=== PATIENT | female | born 1940 | race African-American/Black ===

== ENCOUNTER 2016-03-30 14:58 | Emergency (ER) | payer MEDICARE, OTHER ==
[~2016-03-30 14:58] MED LIST: AMLO10 PO; ATOR40TA PO; CARV25TA PO; CLON.3T TD; ESCI10TA PO; FAMO20TA2 PO; FURO80 PO; HYDRA50 PO; ISOS60TA PO; LABE200T2 PO; LEVEMIR SQ; LORA-392 PO; LOSA100T PO; METO5 PO; NOVOLOGP2 SQ; OMEP20TA PO; TRAM100T19 PO
--- NOTE | 2016-03-30 15:21 | PD ---
HPI Chief Complaint: dizziness Time Seen by Provider: 15:10 Travel History International Travel<30 days: No Contact w/Intl Traveler<30days: No Traveled to known affect area: No History of Present Illness HPI 75-year-old female with history of end-stage renal disease on dialysis (MWF), diabetes, CHF who presents via EMS for evaluation of dizziness and hyperglycemia. For the past week the patient has been feeling lightheaded and dizziness which is worse when she stands for a few minutes. She is also noted that her blood sugars been running in the 500s for the past week. She has been using her medication as prescribed but symptoms persisted and today home health care called EMS. She reports that yesterday she had some nausea but none since then. She does endorse a decreased appetite over the past week. She denies any headache, blurred vision, chest pain or shortness of breath, abdominal pain , fevers or chills, flank pain, dysuria. The patient reports that she missed dialysis on Sunday however she went to dialysis yesterday. Per EMS blood sugar was in the 300s on route. She has no other complaints at this time. Her primary care physician is Dr. Li, her colorectal surgeon is Dr. Palomo. [facility] Past Medical History Arthritis: Yes Asthma: No Autoimmune Disease: No Blood Disorders: Yes (ANEMIA) Anxiety: No Depression: Yes Heart Rhythm Problems: Yes (HEART MURMUR) Cancer: No Cardiac Catheterization: Yes Cardiovascular Problems: Yes (chf) High Cholesterol: Yes Chemotherapy: No Chest Pain: Yes Congestive Heart Failure: Yes COPD: No Cerebrovascular Accident: Yes (2 tias) Coronary Artery Disease: Yes Diabetes: Yes Dialysis: Yes (t/th/sat ) Diminished Hearing: No Endocrine: Yes Gastrointestinal Disorders: No GERD: Yes (GERD) Genitourinary: Yes (DIALYSIS BUT RECENTLY STOPPED/KIDNEYS IMPROVED) Hepatitis: Yes (HEP C) Hiatal Hernia: No Hypertension: Yes Immune Disorder: Yes (HEPATITIS C FROM TRANSFUSION) Implanted Vascular Access Dvce: Yes (rt chest/dialysis port) Musculoskeletal: Yes (ARTHRITIS) Neurologic: Yes (NEUROPATHY HANDS/FEET) Psychiatric: Yes Reproductive: Yes (HYSTERECTOMY) Respiratory: Yes (SOB, PNEUMONIA 2015) Radiation Therapy: No Renal Failure: Yes Seizures: Yes Sleep Apnea: No Thyroid Disease: No Menopausal: Yes Dilation and Curettage (D&C): Yes Past Surgical History Abdominal Surgery: Yes (colonscopy) AICD: No Arteriovenous Shunt: Yes (RT AV FISTULA) Body Medical Devices: FISTULA IN RIGHT ARM Cardiac Surgery: Yes (heart cath) Endocrine Surgery: Yes Eye Surgery: Yes (LOGAN CATARACTS REMOVED, POSSIBLE VITRECTOMY SURGERY) Gynecologic Surgery: Yes (HYSTERECTOMY) Hysterectomy: Yes Joint Replacement: No Oral Surgery: Yes (TONSILLECTOMY) Pacemaker: No Thoracic Surgery: Yes (DIALYSIS CATHETER INSERTION) Other Surgery: Yes Social History Alcohol Use: No Tobacco Use: No Substance Use: No Allergies-Medications (Allergen,Severity, Reaction): Coded Allergies: Darvocet-N 100 (Verified Allergy, Severe, 05/18/15) Reported Meds & Prescriptions Reported Meds & Active Scripts Active Zaroxolyn 5 Mg Tab (Metolazone) 5 Mg Tab 5 Mg PO DAILY Hydralazine HCl 50 Mg Tab 50 Mg PO QID 30 Days Lasix 80 Mg Tab (Furosemide) 80 Mg Tab 80 Mg PO BID [id number] (Clonidine Hcl) 0.3 Mg/24 Hr Dis 1 Patch TD Q7D 30 Days Norvasc (Amlodipine Besylate) 10 Mg Tab 10 Mg PO DAILY 30 Days Reported Ativan (Lorazepam) 0.5 Mg Tab 0.5 Mg PO Q6H Tramadol HCl ER (Tramadol HCl) 100 Mg Tab 100 Mg PO DAILY Labetalol Hcl (Labetalol HCl) 200 Mg Tab 200 Mg PO BID Famotidine 20 Mg Tab 20 Mg PO BID Novolog (Insulin Aspart) 100 Units/ML Inj 3 Units SQ TIDACHS Max dose at bedtime:( )units; sugars less than 70, (0)units; sugars 150-199, (1) unit; sugars 200-249, (3) units; sugars 250-299, (5) units; sugars 300-349, (7) units; sugars greater than 349, (9) units Omeprazole 20 mg (Omeprazole) 20 Mg Tab 1 Tab PO DAILY Losartan Potassium 100 MG (Losartan Potassium) 100 Mg Tab 100 Mg PO DAILY Escitalopram Oxalate 10 Mg Tab 10 Mg PO DAILY Isosorbide Mononitrate Er (Isosorbide Mononitrate) 60 Mg Tab 60 Mg PO DAILY Atorvastatin 40 mg (Atorvastatin Calcium) 40 Mg Tab 40 Mg PO DAILY Carvedilol 25 mg (Carvedilol) 25 Mg Tab 1 Tab PO BID Levemir Insulin (Insulin Detemir) 100 Units/Ml Inj 10 Units SQ HS Review of Systems Except as stated in HPI: all other systems reviewed are Neg Physical Exam Narrative GENERAL: Well developed well-nourished female in no acute distress currently laying on the stretcher in the ambulance hallway. She is answering questions appropriately. SKIN: Warm and dry. HEAD: Atraumatic. Normocephalic. EYES: Pupils equal and round. No scleral icterus. No injection or drainage. ENT: No nasal bleeding or discharge. Mucous membranes pink and moist. NECK: Trachea midline. No JVD. CARDIOVASCULAR: Regular rate and rhythm. No murmur appreciated. RESPIRATORY: No accessory muscle use. Clear to auscultation. Breath sounds equal bilaterally. GASTROINTESTINAL: Abdomen soft, non-tender, nondistended. Hepatic and splenic margins not palpable. MUSCULOSKELETAL: No obvious deformities. NEUROLOGICAL: Awake and alert. No obvious cranial nerve deficits. Motor grossly within normal limits. Normal speech. PSYCHIATRIC: Appropriate mood and affect; insight and judgment normal. Data Data Last Documented VS Vital Signs Date Time Temp Pulse Resp B/P Pulse Ox O2 Delivery O2 Flow Rate FiO2 03/30/16 16:08 99 Room Air 03/30/16 16:07 87 18 03/30/16 16:05 98.7 148/69 Orders Electrocardiogram (03/30/16 15:17) Complete Blood Count With Diff (03/30/16 15:17) Comprehensive Metabolic Panel (03/30/16 15:17) Magnesium (Mg) (03/30/16 15:17) Ckmb (Isoenzyme) Profile (03/30/16 15:17) Troponin I (03/30/16 15:17) Urinalysis - C+S If Indicated (03/30/16 15:17) Chest, Single Ap (03/30/16 15:17) Ct Brain W/O Iv Contrast(Rout) (03/30/16 15:17) Ecg Monitoring (03/30/16 15:17) Iv Access Insert/Monitor (03/30/16 15:17) Oximetry (03/30/16 15:17) Ondansetron Inj (Zofran Inj) (03/30/16 15:30) Sodium Chloride 0.9% Flush (Ns Flush) (03/30/16 15:30) Phosphorus (Po4) (03/30/16 15:17) Beta Hydroxybutyrate (Acetone) (03/30/16 15:21) Abdomen, Decubitus, Left (03/30/16 16:12) Labs Laboratory Tests Test 03/30/16 03/30/16 16:16 19:06 White Blood Count 8.1 TH/MM3 Red Blood Count 3.66 MIL/MM3 Hemoglobin 10.3 GM/DL Hematocrit 31.9 % Mean Corpuscular Volume 87.0 FL Mean Corpuscular Hemoglobin 28.0 PG Mean Corpuscular Hemoglobin 32.2 % Concent Red Cell Distribution Width 15.3 % Platelet Count 214 TH/MM3 Mean Platelet Volume 10.1 FL Neutrophils (%) (Auto) 55.3 % Lymphocytes (%) (Auto) 31.8 % Monocytes (%) (Auto) 9.9 % Eosinophils (%) (Auto) 1.8 % Basophils (%) (Auto) 1.2 % Neutrophils # (Auto) 4.5 TH/MM3 Lymphocytes # (Auto) 2.6 TH/MM3 Monocytes # (Auto) 0.8 TH/MM3 Eosinophils # (Auto) 0.1 TH/MM3 Basophils # (Auto) 0.1 TH/MM3 CBC Comment DIFF FINAL Differential Comment Sodium Level 135 MEQ/L Potassium Level 4.5 MEQ/L Chloride Level 97 MEQ/L Carbon Dioxide Level 27.6 MEQ/L Anion Gap 10 MEQ/L Blood Urea Nitrogen 40 MG/DL Creatinine 3.53 MG/DL Estimat Glomerular Filtration 15 ML/MIN Rate Random Glucose 297 MG/DL Calcium Level 9.0 MG/DL Phosphorus Level 4.2 MG/DL Magnesium Level 1.7 MG/DL Total Bilirubin 0.2 MG/DL Aspartate Amino Transf 24 U/L (AST/SGOT) Alanine Aminotransferase 30 U/L (ALT/SGPT) Alkaline Phosphatase 199 U/L Total Creatine Kinase 50 U/L Troponin I LESS THAN 0.02 NG/ML Total Protein 7.5 GM/DL Albumin 3.0 GM/DL B-Hydroxybutyrate 0.15 MMOL/L Urine Color YELLOW Urine Turbidity HAZY Urine pH 6.0 Urine Specific [place] 1.009 Urine Protein 100 mg/dL Urine Glucose (UA) 300 mg/dL Urine Ketones NEG mg/dL Urine Occult Blood NEG Urine Nitrite NEG Urine Bilirubin NEG Urine Urobilinogen LESS THAN 2.0 MG/DL Urine Leukocyte Esterase NEG Urine RBC 2 /hpf Urine WBC 2 /hpf Urine Squamous Epithelial 5 /hpf Cells Urine Bacteria RARE /hpf Urine Mucus FEW /lpf Microscopic Urinalysis Comment CULT NOT INDICATED MDM Medical Decision Making Medical Screen Exam Complete: Yes Emergency Medical Condition: Yes Medical Record Reviewed: Yes Interpretation(s) CBC hemoglobin 10.3 otherwise unremarkable CMP BUN 40, creatinine 3.53, glucose 297 Troponin, CK within normal limits Beta hydroxybutyrate negative CT brain no acute abnormalities, chronic right sphenoid sinus opacification EKG sinus rhythm with left axis deviation Differential Diagnosis Hyperglycemia, dehydration, electrolyte imbalance, CVA, TIA, ACS, arrhythmia Narrative Course 75-year-old female has been feeling lightheaded and has had issues with hyperglycemia over the past week. Initial examination is reassuring with no focal obvious deficits. Plans for basic lab work, CT of the brain, chest x-ray , urinalysis and EKG. On initial chest x-ray there was concern for possible pneumoperitoneum underneath the left hemidiaphragm and radiologist recommend the left lateral decubitus abdominal x-ray which was negative. The patient has no abdominal pain. The patient's laboratory imaging studies have all been reviewed and are found to be reassuring with no acute process. Her blood sugar is 297. Her kidney function is at baseline. I discussed with my attending who agrees with plan. Upon reassessment the patient is feeling significantly improved and felt that her symptoms are secondary to her blood sugar being high. She is requesting to leave. I feel that this is reasonable given her negative workup and resolved symptoms. Plan is to have her be discharged back on, she plans on going to dialysis as normal tomorrow and I recommended that she follow up with her primary care physician in next 1-2 days return for any acutely new or worsening symptoms. Procedures EKG Prior to Arrival: Yes Diagnosis Primary Impression: Hyperglycemia Additional Instructions: Stay well-hydrated and well-nourished. Follow-up closely in the next 1-2 days with primary care physician. Attend dialysis tomorrow as scheduled. Return for any acutely new or worsening symptoms. Med/Other Pt SpecificInfo: No Change to Meds Disposition: 01 DISCHARGE HOME Condition: Stable Josesito Morelos Mar 30, 2016 15:21
[2016-03-30] MEDS ORDERED: ONDANSETRON HCL 4 MG/2 ML VIAL IVP ONE (15:30)
[2016-03-30] MEDS ORDERED: SODIUM CHLORIDE 0.9% FLUSH 5 ML FLUSH IVF PRN (15:30)
--- NOTE | 2016-03-30 15:47 | RADRPT ---
EXAM DATE/TIME: 03/30/2016 15:27 [facility] COMPARISON: CHEST SINGLE AP, May 18, 2015, 18:04. INDICATIONS : Palpitations. MEDICAL HISTORY : Diabetes mellitus type I. SURGICAL HISTORY : None. ENCOUNTER: Initial ACUITY: 1 day PAIN SCORE: 0/10 LOCATION: Bilateral chest FINDINGS: A single portable frontal view the chest shows a curvilinear lucency below the left hemidiaphragm. Th e lungs are clear. Heart normal in size. Scoliotic curvature of the spine. CONCLUSION: 1. Air leg density below the left hemidiaphragm may relate to the stomach or colon, however, I cannot exclude pneumoperitoneum. If there is concern for pneumoperitoneum consider left lateral decubitus a bdominal x-ray. 2. Clear lungs. Jude Berrios Jr., MD on March 30, 2016 at 15:42 Board Certified Radiologist. This report was verified electronically.
[2016-03-30 16:05] VITALS: BP 148/69; PULSE 87; RESP 18; TEMP 98.7; O2SAT 99
--- NOTE | 2016-03-30 16:06 | RADRPT ---
EXAM DATE/TIME: 03/30/2016 15:52 [facility] COMPARISON: CT BRAIN W/O CONTRAST, May 17, 2014, 18:40. INDICATIONS : Dizziness. RADIATION DOSE: 46.83 CTDIvol (mGy) MEDICAL HISTORY : Cardiovascular disease. Cerebrovascular disease. Hypertension. SURGICAL HISTORY : None. ENCOUNTER: Initial ACUITY: 1 week PAIN SCALE: 0/10 LOCATION: distal TECHNIQUE: Multiple contiguous axial images were obtained of the head. Using automated exposure control and adj ustment of the mA and/or kV according to patient size, radiation dose was kept as low as reasonably a chievable to obtain optimal diagnostic quality images. FINDINGS: CEREBRUM: The ventricles are normal for age. No evidence of midline shift, mass lesion, hemorrhage or acute in farction. No extra-axial fluid collections are seen. POSTERIOR FOSSA: The cerebellum and brainstem are intact. The 4th ventricle is midline. The cerebellopontine angle i s unremarkable. EXTRACRANIAL: The visualized portion of the orbits is intact. There is chronic opacification of the septated right sphenoid sinus with mural thickening. SKULL: The calvaria is intact. No evidence of skull fracture. CONCLUSION: 1. No acute intracranial abnormalities. Chronic right sphenoid sinus opacification. Corbin Vital MD on March 30, 2016 at 16:00 Board Certified Radiologist. This report was verified electronically.
[2016-03-30 16:08] VITALS: O2SAT 99
[2016-03-30 16:28] LABS: AUTOMATED NEUTROPHIL # 4.5 TH/MM3 (1.8-7.7); BASOPHIL # 0.1 TH/MM3 (0-0.2); BASOPHIL % 1.2 % (0.0-2.0); EOSINOPHIL # 0.1 TH/MM3 (0-0.4); EOSINOPHIL % 1.8 % (0.0-4.0); HEMATOCRIT 31.9 % (35.0-46.0); HEMO FLAGS DIFF FINAL; LYMPH % 31.8 % (9.0-44.0); LYMPHOCYTE # 2.6 TH/MM3 (1.0-4.8); MEAN CORPUSCULAR HGB CONC 32.2 % (32.0-36.0); MONO % 9.9 % (0.0-8.0); NEUT % 55.3 % (16.0-70.0); PLATELET COUNT 214 TH/MM3 (150-450); RED BLOOD COUNT 3.66 MIL/MM3 (4.00-5.30); RED CELL DISTRIBUTION WIDTH 15.3 % (11.6-17.2); WHITE BLOOD COUNT 8.1 TH/MM3 (4.0-11.0)
[2016-03-30 16:46] LABS: ANION GAP 10 MEQ/L (5-15); AST (GOT) 24 U/L (15-37); BICARBONATE 27.6 MEQ/L (21.0-32.0); BLOOD UREA NITROGEN 40 MG/DL (7-18); CHLORIDE 97 MEQ/L (98-107); GLOMERULAR FILTRATION RATE 15 ML/MIN (>89); MAGNESIUM 1.7 MG/DL (1.5-2.5); POTASSIUM 4.5 MEQ/L (3.5-5.1); SODIUM (NA) 135 MEQ/L (136-145)
[2016-03-30 16:51] LABS: ALKALINE PHOSPHATASE 199 U/L (45-117); ALT (GPT) 30 U/L (10-53); TOTAL BILIRUBIN ADULT 0.2 MG/DL (0.2-1.0)
[2016-03-30 16:53] LABS: CREATINE KINASE 50 U/L (26-192)
--- NOTE | 2016-03-30 16:58 | RADRPT ---
EXAM DATE/TIME: 03/30/2016 16:44 [facility] COMPARISON: No previous studies available for comparison. INDICATIONS : Possible free air. MEDICAL HISTORY : Diabetes mellitus type I. SURGICAL HISTORY : Hysterectomy. ENCOUNTER: Initial ACUITY: 1 day PAIN SCORE: 0/10 LOCATION: Bilateral abdomen. FINDINGS: Left lateral decubitus view of the abdomen demonstrates a normal bowel gas pattern. No free air is i dentified. No organomegaly is evident. Osseous structures are intact. CONCLUSION: No evidence of obstruction or pneumoperitoneum. Perico Stokes MD on March 30, 2016 at 16:56 Board Certified Radiologist. This report was verified electronically.
[2016-03-30 19:41] LABS: BACTERIA, URINE RARE /hpf; BLOOD, URINE NEG (NEG); COMMENT (UR) CULT NOT INDICATED; CULTURE IF INDICATED CULT NOT INDICATED; GLUCOSE,URINE 300 mg/dL (NEG); KETONE, URINE NEG (NEG); MUCUS URINE FEW /lpf (OCC); NITRITE,URINE NEG (NEG); SQUAMOUS EPITHELIAL CELL URINE 5 /hpf (0-5); URINE COLOR YELLOW (YELLW/STRAW)
[2016-03-30 20:15] VITALS: BP 151/68
--- NOTE | 2016-03-31 12:55 | EKG ---
Date Performed: 03/30/2016 Time Performed: 19:02:20 PTAGE: 75 years EKG: Sinus rhythm POSSIBLE LEFT ATRIAL ENLARGEMENT MARKED LEFT AXIS DEVIATION ABNORMAL ECG PREVIOUS TRACING : 05/19/2015 09.40 Since previous tracing, no significant change noted DOCTOR: Bry Caraballo Interpretating Date/Time 03/31/2016 12:53:49
== END 2016-03-30 21:07 | disposition home or self-care (01) ==
LOC: NEDAMB 14:58
DX: E11.65 Type 2 diabetes mellitus with hyperglycemia (principal); R94.31 Abnormal electrocardiogram [ECG] [EKG]; I13.11 Hypertensive heart and chronic kidney disease without heart failure, with stage 5 chronic kidney disease, or end stage renal disease; E11.22 Type 2 diabetes mellitus with diabetic chronic kidney disease; N18.6 End stage renal disease; Z79.4 Long term (current) use of insulin; Z99.2 Dependence on renal dialysis
CPT/HCPCS: 70450; 71010; 74020; 80053; 81001; 82010; 82550; 83735; 84100; 84484; 85025; 93005

== ENCOUNTER 2016-06-09 10:21 | Inpatient (IN) | payer MEDICARE, OTHER ==
[~2016-06-09] VITALS: Ht 162.6 cm; Wt 73.6 kg
[2016-06-09 10:23] VITALS: BP 150/67; PULSE 78; RESP 20; TEMP 98.6; O2SAT 97
[2016-06-09 10:59] VITALS: BP 140/63; PULSE 73; RESP 18; O2SAT 97
[2016-06-09] MEDS ORDERED: SODIUM CHLOR 0.9% 1000 ML INJ 1,000 ML IV SCH (11:06)
[2016-06-09] MEDS ORDERED: ONDANSETRON HCL 4 MG/2 ML VIAL IVP ONE (11:15)
[2016-06-09] MEDS ORDERED: SODIUM CHLORIDE 0.9% FLUSH 10 ML FLUSH IV FLUSH PRN ×3 (11:15→16:45)
[2016-06-09] MEDS ORDERED: MORPHINE SULFATE 4 MG/ML INJ IV PUSH ONE (11:15)
[2016-06-09 11:19] VITALS: RESP 18; O2SAT 97
[2016-06-09 11:30] LABS: AUTOMATED NEUTROPHIL # 6.2 TH/MM3 (1.8-7.7); BASOPHIL # 0.1 TH/MM3 (0-0.2); BASOPHIL % 0.8 % (0.0-2.0); EOSINOPHIL # 0.1 TH/MM3 (0-0.4); HEMATOCRIT 34.3 % (35.0-46.0); HEMO FLAGS DIFF FINAL; LYMPH % 17.9 % (9.0-44.0); LYMPHOCYTE # 1.6 TH/MM3 (1.0-4.8); MEAN CELL VOLUME 82.3 FL (80.0-100.0); MEAN CORPUSCULAR HEMOGLOBIN 26.7 PG (27.0-34.0); MEAN CORPUSCULAR HGB CONC 32.4 % (32.0-36.0); MONO % 11.7 % (0.0-8.0); NEUT % 68.6 % (16.0-70.0); PLATELET COUNT 180 TH/MM3 (150-450); RED BLOOD COUNT 4.16 MIL/MM3 (4.00-5.30); RED CELL DISTRIBUTION WIDTH 18.5 % (11.6-17.2)
[2016-06-09 11:56] LABS: ALKALINE PHOSPHATASE 270 U/L (45-117); ALT (GPT) 35 U/L (10-53); ANION GAP 9 MEQ/L (5-15); AST (GOT) 55 U/L (15-37); BICARBONATE 28.6 MEQ/L (21.0-32.0); BLOOD UREA NITROGEN 74 MG/DL (7-18); CHLORIDE 101 MEQ/L (98-107); GLOMERULAR FILTRATION RATE 8 ML/MIN (>89); POTASSIUM 4.7 MEQ/L (3.5-5.1); SODIUM (NA) 139 MEQ/L (136-145); TOTAL BILIRUBIN ADULT 0.3 MG/DL (0.2-1.0)
[2016-06-09] MEDS ORDERED: ASPI1TAB91 PO (12:01)
[2016-06-09] MEDS ORDERED: CLON0.2D T-DERMAL (12:01)
[2016-06-09] MEDS ORDERED: OMEP20TA PO (12:01)
[2016-06-09] MEDS ORDERED: BUME2TAB PO (12:01)
[2016-06-09] MEDS ORDERED: LANTUS2P SQ (12:01)
[2016-06-09] MEDS ORDERED: LOSA100T PO (12:01)
[2016-06-09] MEDS ORDERED: METO5TAB3 PO (12:01)
[2016-06-09] MEDS ORDERED: BUPR150XL PO (12:01)
[2016-06-09] MEDS ORDERED: FAMO1TAB37 PO (12:01)
[2016-06-09] MEDS ORDERED: NITR1SUB3 SL (12:01)
[2016-06-09] MEDS ORDERED: TRAM50TA PO (12:01)
[2016-06-09] MEDS ORDERED: HUMALOG SQ (12:01)
[2016-06-09] MEDS ORDERED: AMLO10TA2 PO (12:01)
[2016-06-09] MEDS ORDERED: LEXA10TA PO (12:01)
[2016-06-09] MEDS ORDERED: RENV2.4P PO (12:01)
[2016-06-09] MEDS ORDERED: ATOR40TA16 PO (12:01)
[2016-06-09] MEDS ORDERED: ROPI2 PO (12:01)
--- NOTE | 2016-06-09 12:40 | RADRPT ---
EXAM DATE/TIME: 06/09/2016 11:27 [facility] COMPARISON: CTA ABDOMEN W 3D RECON, May 20, 2015, 9:20. INDICATIONS : Right upper quadrant pain. MEDICAL HISTORY : Hypercholesterolemia. Hypertension. CHF. CAD. Cerebrovascular disease. Renal disease. Diabetic. Hepatitis C. SURGICAL HISTORY : Tonsillectomy. Hysterectomy. Bilateral cataracts. Heart catheterization. Right AV fistula. ENCOUNTER: Initial ACUITY: 1 week PAIN SCORE: 6/10 LOCATION: Right upper quadrant MEASUREMENTS: LIVER: 18.9 cm length COMMON DUCT: 4 mm RIGHT KIDNEY: 11.1 x 5.2 x 4.7 cm FINDINGS: The study is abnormal. There is an enlarged liver with clot identified in the portal vein. Two echo genic masses are seen in the liver as well. There is a non-occlusive clot in the main portal vein as well. The right kidney is echogenic. There is at least one echogenic foci in the gallbladder consistent wi th gallstones with a thickened gallbladder wall. CONCLUSION: Abnormal ultrasound as described above. CT scan with IV contrast is suggested. Remberto Can MD FACR on June 09, 2016 at 12:19 Board Certified Radiologist. This report was verified electronically.
[2016-06-09 13:00] VITALS: BP 151/68; PULSE 67; RESP 18; O2SAT 95
--- NOTE | 2016-06-09 13:25 | PD ---
HPI Chief Complaint: Abdominal Pain Time Seen by Provider: 10:56 Travel History International Travel<30 days: No Contact w/Intl Traveler<30days: No Traveled to known affect area: No History of Present Illness HPI This 75-year-old woman who presents to the emergency department complaining of upper abdominal pain. Symptoms been ongoing for the past week or so. The been fairly constant, with exacerbations with deep breathing. She is a lot of tenderness there. She had some vomiting today. She otherwise had been feeling generally well and healthy. She was told in the past she had gallstones and she had an ultrasound done on her liver. The did the ultrasound because she had some spots on her liver they're keeping an eye on. She otherwise has been feeling generally well. She has end-stage renal disease with hemodialysis on Sunday when same Sunday. She did not feel well enough to go today. History Past Medical History Narrative Medical End-stage renal disease, malignancy Sunday Diabetes Hypertension CHF Tetanus Vaccination: > 5 Years Influenza Vaccination: Yes Menopausal: Yes Dilation and Curettage (D&C): Yes Social History Alcohol Use: No Tobacco Use: No Allergies-Medications (Allergen,Severity, Reaction): Coded Allergies: Darvocet-N 100 (Verified Allergy, Severe, 06/09/16) Reported Meds & Prescriptions Reported Meds & Active Scripts Active Reported Tramadol (Tramadol HCl) 50 Mg Tab 50 Mg PO BID PRN Requip (Ropinirole HCl) 2 Mg Tab 2 Mg PO HS Renvela Liq (Sevelamer Carbonate) 2.4 Gm Pack 2.4 Gm PO TID Mix 1 packet (2.4gm) in liquid Omeprazole 20 Mg Tab 20 Mg PO DAILY Nitroglycerin SL (Nitroglycerin) 0.4 Mg Subl 0.4 Mg SL DIRECTED PRN ONE TABLET UNDER THE TONGUE NEEDED FOR CHEST PAIN, MAY REPEAT EVERY FIVE MINUTES FOR A TOTAL OF 3 DOSES OR CALL 911 IF NO RELIEF Metolazone 5 Mg Tab 5 Mg PO DAILY Losartan (Losartan Potassium) 100 Mg Tab 100 Mg PO DAILY Lantus Inj (Insulin Glargine) 100 Unit/Ml Inj 20 Units SQ HS Humalog Inj (Insulin Human Lispro) 1,000 Unit/10 Ml Vial 3 Units SQ ACHS Pepcid (Famotidine) 20 Mg Tab 20 Mg PO BID Lexapro (Escitalopram Oxalate) 10 Mg Tab 10 Mg PO DAILY Wellbutrin Xl 24 HR (Bupropion HCl) 150 Mg Tab 150 Mg PO DAILY Clonidine 168 HR Patch (Clonidine HCl) 0.2 Mg/24 Hr Patch 1 Patch T-DERMAL WEEKLY Sundays Bumetanide 2 Mg Tab 2 Mg PO BID Atorvastatin (Atorvastatin Calcium) 40 Mg Tab 40 Mg PO HS Aspirin Adult Low Strength (Aspirin) 81 Mg Tabdr 81 Mg PO DAILY Amlodipine (Amlodipine Besylate) 10 Mg Tab 10 Mg PO DAILY Review of Systems Except as stated in HPI: all other systems reviewed are Neg Physical Exam Narrative GENERAL: Well-appearing 75-year-old woman, appears uncomfortable and nontoxic. SKIN: Focused skin assessment warm/dry. HEAD: Atraumatic. Normocephalic. EYES: Pupils equal and round. No scleral icterus. No injection or drainage. ENT: No nasal bleeding or discharge. Mucous membranes pink and moist. NECK: Trachea midline. No JVD. CARDIOVASCULAR: Regular rate and rhythm. No murmur appreciated. RESPIRATORY: No accessory muscle use. Clear to auscultation. Breath sounds equal bilaterally. GASTROINTESTINAL: Abdomen is obese, soft, with marked right upper quadrant tenderness. Positive for Patterson sign. MUSCULOSKELETAL: No obvious deformities. No clubbing. No cyanosis. No edema. NEUROLOGICAL: Awake and alert. No obvious cranial nerve deficits. Motor grossly within normal limits. Normal speech. PSYCHIATRIC: Appropriate mood and affect; insight and judgment normal. Data Data Last Documented VS Vital Signs Date Time Temp Pulse Resp B/P Pulse Ox O2 Delivery O2 Flow Rate FiO2 06/09/16 15:10 68 20 157/69 95 Room Air 06/09/16 10:23 98.6 Orders Complete Blood Count With Diff (06/09/16 11:06) Comprehensive Metabolic Panel (06/09/16 11:06) Lipase (06/09/16 11:06) Urinalysis - C+S If Indicated (06/09/16 11:06) Us Abdomen Gallbladder (06/09/16 ) Iv Access Insert/Monitor (06/09/16 11:06) Ecg Monitoring (06/09/16 11:06) Oximetry (06/09/16 11:06) NPO (06/09/16 11:06) Morphine Inj (Morphine Inj) (06/09/16 11:15) Ondansetron Inj (Zofran Inj) (06/09/16 11:15) Sodium Chlor 0.9% 1000 Ml Inj (Ns 1000 M (06/09/16 11:06) Sodium Chloride 0.9% Flush (Ns Flush) (06/09/16 11:15) Ct Abd/Pel W/O Iv Contrast (06/09/16 ) Admit Order (Ed Use Only) (06/09/16 ) Consult General Surgery (06/09/16 ) Labs Laboratory Tests Test 06/09/16 11:00 White Blood Count 9.0 TH/MM3 Red Blood Count 4.16 MIL/MM3 Hemoglobin 11.1 GM/DL Hematocrit 34.3 % Mean Corpuscular Volume 82.3 FL Mean Corpuscular Hemoglobin 26.7 PG Mean Corpuscular Hemoglobin 32.4 % Concent Red Cell Distribution Width 18.5 % Platelet Count 180 TH/MM3 Mean Platelet Volume 10.4 FL Neutrophils (%) (Auto) 68.6 % Lymphocytes (%) (Auto) 17.9 % Monocytes (%) (Auto) 11.7 % Eosinophils (%) (Auto) 1.0 % Basophils (%) (Auto) 0.8 % Neutrophils # (Auto) 6.2 TH/MM3 Lymphocytes # (Auto) 1.6 TH/MM3 Monocytes # (Auto) 1.1 TH/MM3 Eosinophils # (Auto) 0.1 TH/MM3 Basophils # (Auto) 0.1 TH/MM3 CBC Comment DIFF FINAL Differential Comment Sodium Level 139 MEQ/L Potassium Level 4.7 MEQ/L Chloride Level 101 MEQ/L Carbon Dioxide Level 28.6 MEQ/L Anion Gap 9 MEQ/L Blood Urea Nitrogen 74 MG/DL Creatinine 5.92 MG/DL Estimat Glomerular Filtration 8 ML/MIN Rate Random Glucose 163 MG/DL Calcium Level 8.6 MG/DL Total Bilirubin 0.3 MG/DL Aspartate Amino Transf 55 U/L (AST/SGOT) Alanine Aminotransferase 35 U/L (ALT/SGPT) Alkaline Phosphatase 270 U/L Total Protein 7.3 GM/DL Albumin 2.7 GM/DL Lipase 81 U/L [facility] Medical Decision Making Medical Screen Exam Complete: Yes Emergency Medical Condition: Yes Interpretation(s) LABS: CBC remarkable for mild anemia. CMP remarkable for elevated BUN and creatinine consistent with end-stage renal disease, alkaline phosphatase 270 Lipase normal Right upper quadrant ultrasound: An enlarged liver clot identified in the portal vein. 2 echogenic masses are seen in the liver as well. Nonocclusive clot in the main portal vein. At least one gallstone with a thickened gallbladder wall. Differential Diagnosis Cholecystitis, hepatitis, diaphragmatic irritation, shingles, other Narrative Course Medical decision making INITIAL: This a 75 old woman presents to the emergency department with right upper quadrant abdominal pain, marked right upper quadrant tenderness, worse with deep breathing. Likely early affected by eating but her appetite is been down a she wasn't eating much. Poorly history of gallstones and some liver spots they're watching with ultrasound at some point in the past. We'll check labs, ultrasound for cholecystitis, reassess. FINAL: 74 year-old woman, liver tumors right upper quadrant pain with marked tenderness. I suspect she has cholecystitis. The ultrasound shows a gallstone and gallbladder wall thickening. She does also have these tumors in her liver. There is no pericholecystic fluid and there is no evidence of right upper quadrant inflammation on the CT. We'll plan on admission to medicine, monitoring, strict Gen. surgery consultation for further evaluation. Diagnosis Primary Impression: Right upper quadrant pain Santi Obrien MD Jun 09, 2016 13:25
--- NOTE | 2016-06-09 14:57 | RADRPT ---
EXAM DATE/TIME: 06/09/2016 14:28 [facility] COMPARISON: CTA ABDOMEN W 3D RECON, May 20, 2015, 9:20. INDICATIONS : Right lower/flank pain. ORAL CONTRAST: No oral contrast ingested. RADIATION DOSE: 10.12 CTDIvol (mGy) MEDICAL HISTORY : Cardiovascular disease. Hypertension. Hepatitis C.Diabetes, renal failure SURGICAL HISTORY : None. ENCOUNTER: Initial ACUITY: 1 day PAIN SCALE: 5/10 LOCATION: Right lower quadrant TECHNIQUE: Volumetric scanning of the abdomen and pelvis was performed. Using automated exposure control and ad justment of the mA and/or kV according to patient size, radiation dose was kept as low as reasonably achievable to obtain optimal diagnostic quality images. FINDINGS: LOWER LUNGS: The visualized lower lungs are clear. LIVER: Homogeneous density without lesion. There is no dilation of the biliary tree. Small calcified gallst ones are noted layering dependently in the gallbladder with no wall thickening or inflammatory change . SPLEEN: Normal size without lesion. PANCREAS: Within normal limits. KIDNEYS: Normal in size and shape. There is no mass, stone, or hydronephrosis. ADRENAL GLANDS: Within normal limits. VASCULAR: There is no aortic aneurysm. BOWEL/MESENTERY: Multiple diverticuli present greatest in the sigmoid colon. There is no inflammatory change. The stom ach, small bowel, and colon demonstrate no acute abnormality. There is no free intraperitoneal air o r fluid. ABDOMINAL WALL: Within normal limits. RETROPERITONEUM: There is no lymphadenopathy. BLADDER: No wall thickening or mass. REPRODUCTIVE: Within normal limits. INGUINAL: There is no lymphadenopathy or hernia. MUSCULOSKELETAL: Within normal limits for patient age. CONCLUSION: 1. Small calcified gallstones with no wall thickening or inflammatory change. 2. Mild diverticulosis with no inflammatory change or obstruction. 3. No renal calculi or hydronephrosis Jani Delgado MD on June 09, 2016 at 14:50 Board Certified Radiologist. This report was verified electronically.
[2016-06-09 15:10] VITALS: BP 157/69; PULSE 68; RESP 20; O2SAT 95
[2016-06-09] MEDS ORDERED: ACETAMINOPHEN 325 MG TAB PO PRN ×2 (16:00→16:45)
[2016-06-09] MEDS ORDERED: NALOXONE HCL 0.4 MG/ML AMP IV PRN (16:00)
[2016-06-09] MEDS ORDERED: ONDANSETRON HCL 4 MG/2 ML VIAL IVP PRN (16:00)
[2016-06-09] MEDS ORDERED: SODIUM CHLOR 0.9% 1000 ML INJ 1,000 ML IV PRN ×3 (16:42)
[2016-06-09] MEDS ORDERED: diphenhydrAMINE HCL 25 MG CAP PO PRN (16:45)
[2016-06-09] MEDS ORDERED: MANNITOL 12.5 GM/50 ML VIAL IV PRN (16:45)
[2016-06-09] MEDS ORDERED: ALBUMIN HUMAN 25% 25 GM/100 ML BAGP IV PRN (16:45)
[2016-06-09] MEDS ORDERED: GELATIN 12 MM/7 MM FOAM TOP PRN (16:45)
[2016-06-09] MEDS ORDERED: cloNIDine HCL 0.1 MG TAB PO PRN (16:45)
[2016-06-09] MEDS ORDERED: NITROGLYCERIN 0.4 MG SL 25 TABS/BTL SL PRN (16:45)
[2016-06-09] MEDS ORDERED: GENTAMICIN SULFATE (DIALYSIS USE ONLY) 20 MG/2 ML VIAL IV PRN (16:45)
[2016-06-09] MEDS ORDERED: HEPARIN SODIUM - IV 10,000 UNITS/10 ML VIAL IVF PRN (16:45)
[2016-06-09] MEDS ORDERED: HEPARIN SODIUM - IV 10,000 UNITS/10 ML VIAL PRN (16:45)
--- NOTE | 2016-06-09 17:00 | HHI.HP ---
HPI Service [facility] Primary Care Physician Najma Li Admission Diagnosis right upper quadrant pain, rule out cholecystitis Diagnoses: Chief Complaint: abdomen pain (Nurys Garner) Travel History International Travel<30 Days: No Contact w/Intl Traveler <30 Da: No Traveled to Known Affected Are: No (Nurys Garner) History of Present Illness This is a 75 -year-old elderly black female with significant past medical history of hypertension, hyperlipidemia, CVA, type 2 diabetes, end-stage renal disease on dialysis Sunday. Patient presented to the emergency room complaining of right upper abdomen pain. Patient indicates that the symptoms started around Sunday, she describes this as a 'soreness', sometimes it is intense up to level 10. Pain radiates from right upper quadrant around to her back, worse with deep breathing and improves with rest. It is not exacerbated by any food. Patient endorses that she has been loosing weight, she was told by her PCP that she lost approximately 9 pounds in one month. She also has had very poor appetite, food just doesn't taste very well. She has also had a few episodes of nausea vomiting, had one today with white color emesis. Her bowels are moving regularly, no blood in the stool. Endorses that she follows up with Dr. Barron. She was in to see him approximately a week ago as she has been followed for 3 liver lesions that could possibly be cancer. She was also told by him that she has gallstones. She has been referred to follow-up with Dr. Mendes for possible chemotherapy or radiation. She denies having a liver biopsy. Indicates that she had possibly a CT of the abdomen and an ultrasound at [place]. She's noted some shortness of breath, no chest pain. No recent fever, has chills. In the emergency room, patient was evaluated. Total bili was 0.03, AST 55, ALT 35. Alkaline phosphatase 270. CBC essentially unremarkable except for mild anemia, hemoglobin 11.1, hematocrit 34.3. Initial ultrasound of the gallbladder was completed and recommended abdomen pelvis CT. Results as noted below. Last Impressions Gall Bladder Ultrasound 06/09/16 0000 Signed Impressions: Service Date/Time: Thursday, June 09, 2016 11:27 - CONCLUSION: Abnormal ultrasound as described above. CT scan with IV contrast is suggested. Remberto Can MD FACR Abdomen/Pelvis CT 06/09/16 0000 Signed Impressions: Service Date/Time: Thursday, June 09, 2016 14:28 - CONCLUSION: 1. Small calcified gallstones with no wall thickening or inflammatory change. 2. Mild diverticulosis with no inflammatory change or obstruction. 3. No renal calculi or hydronephrosis Jani Delgado MD Emergency room physician discussed findings with Dr. Matamoros, he has been consulted for possible cholecystitis. Her pain has lessened, she has received morphine. Patient is admitted for further evaluation and treatment. (Nurys Garner) Review of Systems Constitutional: COMPLAINS OF: Weight loss, Change in appetite, DENIES: Diaphoretic episodes, Fatigue, Fever, Weight gain, Chills, Dizziness, Night Sweats Endocrine: DENIES: Abnorml menstrual pattern, Heat/cold intolerance, Polydipsia , Polyuria, Polyphagia Eyes: DENIES: Blurred vision, Diplopia, Eye inflammation, Eye pain, Vision loss , Photosensitivity, Double Vision Ears, nose, mouth, throat: DENIES: Tinnitus, Hearing loss, Vertigo, Nasal discharge, Oral lesions, Throat pain, Hoarseness, Ear Pain, Running Nose, Epistaxis, Sinus Pain, Toothache, Odynophagia Respiratory: COMPLAINS OF: Shortness of breath, DENIES: Apneas, Cough, Snoring , Wheezing, Hemoptysis, Sputum production Cardiovascular: DENIES: Chest pain, Palpitations, Syncope, Dyspnea on Exertion , PND, Lower Extremity Edema, Orthopnea, Claudication Gastrointestinal: COMPLAINS OF: Abdominal pain, Nausea, Vomiting, Anorexia, DENIES: Black stools, Bloody stools, Constipation, Diarrhea, Difficulty Swallowing Genitourinary: DENIES: Abnormal vaginal bleeding, Dysmenorrhea, Dyspareunia, Sexual dysfunction, Urinary frequency, Urinary incontinence, Urgency, Hematuria , Dysuria, Nocturia, Vaginal discharge Musculoskeletal: DENIES: Joint pain, Muscle aches, Stiffness, Joint Swelling, Back pain, Neck pain Integumentary: DENIES: Abnormal pigmentation, Pruritus, Rash, Nail changes, Breast masses, Breast skin changes, Nipple discharge Hematologic/lymphatic: DENIES: Bruising, Lymphadenopathy Immunologic/allergic: DENIES: Eczema, Urticaria Neurologic: DENIES: Abnormal gait, Headache, Localized weakness, Paresthesias, Seizures, Speech Problems, Tremor, Poor Balance Psychiatric: DENIES: Anxiety, Confusion, Mood changes, Depression, Hallucinations, Agitation, Suicidal Ideation, Homicidal Ideation, Delusions ( Nurys Garner) Past Family Social History Past Medical History arthritis, depression, hypertension, CHF, hyperlipidemia, coronary artery disease, diabetes mellitus, CKD with history of dialysis but has not had dialysis September 2014, GERD, hepatitis C, history of C. difficile colitis, CVA and COPD Past Surgical History Bilateral cataract removal, hysterectomy, tonsillectomy, dialysis catheter insertion Reported Medications Reported Meds & Active Scripts Active Reported Tramadol (Tramadol HCl) 50 Mg Tab 50 Mg PO BID PRN Requip (Ropinirole HCl) 2 Mg Tab 2 Mg PO HS Renvela Liq (Sevelamer Carbonate) 2.4 Gm Pack 2.4 Gm PO TID Mix 1 packet (2.4gm) in liquid Omeprazole 20 Mg Tab 20 Mg PO DAILY Nitroglycerin SL (Nitroglycerin) 0.4 Mg Subl 0.4 Mg SL DIRECTED PRN ONE TABLET UNDER THE TONGUE NEEDED FOR CHEST PAIN, MAY REPEAT EVERY FIVE MINUTES FOR A TOTAL OF 3 DOSES OR CALL 911 IF NO RELIEF Metolazone 5 Mg Tab 5 Mg PO DAILY Losartan (Losartan Potassium) 100 Mg Tab 100 Mg PO DAILY Lantus Inj (Insulin Glargine) 100 Unit/Ml Inj 20 Units SQ HS Humalog Inj (Insulin Human Lispro) 1,000 Unit/10 Ml Vial 3 Units SQ ACHS Pepcid (Famotidine) 20 Mg Tab 20 Mg PO BID Lexapro (Escitalopram Oxalate) 10 Mg Tab 10 Mg PO DAILY Wellbutrin Xl 24 HR (Bupropion HCl) 150 Mg Tab 150 Mg PO DAILY Clonidine 168 HR Patch (Clonidine HCl) 0.2 Mg/24 Hr Patch 1 Patch T-DERMAL WEEKLY Sundays Bumetanide 2 Mg Tab 2 Mg PO BID Atorvastatin (Atorvastatin Calcium) 40 Mg Tab 40 Mg PO HS Aspirin Adult Low Strength (Aspirin) 81 Mg Tabdr 81 Mg PO DAILY Amlodipine (Amlodipine Besylate) 10 Mg Tab 10 Mg PO DAILY (Nurys Garner) Allergies: Coded Allergies: Darvocet-N 100 (Verified Allergy, Severe, 06/09/16) Active Ordered Medications Inpatient Medications Acetaminophen (Tylenol) 650 mg UNSCH PRN PO for headach, pain, temp > 101F; Start 06/09/16 at 16:45; Status UNV Albumin Human (Albumin 25% Inj) 25 gm UNSCH PRN IV WITH DIALYSIS; Start at 16:45 Clonidine (Catapres) 0.1 mg UNSCH PRN PO for BP > 180/100 X 2 readings; Start 06/09/16 at 16:45; Status UNV Diphenhydramine HCl (Benadryl) 25 mg UNSCH PRN PO for hives/itching/anaphylaxis ; Start 06/09/16 at 16:45; Status UNV Gelatin (Gelfoam 12 Mm/7 Mm Top) 1 foam UNSCH PRN TOP SEE LABEL COMMENTS; Start 06/09/16 at 16:45; Status UNV Gentamicin Sulfate (Gentamicin (Dialysis) Inj) 20 mg UNSCH PRN IV WITH DIALYSIS ; Start 06/09/16 at 16:45 Heparin Sodium (Porcine) (Heparin Inj) UNSCH PRN .XX WITH DIALYSIS; Start at 16:45 Heparin Sodium (Porcine) 8000 units 8,000 units UNSCH PRN IVF WITH DIALYSIS; Start 06/09/16 at 16:45 Mannitol (Mannitol Inj) 12.5 gm UNSCH PRN IV WITH DIALYSIS; Start 06/09/16 at 16:45 Morphine Sulfate (Morphine Inj) 4 mg ONCE ONCE IV PUSH Last administered on t 12:11; Start 06/09/16 at 11:15; Stop 06/09/16 at 11:16; Status DC Naloxone HCl (Narcan Inj) 0.4 mg UNSCH PRN IV SEE LABEL COMMENTS; Start at 16:00 Nitroglycerin (Nitrostat Sl) 0.4 mg UNSCH PRN SL CHEST PAIN; Start 06/09/16 at 16:45; Status UNV Ondansetron HCl (Zofran Inj) 4 mg UNSCH PRN IV WITH DIALYSIS; Start 06/09/16 at 16:45; Status UNV Sodium Chloride (NS 1000 ml Inj) 1,000 ml @ 0 mls/hr Q0M PRN IV WITH DIALYSIS; Start 06/09/16 at 16:42 Sodium Chloride (NS Flush) 5 ml UNSCH PRN IV FLUSH WITH DIALYSIS; Start at 16:45 Family History Reviewed and noncontributory Social History Lives at home alone has daughter who lives close by and helps often Drinks one beer per week Quit smoking January 2014 Denies illicit drug use Uses walker for ambulation (Nurys Garner) Physical Exam Vital Signs Vital Signs Date Time Temp Pulse Resp B/P Pulse Ox O2 Delivery O2 Flow Rate FiO2 06/09/16 15:10 68 20 157/69 95 Room Air 06/09/16 15:09 18 06/09/16 13:00 67 18 151/68 95 Room Air 06/09/16 11:19 18 97 Room Air 06/09/16 10:59 73 18 140/63 97 Room Air 06/09/16 10:50 18 06/09/16 10:23 98.6 78 20 150/67 97 Room Air Physical Exam GENERAL: This is a well-nourished, well-developed patient, in no apparent distress. SKIN: No rashes, ecchymoses or lesions. Cool and dry. HEAD: Atraumatic. Normocephalic. No temporal or scalp tenderness. EYES: Pupils equal round and reactive. Extraocular motions intact. No scleral icterus. No injection or drainage. ENT: Nose without bleeding, purulent drainage or septal hematoma. Throat without erythema, tonsillar hypertrophy or exudate. Uvula midline. Airway patent. NECK: Trachea midline. No JVD or lymphadenopathy. Supple, nontender, no meningeal signs. CARDIOVASCULAR: Regular rate and rhythm without murmurs, gallops, or rubs. Right arm AV fistula with positive bruit and thrill. RESPIRATORY: Clear to auscultation. Breath sounds equal bilaterally. No wheezes , rales, or rhonchi. GASTROINTESTINAL: Abdomen soft, right upper quadrant tenderness, nondistended. No hepato-splenomegaly, or palpable masses. No guarding. MUSCULOSKELETAL: Extremities without clubbing, cyanosis, or edema. No joint tenderness, effusion, or edema noted. No calf tenderness. Negative Homans sign bilaterally. NEUROLOGICAL: Awake, alert oriented 3. No focal deficit Laboratory Laboratory Tests Test 06/09/16 11:00 White Blood Count 9.0 Red Blood Count 4.16 Hemoglobin 11.1 Hematocrit 34.3 Mean Corpuscular Volume 82.3 Mean Corpuscular Hemoglobin 26.7 Mean Corpuscular Hemoglobin 32.4 Concent Red Cell Distribution Width 18.5 Platelet Count 180 Mean Platelet Volume 10.4 Neutrophils (%) (Auto) 68.6 Lymphocytes (%) (Auto) 17.9 Monocytes (%) (Auto) 11.7 Eosinophils (%) (Auto) 1.0 Basophils (%) (Auto) 0.8 Neutrophils # (Auto) 6.2 Lymphocytes # (Auto) 1.6 Monocytes # (Auto) 1.1 Eosinophils # (Auto) 0.1 Basophils # (Auto) 0.1 CBC Comment DIFF FINAL Differential Comment Sodium Level 139 Potassium Level 4.7 Chloride Level 101 Carbon Dioxide Level 28.6 Anion Gap 9 Blood Urea Nitrogen 74 Creatinine 5.92 Estimat Glomerular Filtration 8 Rate Random Glucose 163 Calcium Level 8.6 Total Bilirubin 0.3 Aspartate Amino Transf 55 (AST/SGOT) Alanine Aminotransferase 35 (ALT/SGPT) Alkaline Phosphatase 270 Total Protein 7.3 Albumin 2.7 Lipase 81 (Nurys Garner) Result Diagram: 06/09/16 1100 06/09/16 1100 Imaging Last Impressions Abdomen/Pelvis CT 06/09/16 0000 Signed Impressions: Service Date/Time: Thursday, June 09, 2016 14:28 - CONCLUSION: 1. Small calcified gallstones with no wall thickening or inflammatory change. 2. Mild diverticulosis with no inflammatory change or obstruction. 3. No renal calculi or hydronephrosis Jani Delgado MD (Nurys Garner) Assessment and Plan Problem List: (1) Right upper quadrant pain (2) ESRD (end stage renal disease) (3) Diabetes mellitus (4) COPD (chronic obstructive pulmonary disease) (5) Depression (6) Hyperlipidemia (7) Hepatitis C (8) Anorexia (9) Weight loss Assessment and Plan Admit to Dr. Garvin 75-year-old elderly black female presented to the emergency room with right upper quadrant pain radiating to back, associated with nausea, vomiting, anorexia, weight loss. History of gallstones and liver lesions, currently undergoing workup. 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 In addition to echogenic masses were noted in the liver. -Keep patient nothing by mouth -Gen. surgery consultation, Dr. Matamoros has been notified -Spoke to his nurse practitioner, hold off on HIDA scan and antibiotics at this time. -Morphine 2 mg IV push every 4 as needed for pain Liver masses, possible malignancy. Patient currently undergoing workup by gastroenterology, has been referred to oncology Dr. Mendes. -Continue to monitor closely Patient is to follow-up with Dr. Mendes as outpatient. End-stage renal disease, on dialysis Sunday and Sunday Consult Dr. Vallecillo for renal management Hypertension, stable Continue home medication Type 2 diabetes Accu-Cheks before meals and at bedtime with insulin therapy SCDs for DVT prophylaxis Omeprazole for GI prophylaxis Home medications reviewed, initiated as indicated Plan of care has been discussed with the patient, attending and registered nurse. Further management of the patient will be dependent on the hospital course This patient was seen by myself and Dr. Garvin, this H&P is written on his behalf (Nurys Garner) Assessment and Plan pt is seen & examined d/w PT d/w nurys barnard w above Gen surgery consulted ? HIDA scan IV analgesic cont supportive care (Misael Garvin MD) Problem Qualifiers (1) Diabetes mellitus: (2) COPD (chronic obstructive pulmonary disease): Qualified Code: J44.9 - Chronic obstructive pulmonary disease, unspecified COPD type (3) Depression: Qualified Code: F32.9 - Depression, unspecified depression type (4) Hyperlipidemia: Qualified Code: E78.5 - Hyperlipidemia, unspecified hyperlipidemia type (5) Hepatitis C: Qualified Code: B18.2 - Chronic hepatitis C without hepatic coma Nurys Garner Jun 09, 2016 17:00 Misael Garvin MD Jun 09, 2016 18:05
[2016-06-09] MEDS ORDERED: MORPHINE SULFATE 4 MG/ML INJ IV PUSH PRN (17:45)
[2016-06-09] MEDS ORDERED: DEXTROSE 50% IN WATER 50 ML VIAL(D50) IV PUSH PRN (18:00)
[2016-06-09] MEDS ORDERED: GLUCAGON 1 MG/ML VIAL OTHER PRN (18:00)
[2016-06-09 20:00] VITALS: BP 156/69; PULSE 73; RESP 18; TEMP 99; O2SAT 91
[2016-06-09] MEDS ORDERED: cloNIDine HCL 0.2 MG/24 HR PATCH T-DERMAL SCH (20:00)
[2016-06-09] MEDS: INSULIN ASPART SUPPLEMENTAL SCALE SQ SCH (21:00)
[2016-06-09] MEDS: BUMETANIDE 1 MG TAB PO SCH (22:28)
[2016-06-09] MEDS: SODIUM CHLORIDE 0.9% FLUSH 10 ML FLUSH IV FLUSH SCH (22:29)
[2016-06-09] MEDS: SEVELAMER CARBONATE 800 MG TAB PO SCH (22:42)
[2016-06-10] VITALS (8 sets, daily range): BP systolic 120–142; BP diastolic 59–67; PULSE 67–80; RESP 17–20; TEMP 96.5–98.6; O2SAT 92–97
[2016-06-10] MEDS: INSULIN ASPART SUPPLEMENTAL SCALE SQ SCH ×4 (06:31→21:04)
[2016-06-10 08:08] LABS: AUTOMATED NEUTROPHIL # 3.9 TH/MM3 (1.8-7.7); BASOPHIL % 0.6 % (0.0-2.0); EOSINOPHIL # 0.1 TH/MM3 (0-0.4); EOSINOPHIL % 1.2 % (0.0-4.0); HEMATOCRIT 35.4 % (35.0-46.0); HEMO FLAGS DIFF FINAL; LYMPH % 26.3 % (9.0-44.0); LYMPHOCYTE # 1.7 TH/MM3 (1.0-4.8); MEAN CELL VOLUME 82.9 FL (80.0-100.0); MEAN CORPUSCULAR HEMOGLOBIN 26.6 PG (27.0-34.0); MEAN CORPUSCULAR HGB CONC 32.1 % (32.0-36.0); MONO % 12.5 % (0.0-8.0); NEUT % 59.4 % (16.0-70.0); PLATELET COUNT 206 TH/MM3 (150-450); RED BLOOD COUNT 4.27 MIL/MM3 (4.00-5.30); RED CELL DISTRIBUTION WIDTH 18.3 % (11.6-17.2); WHITE BLOOD COUNT 6.5 TH/MM3 (4.0-11.0)
[2016-06-10 08:38] LABS: ALKALINE PHOSPHATASE 243 U/L (45-117); ALT (GPT) 31 U/L (10-53); ANION GAP 10 MEQ/L (5-15); AST (GOT) 43 U/L (15-37); BICARBONATE 29.3 MEQ/L (21.0-32.0); BLOOD UREA NITROGEN 48 MG/DL (7-18); CHLORIDE 101 MEQ/L (98-107); GLOMERULAR FILTRATION RATE 12 ML/MIN (>89); POTASSIUM 4.3 MEQ/L (3.5-5.1); SODIUM (NA) 140 MEQ/L (136-145); TOTAL BILIRUBIN ADULT 0.4 MG/DL (0.2-1.0)
--- NOTE | 2016-06-10 08:45 | PD.CONS ---
HPI Service Nephrology Consult Requested By Reason for Consult ESRD Primary Care Physician Najma Li History of Present Illness Ms. Luis is a 75 year old woman with history of ESRD, hypertension admitted with with abdominal pain. Apparently she has history of liver lesions which I was not aware of. Patient is being followed by GI and has been referred to Oncology. US performed at the time of admission revealed 2 echogenic liver lesions and gall stones. It also suggested portal vein thrombosis. CT fails to mention liver lesions, but this was done without IV contrast. She was dialyzed yesterday. Review of Systems Constitutional: COMPLAINS OF: Fatigue, Weight loss, DENIES: Fever Eyes: DENIES: Blurred vision Ears, nose, mouth, throat: DENIES: Vertigo Cardiovascular: COMPLAINS OF: Dyspnea on Exertion, DENIES: Chest pain, Palpitations Gastrointestinal: COMPLAINS OF: Abdominal pain, DENIES: Black stools Integumentary: DENIES: Abnormal pigmentation Past Family Social History Allergies: Coded Allergies: Darvocet-N 100 (Verified Allergy, Severe, 06/09/16) Past Medical History Hypertension CVA ESRD Hepatitis C Anemia Type 2 diabetes mellitus Reported Medications Tramadol (Tramadol HCl) 50 Mg Tab 50 Mg PO BID PRN Requip (Ropinirole HCl) 2 Mg Tab 2 Mg PO HS Renvela Liq (Sevelamer Carbonate) 2.4 Gm Pack 2.4 Gm PO TID Mix 1 packet (2.4gm) in liquid Omeprazole 20 Mg Tab 20 Mg PO DAILY Nitroglycerin SL (Nitroglycerin) 0.4 Mg Subl 0.4 Mg SL DIRECTED PRN ONE TABLET UNDER THE TONGUE NEEDED FOR CHEST PAIN, MAY REPEAT EVERY FIVE MINUTES FOR A TOTAL OF 3 DOSES OR CALL 911 IF NO RELIEF Metolazone 5 Mg Tab 5 Mg PO DAILY Losartan (Losartan Potassium) 100 Mg Tab 100 Mg PO DAILY Lantus Inj (Insulin Glargine) 100 Unit/Ml Inj 20 Units SQ HS Humalog Inj (Insulin Human Lispro) 1,000 Unit/10 Ml Vial 3 Units SQ ACHS Pepcid (Famotidine) 20 Mg Tab 20 Mg PO BID Lexapro (Escitalopram Oxalate) 10 Mg Tab 10 Mg PO DAILY Wellbutrin Xl 24 HR (Bupropion HCl) 150 Mg Tab 150 Mg PO DAILY Clonidine 168 HR Patch (Clonidine HCl) 0.2 Mg/24 Hr Patch 1 Patch T-DERMAL WEEKLY Sundays Bumetanide 2 Mg Tab 2 Mg PO BID Atorvastatin (Atorvastatin Calcium) 40 Mg Tab 40 Mg PO HS Aspirin Adult Low Strength (Aspirin) 81 Mg Tabdr 81 Mg PO DAILY Amlodipine (Amlodipine Besylate) 10 Mg Tab 10 Mg PO DAILY (Nurys Garner) Allergies: Coded Allergies: Darvocet-N 100 (Verified Allergy, Severe, 06/09/16) Active Ordered Medications Inpatient Medications Acetaminophen (Tylenol) 650 mg UNSCH PRN PO for headach, pain, temp > 101F; Start 06/09/16 at 16:45; Status UNV Albumin Human (Albumin 25% Inj) 25 gm UNSCH PRN IV WITH DIALYSIS; Start at 16:45 Clonidine (Catapres) 0.1 mg UNSCH PRN PO for BP > 180/100 X 2 readings; Start 06/09/16 at 16:45; Status UNV Diphenhydramine HCl (Benadryl) 25 mg UNSCH PRN PO for hives/itching/anaphylaxis ; Start 06/09/16 at 16:45; Status UNV Gelatin (Gelfoam 12 Mm/7 Mm Top) 1 foam UNSCH PRN TOP SEE LABEL COMMENTS; Start 06/09/16 at 16:45; Status UNV Gentamicin Sulfate (Gentamicin (Dialysis) Inj) 20 mg UNSCH PRN IV WITH DIALYSIS ; Start 06/09/16 at 16:45 Heparin Sodium (Porcine) (Heparin Inj) UNSCH PRN .XX WITH DIALYSIS; Start at 16:45 Heparin Sodium (Porcine) 8000 units 8,000 units UNSCH PRN IVF WITH DIALYSIS; Start 06/09/16 at 16:45 Mannitol (Mannitol Inj) 12.5 gm UNSCH PRN IV WITH DIALYSIS; Start 06/09/16 at 16:45 Morphine Sulfate (Morphine Inj) 4 mg ONCE ONCE IV PUSH Last administered on t 12:11; Start 06/09/16 at 11:15; Stop 06/09/16 at 11:16; Status DC Naloxone HCl (Narcan Inj) 0.4 mg UNSCH PRN IV SEE LABEL COMMENTS; Start at 16:00 Nitroglycerin (Nitrostat Sl) 0.4 mg UNSCH PRN SL CHEST PAIN; Start 06/09/16 at 16:45; Status UNV Ondansetron HCl (Zofran Inj) 4 mg UNSCH PRN IV WITH DIALYSIS; Start 06/09/16 at 16:45; Status UNV Sodium Chloride (NS 1000 ml Inj) 1,000 ml @ 0 mls/hr Q0M PRN IV WITH DIALYSIS; Start 06/09/16 at 16:42 Sodium Chloride (NS Flush) 5 ml UNSCH PRN IV FLUSH WITH DIALYSIS; Start at 16:45 Active Ordered Medications Current Medications Medications (Trade) Dose Ordered Sig/Merna Route Start Time Stop Time Status Last Admin (NS Flush) 2 ml UNSCH PRN IV FLUSH 06/09/16 16:00 (NS Flush) 2 ml BID IV FLUSH 06/09/16 21:00 06/09/16 22:29 (Tylenol) 650 mg Q4H PRN PO 06/09/16 16:00 (Zofran Inj) 4 mg Q6H PRN IVP 06/09/16 16:00 Naloxone HCl 0.4 mg 0.4 mg UNSCH PRN IV 06/09/16 16:00 (NS 1000 ml Inj) 1,000 ml @ 0 mls/hr Q0M PRN IV 06/09/16 16:42 Heparin Sodium (Porcine) 8000 units 8,000 units UNSCH PRN IVF 06/09/16 16:45 Sodium Chloride 1,000 ml @ 200 mls/hr Q5H PRN IV 06/09/16 16:42 (NS 1000 ml Inj) 1,000 ml @ 0 mls/hr Q0M PRN IV 06/09/16 16:42 (Mannitol Inj) 12.5 gm UNSCH PRN IV 06/09/16 16:45 (Albumin 25% Inj) 25 gm UNSCH PRN IV 06/09/16 16:45 (NS Flush) 5 ml UNSCH PRN IV FLUSH 06/09/16 16:45 (Heparin Inj) UNSCH PRN .XX 06/09/16 16:45 (Gentamicin (Dialysis) Inj) 20 mg UNSCH PRN IV 06/09/16 16:45 (Zofran Inj) 4 mg UNSCH PRN IV 06/09/16 16:45 (Tylenol) 650 mg UNSCH PRN PO 06/09/16 16:45 (Benadryl) 25 mg UNSCH PRN PO 06/09/16 16:45 (Nitrostat Sl) 0.4 mg UNSCH PRN SL 06/09/16 16:45 (Catapres) 0.1 mg UNSCH PRN PO 06/09/16 16:45 (Gelfoam 12 Mm/7 Mm Top) 1 foam UNSCH PRN TOP 06/09/16 16:45 (Morphine Inj) 2 mg Q3H PRN IV PUSH 06/09/16 17:45 06/09/16 22:27 (D50w (Vial) Inj) 25 ml UNSCH PRN IV PUSH 06/09/16 18:00 (Glucagon Inj) 1 mg UNSCH PRN OTHER 06/09/16 18:00 (Norvasc) 10 mg DAILY PO 06/10/16 09:00 (Bumetanide) 2 mg BID PO 06/09/16 21:00 06/09/16 22:28 (Wellbutrin Sr) 150 mg DAILY PO 06/10/16 09:00 (Catapres-Tts 0.2 Mg Patch.7d) 1 patch Q7D T-DERMAL 06/09/16 20:00 (Lexapro) 10 mg DAILY PO 06/10/16 09:00 (Cozaar) 100 mg DAILY PO 06/10/16 09:00 (Zaroxolyn) 5 mg DAILY PO 06/10/16 09:00 (Requip) 2 mg HS PO 06/09/16 21:00 06/09/16 23:01 (Protonix) 20 mg DAILY PO 06/10/16 09:00 (Renvela) 2,400 mg TID PO 06/09/16 18:00 06/09/16 22:42 Miscellaneous Information 1 Q7D T-DERMAL 06/16/16 20:00 Family History Reviewed and noncontributory Social History Lives at home alone has daughter who lives close by and helps often Drinks one beer per week Quit smoking January 2014 Denies illicit drug use Uses walker for ambulation Physical Exam Vital Signs Vital Signs Date Time Temp Pulse Resp B/P Pulse Ox O2 Delivery O2 Flow Rate FiO2 06/10/16 08:04 97.8 73 17 139/63 94 06/10/16 04:00 96.5 80 18 142/59 93 06/10/16 00:00 98.6 67 18 142/67 92 06/09/16 22:32 20 06/09/16 20:00 99.0 73 18 156/69 91 06/09/16 15:10 68 20 157/69 95 Room Air 06/09/16 15:09 18 06/09/16 13:00 67 18 151/68 95 Room Air 06/09/16 11:19 18 97 Room Air 06/09/16 10:59 73 18 140/63 97 Room Air 06/09/16 10:50 18 06/09/16 10:23 98.6 78 20 150/67 97 Room Air Physical Exam GENERAL: patient is alert and oriented. SKIN: Warm and dry. HEAD: Normocephalic. EYES: No scleral icterus. No injection or drainage. NECK: Supple, trachea midline. No JVD or lymphadenopathy. CARDIOVASCULAR: Regular rate and rhythm without murmurs, gallops, or rubs. RESPIRATORY: Breath sounds equal bilaterally. No accessory muscle use. GASTROINTESTINAL: Abdomen soft, non-tender, nondistended. MUSCULOSKELETAL: No cyanosis, or edema. BACK: Nontender without obvious deformity. No CVA tenderness. Laboratory Laboratory Tests Test 06/09/16 06/10/16 11:00 07:28 White Blood Count 9.0 6.5 Red Blood Count 4.16 4.27 Hemoglobin 11.1 11.4 Hematocrit 34.3 35.4 Mean Corpuscular Volume 82.3 82.9 Mean Corpuscular Hemoglobin 26.7 26.6 Mean Corpuscular Hemoglobin 32.4 32.1 Concent Red Cell Distribution Width 18.5 18.3 Platelet Count 180 206 Mean Platelet Volume 10.4 10.5 Neutrophils (%) (Auto) 68.6 59.4 Lymphocytes (%) (Auto) 17.9 26.3 Monocytes (%) (Auto) 11.7 12.5 Eosinophils (%) (Auto) 1.0 1.2 Basophils (%) (Auto) 0.8 0.6 Neutrophils # (Auto) 6.2 3.9 Lymphocytes # (Auto) 1.6 1.7 Monocytes # (Auto) 1.1 0.8 Eosinophils # (Auto) 0.1 0.1 Basophils # (Auto) 0.1 0.0 CBC Comment DIFF FINAL DIFF FINAL Differential Comment Sodium Level 139 Potassium Level 4.7 Chloride Level 101 Carbon Dioxide Level 28.6 Anion Gap 9 Blood Urea Nitrogen 74 Creatinine 5.92 Estimat Glomerular Filtration 8 Rate Random Glucose 163 Calcium Level 8.6 Total Bilirubin 0.3 Aspartate Amino Transf 55 (AST/SGOT) Alanine Aminotransferase 35 (ALT/SGPT) Alkaline Phosphatase 270 Total Protein 7.3 Albumin 2.7 Lipase 81 Result Diagram: 06/10/16 0728 06/09/16 1100 Assessment and Plan Problem List: (1) ESRD (end stage renal disease) Plan: Dialysis will be continued MWF. Dialyzed yesterday. Monitor electrolytes and fluid status. Avoid Gadolinium. (2) Right upper quadrant pain Plan: Surgery has been consulted. Due to portal vein thrombosis? Has history of liver lesions. Also appears to have gall stones. (3) Type 2 diabetes mellitus Plan: insulin coverage as needed. Maintain blood glucose between 140 and 180. (4) Hypertension Plan: BP is acceptable. (5) Anemia Plan: Hemoglobin is acceptable. (6) Metabolic bone disease Plan: Monitor phosphorus periodically. Continue binders as needed. Assessment and Plan Thanks for the consult. Jhon Vallecillo MD Jun 10, 2016 08:45
[2016-06-10] MEDS: SODIUM CHLORIDE 0.9% FLUSH 10 ML FLUSH IV FLUSH SCH ×2 (09:00→21:00)
[2016-06-10] MEDS: PANTOPRAZOLE SOD 20 MG DELAYED RELEASE TAB PO SCH (09:58)
[2016-06-10] MEDS: buPROPion HCL 150 MG SUSTAINED RELEASE TAB PO SCH (09:58)
[2016-06-10] MEDS: LOSARTAN 50 MG TAB PO SCH (09:58)
[2016-06-10] MEDS: METOLAZONE 5 MG TAB PO SCH (09:59)
[2016-06-10] MEDS: ESCITALOPRAM OXALATE 10 MG TAB PO SCH (09:59)
[2016-06-10] MEDS: BUMETANIDE 1 MG TAB PO SCH ×2 (10:00→21:03)
[2016-06-10] MEDS: SEVELAMER CARBONATE 800 MG TAB PO SCH ×3 (10:00→16:57)
--- NOTE | 2016-06-10 12:45 | HHI.PR ---
Subjective Remarks 75yr old AAF seen and examined today. Still with pain in RUQ. No NVD/fever. No CP/SOB. Family in room. Objective Objective Results - Vital Signs Date Time Temp Pulse Resp B/P Pulse Ox O2 Delivery O2 Flow Rate FiO2 06/10/16 12:05 97.5 73 18 120/61 97 06/10/16 11:33 95 21 06/10/16 08:04 97.8 73 17 139/63 94 06/10/16 04:00 96.5 80 18 142/59 93 06/10/16 00:00 98.6 67 18 142/67 92 06/09/16 22:32 20 06/09/16 20:00 99.0 73 18 156/69 91 06/09/16 15:10 68 20 157/69 95 Room Air 06/09/16 15:09 18 06/09/16 13:00 67 18 151/68 95 Room Air I/O 06/09/16 06/09/16 06/09/16 06/10/16 06/10/16 06/10/16 07:00 15:00 23:00 07:00 15:00 23:00 Intake Total 800 ml 0 ml Output Total 2000 ml Balance -1200 ml 0 ml Intake IV Total 800 ml 0 ml Output Hemodialysis 2000 ml # Voids 3 Result Diagram: 06/10/1672706/10/16727 Imaging Last Impressions Abdomen/Pelvis CT 06/09/16 0000 Signed Impressions: Service Date/Time: Thursday, June 09, 2016 14:28 - CONCLUSION: 1. Small calcified gallstones with no wall thickening or inflammatory change. 2. Mild diverticulosis with no inflammatory change or obstruction. 3. No renal calculi or hydronephrosis Jani Delgado MD Other Results Laboratory Tests Test 06/10/16 07:28 White Blood Count 6.5 Red Blood Count 4.27 Hemoglobin 11.4 Hematocrit 35.4 Mean Corpuscular Volume 82.9 Mean Corpuscular Hemoglobin 26.6 Mean Corpuscular Hemoglobin 32.1 Concent Red Cell Distribution Width 18.3 Platelet Count 206 Mean Platelet Volume 10.5 Neutrophils (%) (Auto) 59.4 Lymphocytes (%) (Auto) 26.3 Monocytes (%) (Auto) 12.5 Eosinophils (%) (Auto) 1.2 Basophils (%) (Auto) 0.6 Neutrophils # (Auto) 3.9 Lymphocytes # (Auto) 1.7 Monocytes # (Auto) 0.8 Eosinophils # (Auto) 0.1 Basophils # (Auto) 0.0 CBC Comment DIFF FINAL Differential Comment Sodium Level 140 Potassium Level 4.3 Chloride Level 101 Carbon Dioxide Level 29.3 Anion Gap 10 Blood Urea Nitrogen 48 Creatinine 4.43 Estimat Glomerular Filtration 12 Rate Random Glucose 138 Calcium Level 9.0 Total Bilirubin 0.4 Aspartate Amino Transf 43 (AST/SGOT) Alanine Aminotransferase 31 (ALT/SGPT) Alkaline Phosphatase 243 Total Protein 7.5 Albumin 2.6 ROS General: No: Fatigue, Weakness, Other HEENT: No: Sore Throat, Dysphagia, Other Cardiac: No: Chest Pain, Edema, Palpitations, Other Pulmonary: No: Cough, SOB, Wheezing, Other GI: Abdominal Pain /JAILOR: No: Dysuria, Urgency, Other Neuro/MS: No: Lightheaded, Confusion, Other Psych: No: Anxiety, Depression, Other Skin: No: Itching, Rash, Other Physical Exam Physical Exam PHYSICAL EXAMINATION GENERAL: This is a well-developed, well-nourished female who appears to be in no acute distress. She is alert and awake. HEAD: Normocephalic without any lesion or mass noted. . EYES: Perrla, Normal eye movement, no icterus. OROPHARYNGEAL: Oropharynx without erythema or edema. MOUTH/THROAT: Oral mucosa moist. NECK: Supple. Trachea midline without deviation. CARDIAC: Regular rhythm, regular rate, S1 and S2 are heard. LUNGS: Clear to auscultation bilaterally. ABDOMEN: Soft, RUQ tenderness Bowel sounds are heard in all four quadrants. No rebound. No guarding. EXTREMITIES: No CCE. NEUROLOGICAL: Patient mood and affect appropriate. SKIN:Warm and moist PSYCH: Mood and affect appropriate A/P Assessment and Plan 75-year-old elderly black female presented to the emergency room with right upper quadrant pain radiating to back, associated with nausea, vomiting, anorexia, weight loss. History of gallstones and liver lesions, currently undergoing workup. 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 In addition to echogenic masses were noted in the liver. -Appreciate Gen. surgery ,Dr. Matamoros's input. --Morphine 2 mg IV push every 4 as needed for pain -Hold surgery till evaluated by GI/oncology. Liver masses, possible malignancy. Check tumor markers: CA 19-9, CEA, CA 125. Request CT abd/pelvis with contrast: co-ordinate with her dialysis. Consult GI: Dr. La: discussed with Dr. La. Consult oncology. 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 -Discussed with Dr. Vallecillo and Dr. La. Start patient on heparin. Monitor closely. End-stage renal disease, on dialysis Sunday and Sunday Appreciate nephro input. Hypertension, stable Continue home medication Type 2 diabetes Accu-Cheks before meals and at bedtime with insulin therapy SCDs for DVT prophylaxis Omeprazole for GI prophylaxis AM labs. DW patient/family/RN. Mario Alberto Zuleta MD Jun 10, 2016 12:45
[2016-06-10] MEDS: HEPARIN SODIUM - SQ 10,000 UNITS/ML VIAL SQ SCH ×2 (14:32→21:03)
--- NOTE | 2016-06-10 16:47 | PD.CONS ---
HPI History of Present Illness This is a 75 year old female who presents to the ER for RUQ abdominal pain. Reports abdominal pain has been present for past 5 days, pain is constantly present and varies from "just feeling sore" to severe pain 10/10. Pain radiates to right side of her back. Not associated with eating. Reports decreased appetite and weight loss of about 9-10 lbs in one month. Has had intermittent nausea and vomiting, but reports she has not vomited in past 2 days. Denies diarrhea or constipation, no blood in stool. PMH significant for hypertension, hyperlipidemia, CHF, CVA, COPD, DM, ESRD (dialysis M, W, F), history of Cdiff colitis, Hep C. Patient reports that she has appointment next week to see Dr. Mendes for possible chemotherapy or radiation related to her hepatic lesions (she has been told that these could possibly be cancer). Patient also reports that she was told she has gallstones by Dr. Barron. (Renetta Flaherty) PFSH Past Medical History -Arthritis -Depression -HTN -CHF -HLD -CAD -DM -ESRD (dialysis M,W,F) -GERD -Hep C -History of C diff colitis -CVA -COPD Past Surgical History -Bilateral cataract removal -Hysterectomy -Tonsillectomy -Dialysis catheter insertion (Renetta Flaherty) Coded Allergies: Darvocet-N 100 (Verified Allergy, Severe, 06/09/16) Medications Current Medications Medications (Trade) Dose Ordered Sig/Merna Route PRN Reason Start Time Stop Time Status Last Admin Dose Admin Sodium Chloride (NS Flush) 2 ml UNSCH PRN IV FLUSH FLUSH AFTER USING IV ACCESS 06/09/16 16:00 Sodium Chloride (NS Flush) 2 ml BID IV FLUSH 06/09/16 21:00 06/10/16 09:00 Acetaminophen (Tylenol) 650 mg Q4H PRN PO TEMP > 100.4 06/09/16 16:00 Ondansetron HCl (Zofran Inj) 4 mg Q6H PRN IVP NAUSEA OR VOMITING 06/09/16 16:00 Naloxone HCl 0.4 mg 0.4 mg UNSCH PRN IV SEE LABEL COMMENTS 06/09/16 16:00 Sodium Chloride (NS 1000 ml Inj) 1,000 ml @ 0 mls/hr Q0M PRN IV For Prime & Rinse Back 06/09/16 16:42 Heparin Sodium (Porcine) 8000 units 8,000 units UNSCH PRN IVF WITH DIALYSIS 06/09/16 16:45 Sodium Chloride 1,000 ml @ 200 mls/hr Q5H PRN IV WITH DIALYSIS 06/09/16 16:42 Sodium Chloride (NS 1000 ml Inj) 1,000 ml @ 0 mls/hr Q0M PRN IV WITH DIALYSIS 06/09/16 16:42 Mannitol (Mannitol Inj) 12.5 gm UNSCH PRN IV WITH DIALYSIS 06/09/16 16:45 Albumin Human (Albumin 25% Inj) 25 gm UNSCH PRN IV WITH DIALYSIS 06/09/16 16:45 Sodium Chloride (NS Flush) 5 ml UNSCH PRN IV FLUSH WITH DIALYSIS 06/09/16 16:45 Heparin Sodium (Porcine) (Heparin Inj) UNSCH PRN .XX WITH DIALYSIS 06/09/16 16:45 Gentamicin Sulfate (Gentamicin (Dialysis) Inj) 20 mg UNSCH PRN IV WITH DIALYSIS 06/09/16 16:45 Ondansetron HCl (Zofran Inj) 4 mg UNSCH PRN IV WITH DIALYSIS 06/09/16 16:45 Acetaminophen (Tylenol) 650 mg UNSCH PRN PO for headach, pain, temp > 101F 06/09/16 16:45 Diphenhydramine HCl (Benadryl) 25 mg UNSCH PRN PO for hives/itching/anaphylaxis 06/09/16 16:45 Nitroglycerin (Nitrostat Sl) 0.4 mg UNSCH PRN SL CHEST PAIN 06/09/16 16:45 Clonidine (Catapres) 0.1 mg UNSCH PRN PO for BP > 180/100 X 2 readings 06/09/16 16:45 Gelatin (Gelfoam 12 Mm/7 Mm Top) 1 foam UNSCH PRN TOP SEE LABEL COMMENTS 06/09/16 16:45 Morphine Sulfate (Morphine Inj) 2 mg Q3H PRN IV PUSH pain 5 to 10 06/09/16 17:45 06/09/16 22:27 Dextrose (D50w (Vial) Inj) 25 ml UNSCH PRN IV PUSH HYPOGLYCEMIA-SEE COMMENTS 06/09/16 18:00 Glucagon (Glucagon Inj) 1 mg UNSCH PRN OTHER HYPOGLYCEMIA-SEE COMMENTS 06/09/16 18:00 Amlodipine Besylate (Norvasc) 10 mg DAILY PO 06/10/16 09:00 06/10/16 09:59 Bumetanide (Bumetanide) 2 mg BID PO 06/09/16 21:00 06/10/16 10:00 Bupropion HCl (Wellbutrin Sr) 150 mg DAILY PO 06/10/16 09:00 06/10/16 09:58 Clonidine (Catapres-Tts 0.2 Mg Patch.7d) 1 patch Q7D T-DERMAL 06/09/16 20:00 Escitalopram Oxalate (Lexapro) 10 mg DAILY PO 06/10/16 09:00 06/10/16 09:59 Losartan Potassium (Cozaar) 100 mg DAILY PO 06/10/16 09:00 06/10/16 09:58 Metolazone (Zaroxolyn) 5 mg DAILY PO 06/10/16 09:00 06/10/16 09:59 Ropinirole HCl (Requip) 2 mg HS PO 06/09/16 21:00 06/09/16 23:01 Pantoprazole Sodium (Protonix) 20 mg DAILY PO 06/10/16 09:00 06/10/16 09:58 Sevelamer Carbonate (Renvela) 2,400 mg TID PO 06/09/16 18:00 06/10/16 14:32 Miscellaneous Information 1 Q7D T-DERMAL 06/16/16 20:00 Heparin Sodium (Porcine) (Heparin Inj) 5,000 units Q12HR SQ 06/10/16 14:00 06/10/16 14:32 Family History -No pertinent family history Social History -Lives at home alone (has daughter who lives close by and helps her out) -ETOH: 1 beer per week -Tobacco: Quit smoking Jan 2014 -Illicit Drugs: Denies (Renetta Flaherty) Review of Systems Constitutional: COMPLAINS OF: Change in appetite, DENIES: Diaphoretic episodes , Fatigue, Fever, Weight gain, Weight loss, Chills, Dizziness, Night Sweats Endocrine: DENIES: Polydipsia, Polyuria Eyes: DENIES: Blurred vision, Photosensitivity, Double Vision Ears, nose, mouth, throat: DENIES: Hearing loss, Vertigo, Oral lesions, Throat pain, Hoarseness Respiratory: DENIES: Cough, Wheezing, Hemoptysis, Sputum production, Shortness of breath Cardiovascular: DENIES: Chest pain, Palpitations, Syncope, Lower Extremity Edema, Orthopnea, Claudication Gastrointestinal: COMPLAINS OF: Abdominal pain, Nausea, Vomiting, DENIES: Black stools, Bloody stools, Constipation, Diarrhea, Difficulty Swallowing, Anorexia, Odynophagia, Swelling of Abdomen, Heartburn, Hematemesis Genitourinary: DENIES: Urinary frequency, Urinary incontinence, Urgency, Hematuria, Dysuria, Nocturia Musculoskeletal: DENIES: Joint pain, Muscle aches, Stiffness, Joint Swelling, Back pain, Neck pain Integumentary: DENIES: Abnormal pigmentation, Nail changes, Pruritus, Rash, Jaundice Hematologic/lymphatic: DENIES: Bruising, Lymphadenopathy Immunologic/allergic: DENIES: Eczema, Urticaria Neurologic: DENIES: Abnormal gait, Headache, Localized weakness, Paresthesias Psychiatric: DENIES: Anxiety, Confusion, Mood changes, Depression, Agitation, Suicidal Ideation (Renetta Flaherty) GI Exam Vitals I&O Vital Signs Date Time Temp Pulse Resp B/P Pulse Ox O2 Delivery O2 Flow Rate FiO2 06/10/16 12:05 97.5 73 18 120/61 97 06/10/16 11:33 95 21 06/10/16 08:04 97.8 73 17 139/63 94 06/10/16 04:00 96.5 80 18 142/59 93 06/10/16 00:00 98.6 67 18 142/67 92 06/09/16 22:32 20 06/09/16 20:00 99.0 73 18 156/69 91 I/O 06/09/16 06/09/16 06/09/16 06/10/16 06/10/16 06/10/16 07:00 15:00 23:00 07:00 15:00 23:00 Intake Total 800 ml 0 ml Output Total 2000 ml Balance -1200 ml 0 ml Intake IV Total 800 ml 0 ml Output Hemodialysis 2000 ml # Voids 3 Imaging Last Impressions Gall Bladder Ultrasound 06/09/16 0000 Signed Impressions: Service Date/Time: Thursday, June 09, 2016 11:27 - CONCLUSION: Abnormal ultrasound as described above. CT scan with IV contrast is suggested. Remberto Can MD FACR Abdomen/Pelvis CT 06/09/16 0000 Signed Impressions: Service Date/Time: Thursday, June 09, 2016 14:28 - CONCLUSION: 1. Small calcified gallstones with no wall thickening or inflammatory change. 2. Mild diverticulosis with no inflammatory change or obstruction. 3. No renal calculi or hydronephrosis Jani Delgado MD Laboratory Test 06/10/16 07:28 White Blood Count 6.5 TH/MM3 Red Blood Count 4.27 MIL/MM3 Hemoglobin 11.4 GM/DL Hematocrit 35.4 % Mean Corpuscular Volume 82.9 FL Mean Corpuscular Hemoglobin 26.6 PG Mean Corpuscular Hemoglobin 32.1 % Concent Red Cell Distribution Width 18.3 % Platelet Count 206 TH/MM3 Mean Platelet Volume 10.5 FL Neutrophils (%) (Auto) 59.4 % Lymphocytes (%) (Auto) 26.3 % Monocytes (%) (Auto) 12.5 % Eosinophils (%) (Auto) 1.2 % Basophils (%) (Auto) 0.6 % Neutrophils # (Auto) 3.9 TH/MM3 Lymphocytes # (Auto) 1.7 TH/MM3 Monocytes # (Auto) 0.8 TH/MM3 Eosinophils # (Auto) 0.1 TH/MM3 Basophils # (Auto) 0.0 TH/MM3 CBC Comment DIFF FINAL Differential Comment Sodium Level 140 MEQ/L Potassium Level 4.3 MEQ/L Chloride Level 101 MEQ/L Carbon Dioxide Level 29.3 MEQ/L Anion Gap 10 MEQ/L Blood Urea Nitrogen 48 MG/DL Creatinine 4.43 MG/DL Estimat Glomerular Filtration 12 ML/MIN Rate Random Glucose 138 MG/DL Calcium Level 9.0 MG/DL Total Bilirubin 0.4 MG/DL Aspartate Amino Transf 43 U/L (AST/SGOT) Alanine Aminotransferase 31 U/L (ALT/SGPT) Alkaline Phosphatase 243 U/L Total Protein 7.5 GM/DL Albumin 2.6 GM/DL Physical Examination HEENT: PERRLA; normocephalic; atraumatic; no jaundice. Throat is clear. NECK: Neck is supple, no JVD, no lymphadenopathy. CHEST: CTA CARDIAC: RRR with no murmur gallop or rubs. R arm AV fistula with positive bruit and thrill ABDOMEN: Soft, nondistended, RUQ tenderness on palpation; no hepatosplenomegaly ; bowel sounds are present x 4 quadrants EXTREMITIES: No clubbing, cyanosis, or edema. SKIN: Normal; no rash; no jaundice. RADIO REPAIRER DOMESTIC: No focal deficits; A & O x 3. (Renetta Flaherty) Assessment and Plan Plan ASSESSMENT: -Liver masses, possible malignancy: Patient currently undergoing workup by GI. She has been referred to oncology, Dr. Mendes (outpatient) who she reports she has an appointment with next week. Gall Bladder Ultrasound 06/09--Enlarged liver with nonocclusive thrombus in portal vein, gallstones with thickened gallbladder. Echogenic masses were noted in the liver. Abdomen/Pelvis CT --1. Small calcified gallstones with no wall thickening or inflammatory change. 2. Mild diverticulosis with no inflammatory change or obstruction. 3. No renal calculi or hydronephrosis. Tumor markers CA 19-9, CEA, CA 125 ordered. Oncology consulted. Portal vein thrombosis most likely associated with liver malignancy with hypercoagulable state. Patient started on Heparin. AST 43, ALT 31, ALK Phos 243 -ESRD: Dialysis M, W, F. BUN 48, Cr 4.43 -Hypertension: Per primary. Stable. -DM, type 2. Per Primary PLAN: -CT Abdomen/Pelvis with Contrast -Continue Heparin -PPI -Supportive care -Awaiting oncology consult -Tumor marker ordered per primary, await results -Monitor labs -Further recommendations to follow based on results of above. Patient seen and examined by Dr. La and myself and this note is written on his behalf. (Renetta Flaherty) Physician Comments Patient seen and examined Agree with above Continue with current supportive care Monitor labs Will order tumor markers We'll await CT of the abdomen with contrast We'll await oncology evaluation (Miles La MD) Renetta Flaherty Jun 10, 2016 16:47 Miles La MD Jun 10, 2016 17:46
[2016-06-10] MEDS: ACETAMINOPHEN/HYDROcodone 325 MG/5 MG TAB PO PRN (16:57)
--- NOTE | 2016-06-10 21:11 | MB ---
cc: SNEHAL PICKARD MD DATE OF CONSULTATION 06/10/16 REASON FOR CONSULTATION Consult requested by Dr. Zuleta for evaluation of portal vein thrombosis and possible liver masses. HISTORY OF PRESENT ILLNESS Hattie is a 75-year-old female. She is a very poor historian. History is obtained through review of the records. The patient has end-stage renal disease and she is on hemodialysis three times a week. She also has a history of hypertension, hypercholesterolemia, CVA, type 2 diabetes mellitus. The patient recently had developed abdominal pain, anorexia and weight loss. She was evaluated by Dr. Mota, child care sitter. She underwent workup which showed liver masses, possible malignancy. She was referred to Dr. Mendes. The patient has an appointment with Dr. Mendes next week . This will be her first visit with him. The patient has not had a liver biopsy or anything done as yet. She stated that Dr. Mendes will review her records and will order the biopsy if needed. The patient came into the hospital complaining of right-sided abdominal pain. She is admitted to the hospital. She had a gallbladder ultrasound which showed the liver is enlarged with the clot identified in the portal vein. Two echogenic masses are seen in the liver as well. She had a CT of the abdomen and pelvis without contrast which did not show any liver masses. The liver is homogeneous, no dilatation noted. Small calcified gallstones are noted. CT of the abdomen with IV contrast has been ordered but has not been done as yet. The patient has been complaining of abdominal pain, mostly on the right side. GI has been consulted. They have ordered the tumor markers and all these are still pending. PAST MEDICAL HISTORY 1. Depression, 2. Hypertension, 3. Congestive heart failure, 4. Hyperlipidemia, 5. Coronary artery disease, 6. Diabetes mellitus, 7. End-stage renal disease, 8. Gastroesophageal reflux disease, 9. Hepatitis C 10. CVA, 11. COPD, 12. Arthritis. PAST SURGICAL HISTORY 1. Bilateral cataract 2. Hysterectomy, 3. Tonsillectomy 4. Dialysis catheter. ALLERGIES DARVOCET MEDICATIONS Please see EMR FAMILY HISTORY Noncontributory. SOCIAL HISTORY Does not smoke cigarettes anymore, quit in 2013. Occasionally drinks alcohol. PHYSICAL EXAMINATION GENERAL: A well-developed elderly -[place] female in no apparent distress. VITAL SIGNS: Temperature 98.6, heart rate 72, blood pressure 132/62. HEENT: PERRLA, extraocular movements are intact, anicteric. No oral lesions noted. NECK: Supple. LYMPHS: There is no cervical, supraclavicular, axillary lymphadenopathy noted. LUNGS: Clear. No wheezing, rhonchi or rales. HEART: Regular rate and rhythm. ABDOMEN: Soft, nontender. No hepatosplenomegaly. EXTREMITIES: No pedal edema. NEUROLOGIC: Awake, alert, oriented times threes SKIN: No significant lesions noted. ASSESSMENT 1. Portal vein thrombosis most likely hypercoagulable state from malignancy. 2. Liver masses noted as per history. The ultrasound did show liver masses, but the CT of the abdomen and pelvis without contrast does not show any liver masses. PLAN I have reviewed her available records and I have discussed with the patient regarding the portal vein thrombosis. This is hypercoagulable state from malignancy. The patient has been on heparin which is an appropriate anticoagulant. After that, heparin will be transitioned into Coumadin. The patient was found to have liver masses. The tumor markers have been ordered. Those results are still pending. She is scheduled to have a CT of the abdomen and pelvis with IV contrast. Depending on that report, we will decide about the biopsy. We will consult interventional radiologist for possible liver mass biopsy to obtain tissue diagnosis. Further recommendations to follow based on the hospital stay. Thank you for asking my opinion. Derick Pickard MD / /8:38 PM /8:47 PM
--- NOTE | 2016-06-10 22:41 | MB ---
cc: EDWARDOSWALDO DATE OF CONSULTATION 06/10/[address] Santi Obrien REASON FOR CONSULTATION Cholecystitis. HISTORY OF PRESENT ILLNESS The patient is a 75-year-old female with past medical history of hypertension, hyperlipidemia, diabetes, end-stage renal disease, previous CVA. The patient presented to the emergency department with right upper quadrant pain for approximately 4 days. The pain was epigastric and is a "band-like" pain around the right upper abdomen. She has had similar pain before but not this bad. Upon evaluation the patient was noted to have elevated transaminases and also imaging with calcified gallstones with no wall thickening or inflammatory changes. The patient also of note is being worked up for possible liver lesions in the liver which also is potential source of the patient's symptoms. The patient was admitted to the medical service for evaluation for possible cholecystitis. REVIEW OF SYSTEMS 12 point review of systems discussed with the patient and is negative except for pertinent positives mentioned above in the history of present illness. PAST MEDICAL HISTORY As above. PAST SURGICAL HISTORY Cataract surgery, hysterectomy, dialysis catheter. MEDICATIONS 1. Aspirin. 2. Amlodipine. 3. Atorvastatin. 4. Bumetanide. 5. Clonidine. 6. Wellbutrin. 7. Lexapro. 8. Pepcid. 9. Insulin. 10. Tramadol. SOCIAL HISTORY The patient denies alcohol, tobacco or illicit drug use. FAMILY HISTORY Noncontributory. PHYSICAL EXAMINATION VITAL SIGNS: Blood pressure 157/69, pulse 68, respiratory rate 20, O2 saturation 95%. GENERAL: The patient is a chronically ill appearing female in no acute distress. HEAD: Head is normocephalic, atraumatic. Pupils are round, reactive to accommodation and light. Sclera is nonicteric. LUNGS: Breath sounds present bilaterally. Nonlabored breathing pattern. HEART: Regular rate and rhythm. ABDOMEN: Abdomen is soft, nondistended. Subjective tenderness in the right upper quadrant without Patterson's sign without peritonitis or rebound. No ascites. No megaly. EXTREMITIES: Chronic edema. BACK: No CVA tenderness. NEUROLOGIC: The patient is awake, alert and oriented x3. Nonfocal. Cranial II-XII are grossly intact. ASSESSMENT/PLAN The patient is a 75-year-old female who has right upper quadrant pain, mild gallbladder wall thickening with gallstones without evidence of acute cholecystitis. The patient also has liver lesions of unknown etiology as well as portal vein thrombosis. I agree with current management and nonoperative management for evaluation and further workup of likely malignancy. I do not feel the patient has an acute surgical process at this time and that likely has more of a chronic cholecystitis and likely symptomatic malignancy, likely GI primary. We will follow along with the patient. Endoscopy and/or EUS may be helpful in identifying a primary site. Thank you very much for this consultation, will follow. Oswaldo Matamoros MD AWG/ADELA /10:02 PM /10:15 PM MTDIsac
[2016-06-11] VITALS (8 sets, daily range): BP systolic 121–153; BP diastolic 54–68; PULSE 63–74; RESP 17–20; TEMP 96–98.4; O2SAT 95–98
[2016-06-11] MEDS: INSULIN ASPART SUPPLEMENTAL SCALE SQ SCH ×4 (06:13→20:42)
[2016-06-11 07:37] LABS: MEAN CELL VOLUME 83.2 FL (80.0-100.0); MEAN CORPUSCULAR HEMOGLOBIN 26.1 PG (27.0-34.0); MEAN CORPUSCULAR HGB CONC 31.4 % (32.0-36.0); PLATELET COUNT 180 TH/MM3 (150-450); RED BLOOD COUNT 4.33 MIL/MM3 (4.00-5.30); RED CELL DISTRIBUTION WIDTH 18.3 % (11.6-17.2); REVIEW FLAG FINAL; WHITE BLOOD COUNT 7.7 TH/MM3 (4.0-11.0)
[2016-06-11 07:57] LABS: ALKALINE PHOSPHATASE 227 U/L (45-117); ALT (GPT) 26 U/L (10-53); ANION GAP 11 MEQ/L (5-15); AST (GOT) 37 U/L (15-37); BLOOD UREA NITROGEN 68 MG/DL (7-18); CHLORIDE 98 MEQ/L (98-107); GLOMERULAR FILTRATION RATE 9 ML/MIN (>89); POTASSIUM 4.2 MEQ/L (3.5-5.1); SODIUM (NA) 138 MEQ/L (136-145); TOTAL BILIRUBIN ADULT 0.4 MG/DL (0.2-1.0)
[2016-06-11] MEDS ORDERED: DIATRIZOATE MEGLUM/DIATRIZOATE SOD 9 ML CUP PO ONE (09:45)
--- NOTE | 2016-06-11 09:46 | HHI.NPPN ---
Subjective Interval History All the notes were reviewed. Discussed with patient and her daughter. Review of Systems General Constitutional: Fatigue, Weight Change Gastrointestinal Gastrointestinal: Abdominal Pain Objective Data Data 06/10/16 06/11/16 19:00 07:00 Intake Total 480 ml Balance 480 ml Intake Oral 480 ml # Voids 5 1 # Bowel Movements 0 Vital Signs Date Time Temp Pulse Resp B/P Pulse Ox O2 Delivery O2 Flow Rate FiO2 06/11/16 08:08 97.6 67 17 148/65 96 06/11/16 04:41 96.5 68 18 153/62 98 06/11/16 00:13 97.4 63 18 121/54 97 06/10/16 20:00 98.6 72 20 132/62 94 06/10/16 18:01 96 21 06/10/16 17:00 96.8 76 18 133/61 96 06/10/16 12:05 97.5 73 18 120/61 97 06/10/16 11:33 95 21 -: 06/11/16 0605 06/11/16 0605 Physical Exam General Appearance: Well Developed, Malnourished Throat Throat Exam: Oral Mucosa [place] & Moist Neck Neck Exam: Neck Supple Pulmonary Resp Exam: Clear Bilaterally, Breath Sounds Equal, No Distress Cardiology CV Exam: Regular, Normal Sinus Rhythm Gastrointestinal/Abdomen GI Exam: Soft, Non-Tender, Bowel Sounds Present Genitourinary Exam: Clear Urine Musculoskeletal MS Exam: Joints Intact Integumentary Skin Exam: Intact Extremeties Extremities Exam: No Edema Neurologic Neuro Exam: Alert, Awake, Oriented, Moving All Extremities Assessment/Plan Problem List: (1) ESRD (end stage renal disease) Plan: Dialysis will be continued MWF. Monitor electrolytes and fluid status. Avoid Gadolinium. (2) Right upper quadrant pain Plan: Surgery has been consulted. Due to portal vein thrombosis? Has history of liver lesions. Not yet on anticoagulation. Oncology on the case. Tumor markers ordered. GI has been consulted. (3) Type 2 diabetes mellitus Plan: insulin coverage as needed. Maintain blood glucose between 140 and 180. (4) Hypertension Plan: BP is acceptable. (5) Anemia Plan: Hemoglobin is acceptable. (6) Metabolic bone disease Plan: Monitor phosphorus periodically. Continue Renvela. Jhon Vallecillo MD Jun 11, 2016 09:46
--- NOTE | 2016-06-11 10:31 | PD.ONC.PN ---
Subjective Subjective Remarks Afebrile overnight. Patient resting comfortably. Has some pain in abdomen. Anxious about masses in abdomen and the possibility she could have cancer. Objective Data Date Time Temp Pulse Resp B/P Pulse Ox O2 Delivery O2 Flow Rate FiO2 06/11/16 08:08 97.6 67 17 148/65 96 06/11/16 04:41 96.5 68 18 153/62 98 06/11/16 00:13 97.4 63 18 121/54 97 06/10/16 20:00 98.6 72 20 132/62 94 06/10/16 18:01 96 21 06/10/16 17:00 96.8 76 18 133/61 96 06/10/16 12:05 97.5 73 18 120/61 97 06/10/16 11:33 95 21 Result Diagram: 06/11/1660406/11/16604 Laboratory Results Laboratory Tests Test 06/10/16 06/11/16 20:10 06:05 Tumor Marker Alpha Fetoprotein 9950.8 NG/ML Carcinoembryonic Antigen 1.5 NG/ML CA 19-9 Antigen 54.9 U/ML CA 125 Antigen 5.1 U/ML White Blood Count 7.7 TH/MM3 Red Blood Count 4.33 MIL/MM3 Hemoglobin 11.3 GM/DL Hematocrit 36.0 % Mean Corpuscular Volume 83.2 FL Mean Corpuscular Hemoglobin 26.1 PG Mean Corpuscular Hemoglobin 31.4 % Concent Red Cell Distribution Width 18.3 % Platelet Count 180 TH/MM3 Mean Platelet Volume 11.3 FL Sodium Level 138 MEQ/L Potassium Level 4.2 MEQ/L Chloride Level 98 MEQ/L Carbon Dioxide Level 29.0 MEQ/L Anion Gap 11 MEQ/L Blood Urea Nitrogen 68 MG/DL Creatinine 5.66 MG/DL Estimat Glomerular Filtration 9 ML/MIN Rate Random Glucose 145 MG/DL Calcium Level 8.6 MG/DL Phosphorus Level 5.6 MG/DL Total Bilirubin 0.4 MG/DL Aspartate Amino Transf 37 U/L (AST/SGOT) Alanine Aminotransferase 26 U/L (ALT/SGPT) Alkaline Phosphatase 227 U/L Total Protein 7.4 GM/DL Albumin 2.6 GM/DL Administered Medications Medications (Trade) Dose Ordered Sig/Merna Route PRN Reason Start Time Stop Time Status Last Admin Dose Admin Sodium Chloride (NS Flush) 2 ml BID IV FLUSH 06/09/16 21:00 06/10/16 09:00 Morphine Sulfate (Morphine Inj) 2 mg Q3H PRN IV PUSH pain 5 to 10 06/09/16 17:45 06/09/16 22:27 Amlodipine Besylate (Norvasc) 10 mg DAILY PO 06/10/16 09:00 06/10/16 09:59 Bumetanide (Bumetanide) 2 mg BID PO 06/09/16 21:00 06/10/16 21:03 Bupropion HCl (Wellbutrin Sr) 150 mg DAILY PO 06/10/16 09:00 06/10/16 09:58 Escitalopram Oxalate (Lexapro) 10 mg DAILY PO 06/10/16 09:00 06/10/16 09:59 Losartan Potassium (Cozaar) 100 mg DAILY PO 06/10/16 09:00 06/10/16 09:58 Metolazone (Zaroxolyn) 5 mg DAILY PO 06/10/16 09:00 06/10/16 09:59 Ropinirole HCl (Requip) 2 mg HS PO 06/09/16 21:00 06/10/16 21:03 Pantoprazole Sodium (Protonix) 20 mg DAILY PO 06/10/16 09:00 06/10/16 09:58 Sevelamer Carbonate (Renvela) 2,400 mg TID PO 06/09/16 18:00 06/10/16 16:57 Heparin Sodium (Porcine) (Heparin Inj) 5,000 units Q12HR SQ 06/10/16 14:00 06/10/16 21:03 Acetaminophen/ Hydrocodone Bitart ([place] 5-325 Mg) 1 tab Q6H PRN PO PAIN SCALE 5 TO 10 06/10/16 16:30 06/10/16 16:57 Objective Remarks GENERAL: Pleasant elderly female, sitting up in bed watching TV SKIN: Warm and dry. HEAD: Normocephalic. EYES: No injection or drainage. NECK: Supple, trachea midline. CARDIOVASCULAR: Regular rate and rhythm RESPIRATORY: Breath sounds equal bilaterally. No accessory muscle use. GASTROINTESTINAL: Abdomen soft, non-tender, nondistended. EXTREMITIES: No cyanosis NEUROLOGICAL: awake and alert, normal speech. able to move extremities. Assessment/Plan Problem List: (1) Liver masses Status: Acute Plan: 06/11: await CT ab/pelvis with IV contrast. --gallbladder ultrasound showed the liver is enlarged with the clot identified in the portal vein. Two echogenic masses are seen in the liver as well. --CT abdomen and pelvis without contrast which did not show any liver masses. The liver is homogeneous, no dilatation noted. Small calcified gallstones are noted. --AFP significantly elevated --CA 19-9 slightly elevated --will consult interventional radiologist for possible liver mass biopsy to obtain tissue diagnosis. (2) Portal vein thrombosis Status: Acute Plan: --06/11: START heparin drip today. will start coumadin after biopsy complete. Assessment 75y/o with portal vein thrombosis and possible liver masses. --end-stage renal disease (HD MWF) --history of hypertension, hypercholesterolemia, CVA, type 2 diabetes mellitus. --h/o Congestive heart failure, Coronary artery disease, Hepatitis C, COPD, Attending Statement no new c/o CT A/P with contrast = mult liver masses. AFP is apprx 10K. This is c/w multifocal HCC. Consult IR for liver mass bx. The exam, history, and the medical decision-making described in the above note were completed with the assistance of the mid-level provider. I reviewed and agree with the findings presented. I attest that I had a [id number] encounter with the patient on the same day, and personally performed and documented my assessment and findings in the medical record. Celia Busby Jun 11, 2016 10:31 Giancarlo Pickard MD Jun 11, 2016 22:56
[2016-06-11] MEDS: ESCITALOPRAM OXALATE 10 MG TAB PO SCH (10:48)
[2016-06-11] MEDS: METOLAZONE 5 MG TAB PO SCH (10:48)
[2016-06-11] MEDS: HEPARIN SODIUM - SQ 10,000 UNITS/ML VIAL SQ SCH (10:48)
[2016-06-11] MEDS: LOSARTAN 50 MG TAB PO SCH (10:48)
[2016-06-11] MEDS: PANTOPRAZOLE SOD 20 MG DELAYED RELEASE TAB PO SCH (10:48)
[2016-06-11] MEDS: buPROPion HCL 150 MG SUSTAINED RELEASE TAB PO SCH (10:49)
[2016-06-11] MEDS: SEVELAMER CARBONATE 800 MG TAB PO SCH ×4 (10:49→18:00)
[2016-06-11] MEDS: SODIUM CHLORIDE 0.9% FLUSH 10 ML FLUSH IV FLUSH SCH ×2 (10:49→20:42)
[2016-06-11] MEDS: BUMETANIDE 1 MG TAB PO SCH ×2 (10:49→20:27)
--- NOTE | 2016-06-11 11:05 | HHI.PR ---
Subjective Subjective Notes no new c/o Objective Vitals/I&O Vital Signs Date Time Temp Pulse Resp B/P Pulse Ox O2 Delivery O2 Flow Rate FiO2 06/11/16 10:40 96 21 06/11/16 08:08 97.6 67 17 148/65 06/09/16 15:10 Room Air Labs Laboratory Tests Test 06/10/16 06/11/16 20:10 06:05 Tumor Marker Alpha Fetoprotein 9950.8 Carcinoembryonic Antigen 1.5 CA 19-9 Antigen 54.9 CA 125 Antigen 5.1 White Blood Count 7.7 Red Blood Count 4.33 Hemoglobin 11.3 Hematocrit 36.0 Mean Corpuscular Volume 83.2 Mean Corpuscular Hemoglobin 26.1 Mean Corpuscular Hemoglobin 31.4 Concent Red Cell Distribution Width 18.3 Platelet Count 180 Mean Platelet Volume 11.3 Sodium Level 138 Potassium Level 4.2 Chloride Level 98 Carbon Dioxide Level 29.0 Anion Gap 11 Blood Urea Nitrogen 68 Creatinine 5.66 Estimat Glomerular Filtration 9 Rate Random Glucose 145 Calcium Level 8.6 Phosphorus Level 5.6 Total Bilirubin 0.4 Aspartate Amino Transf 37 (AST/SGOT) Alanine Aminotransferase 26 (ALT/SGPT) Alkaline Phosphatase 227 Total Protein 7.4 Albumin 2.6 Abdomen: Non-distended, Non-tender A/P Assessment and Plan 75yo female with RUQ pain, likely malignant cause. will need workup, consider endoscopy electively Ariel Matamoros MD Jun 11, 2016 11:05
--- NOTE | 2016-06-11 14:14 | HHI.PR ---
Subjective Remarks 75yr old AAF seen and examined today. Still with pain in RUQ. No NVD/fever. No CP/SOB. No family in room. Objective Objective Results - Vital Signs Date Time Temp Pulse Resp B/P Pulse Ox O2 Delivery O2 Flow Rate FiO2 06/11/16 12:10 96.0 74 18 138/63 95 06/11/16 10:40 96 21 06/11/16 08:08 97.6 67 17 148/65 96 06/11/16 04:41 96.5 68 18 153/62 98 06/11/16 00:13 97.4 63 18 121/54 97 06/10/16 20:00 98.6 72 20 132/62 94 06/10/16 18:01 96 21 06/10/16 17:00 96.8 76 18 133/61 96 I/O 06/10/16 06/10/16 06/10/16 06/11/16 06/11/16 06/11/16 07:00 15:00 23:00 07:00 15:00 23:00 Intake Total 0 ml 480 ml 240 ml Balance 0 ml 480 ml 240 ml Intake Oral 480 ml 240 ml IV Total 0 ml # Voids 3 2 1 1 # Bowel Movements 0 Result Diagram: 06/11/16 0605 06/11/16 0605 Imaging Last Impressions Abdomen/Pelvis CT 06/09/16 0000 Signed Impressions: Service Date/Time: Thursday, June 09, 2016 14:28 - CONCLUSION: 1. Small calcified gallstones with no wall thickening or inflammatory change. 2. Mild diverticulosis with no inflammatory change or obstruction. 3. No renal calculi or hydronephrosis Jani Delgado MD Other Results Laboratory Tests Test 06/10/16 06/11/16 20:10 06:05 Tumor Marker Alpha Fetoprotein 9950.8 Carcinoembryonic Antigen 1.5 CA 19-9 Antigen 54.9 CA 125 Antigen 5.1 White Blood Count 7.7 Red Blood Count 4.33 Hemoglobin 11.3 Hematocrit 36.0 Mean Corpuscular Volume 83.2 Mean Corpuscular Hemoglobin 26.1 Mean Corpuscular Hemoglobin 31.4 Concent Red Cell Distribution Width 18.3 Platelet Count 180 Mean Platelet Volume 11.3 Sodium Level 138 Potassium Level 4.2 Chloride Level 98 Carbon Dioxide Level 29.0 Anion Gap 11 Blood Urea Nitrogen 68 Creatinine 5.66 Estimat Glomerular Filtration 9 Rate Random Glucose 145 Calcium Level 8.6 Phosphorus Level 5.6 Total Bilirubin 0.4 Aspartate Amino Transf 37 (AST/SGOT) Alanine Aminotransferase 26 (ALT/SGPT) Alkaline Phosphatase 227 Total Protein 7.4 Albumin 2.6 ROS General: Fatigue, Weakness, No: Other HEENT: No: Sore Throat, Dysphagia, Other Cardiac: No: Chest Pain, Edema, Palpitations, Other Pulmonary: No: Cough, SOB, Wheezing, Other GI: 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 She is alert and awake. HEAD: Normocephalic without any lesion or mass noted. . EYES: Perrla, Normal eye movement, no icterus. OROPHARYNGEAL: Oropharynx without erythema or edema. MOUTH/THROAT: Oral mucosa moist. NECK: Supple. Trachea midline without deviation. CARDIAC: Regular rhythm, regular rate, S1 and S2 are heard. LUNGS: Clear to auscultation bilaterally. ABDOMEN: Soft, RUQ tenderness Bowel sounds are heard in all four quadrants. No rebound. No guarding. EXTREMITIES: No CCE. NEUROLOGICAL: Patient mood and affect appropriate. SKIN:Warm and moist PSYCH: Mood and affect appropriate A/P Assessment and Plan 75-year-old elderly black female presented to the emergency room with right upper quadrant pain radiating to back, associated with nausea, vomiting, anorexia, weight loss. History of gallstones and liver lesions, currently undergoing workup. 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 In addition to echogenic masses were noted in the liver. -Appreciate Gen. surgery ,Dr. Matamoros's input. --Morphine 2 mg IV push every 4 as needed for pain -Hold surgery till evaluated by GI/oncology. Liver masses, possible malignancy with hypercoagulable state. Check tumor markers: CA 19-9, CEA, CA 125, AFP Request CT abd/pelvis with contrast: co-ordinate with her dialysis. Appreciate Dr. La's GI input. Appreciate Oncology input. Continue heparin. IR consult depending on CT report. 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 -Discussed with Dr. Vallecillo and Dr. La. Started patient on heparin. Monitor closely. End-stage renal disease, on dialysis Sunday and Sunday Appreciate nephro input. Hypertension, stable Continue home medication Type 2 diabetes Accu-Cheks before meals and at bedtime with insulin therapy SCDs for DVT prophylaxis Omeprazole for GI prophylaxis AM labs. DW patient/RN. Mario Alberto Zuleta MD Jun 11, 2016 14:14
[2016-06-11] MEDS ORDERED: IOHEXOL 350 MG/ML 10 ML VIAL (for RAD DIAG) IV ONE (17:28)
--- NOTE | 2016-06-11 18:16 | RADRPT ---
EXAM DATE/TIME: 06/11/2016 17:17 [facility] COMPARISON: CTA ABDOMEN W 3D RECON, May 20, 2015, 9:20. CT ABDOMEN & PELVIS W/O CONTRAST, June 09, 2016, 14:2 8. INDICATIONS : Right upper quadrant pain; rule out cholecystitis. IV CONTRAST: 80 cc Omnipaque 350 (iohexol) IV ORAL CONTRAST: No oral contrast ingested. RADIATION DOSE: 16.49 CTDIvol (mGy) MEDICAL HISTORY : Renal failure, chronic. Dialysis patient SURGICAL HISTORY : None. ENCOUNTER: Initial ACUITY: 1 day PAIN SCALE: 7/10 LOCATION: abdomen TECHNIQUE: Volumetric scanning of the abdomen was performed. Using automated exposure control and adjustment of the mA and/or kV according to patient size, radiation dose was kept as low as reasonably achievable to obtain optimal diagnostic quality images. FINDINGS: The multiple masses in the liver that has a background of fatty infiltration the largest one measures 3.6 cm in size in the left hepatic lobe. The spleen, pancreas, kidneys, adrenals are unremarkable. T here is no evidence for any appreciable pathological adenopathy, free fluid, or bowel obstruction. T here is old fracture of right L2 transverse process. Slight bibasilar atelectasis and/or infiltrate i s seen. Chronic vascular calcifications are present involving the aorta, iliac arteries without any s ignificant stenosis or aneurysmal dilatations for technique. The gallbladder demonstrates solitary st one without gallbladder wall thickening, or pericholecystic fluid. CONCLUSION: 1. Slight bibasilar atelectasis and/or infiltrate is seen. 2. Cholelithiasis. 3. There is fatty infiltration of the liver inhomogeneously with multiple enhancing masses and may co nsider abdominal MRI with intravenous contrast further characterized and exclude metastatic disease. Svetlana Floyd MD on June 11, 2016 at 18:11 Board Certified Radiologist. This report was verified electronically.
[2016-06-11 18:29] LABS: MEAN CELL VOLUME 82.8 FL (80.0-100.0); MEAN CORPUSCULAR HEMOGLOBIN 25.8 PG (27.0-34.0); MEAN CORPUSCULAR HGB CONC 31.1 % (32.0-36.0); PLATELET COUNT 179 TH/MM3 (150-450); RED BLOOD COUNT 4.22 MIL/MM3 (4.00-5.30); RED CELL DISTRIBUTION WIDTH 18.3 % (11.6-17.2); REVIEW FLAG FINAL
[2016-06-11 18:39] LABS: APTT (PATIENT) 32.3 SEC (24.3-30.1)
[2016-06-11] MEDS: HEPARIN-D5W INJ 250 ML IV SCH (20:25)
--- NOTE | 2016-06-11 23:35 | HHI.GIFU ---
Subjective Remarks The patient continues to complain of right upper abdominal pain otherwise doing well Objective Vitals I&O Vital Signs Date Time Temp Pulse Resp B/P Pulse Ox O2 Delivery O2 Flow Rate FiO2 06/11/16 20:00 98.4 68 20 132/60 96 06/11/16 18:56 95 21 06/11/16 16:18 98.3 71 18 151/68 95 06/11/16 12:10 96.0 74 18 138/63 95 06/11/16 10:40 96 21 06/11/16 08:08 97.6 67 17 148/65 96 06/11/16 04:41 96.5 68 18 153/62 98 06/11/16 00:13 97.4 63 18 121/54 97 I/O 06/10/16 06/10/16 06/10/16 06/11/16 06/11/16 06/11/16 07:00 15:00 23:00 07:00 15:00 23:00 Intake Total 0 ml 480 ml 240 ml 120 ml Balance 0 ml 480 ml 240 ml 120 ml Intake Oral 480 ml 240 ml 120 ml IV Total 0 ml # Voids 3 2 1 1 # Bowel Movements 0 Laboratory Laboratory Tests Test 06/11/16 06/11/16 06:05 18:00 White Blood Count 7.7 6.0 Red Blood Count 4.33 4.22 Hemoglobin 11.3 10.9 Hematocrit 36.0 35.0 Mean Corpuscular Volume 83.2 82.8 Mean Corpuscular Hemoglobin 26.1 25.8 Mean Corpuscular Hemoglobin 31.4 31.1 Concent Red Cell Distribution Width 18.3 18.3 Platelet Count 180 179 Mean Platelet Volume 11.3 10.3 Sodium Level 138 Potassium Level 4.2 Chloride Level 98 Carbon Dioxide Level 29.0 Anion Gap 11 Blood Urea Nitrogen 68 Creatinine 5.66 Estimat Glomerular Filtration 9 Rate Random Glucose 145 Calcium Level 8.6 Phosphorus Level 5.6 Total Bilirubin 0.4 Aspartate Amino Transf 37 (AST/SGOT) Alanine Aminotransferase 26 (ALT/SGPT) Alkaline Phosphatase 227 Total Protein 7.4 Albumin 2.6 Prothrombin Time 11.0 Prothromb Time International 1.0 Ratio Activated Partial 32.3 Thromboplast Time Imaging Last [address] 06/10/16 0000 Signed Impressions: Service Date/Time: Saturday, June 11, 2016 17:17 - CONCLUSION: 1. Slight bibasilar atelectasis and/or infiltrate is seen. 2. Cholelithiasis. 3. There is fatty infiltration of the liver inhomogeneously with multiple enhancing masses and may consider abdominal MRI with intravenous contrast further characterized and exclude metastatic disease. Svetlana Floyd MD Physical Exam HEENT: normocephalic;throat is clear. NECK: Neck is supple, CHEST: Chest is clear to auscultation and percussion. CARDIAC: Regular rate and rhythm with no murmur gallop or rubs. ABDOMEN: Soft, nondistended, upper abdominal tenderness no rebound or guarding ; no hepatosplenomegaly; bowel sounds are present in all four quadrants. EXTREMITIES: No clubbing, cyanosis, or edema. SKIN: Normal; no rash;. 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 Assessment and Plan Plan ASSESSMENT: -Liver masses, possible malignancy: Patient currently undergoing workup by GI. She has been referred to oncology, Dr. Mendes (outpatient) who she reports she has an appointment with next week. Gall Bladder Ultrasound 06/09--Enlarged liver with nonocclusive thrombus in portal vein, gallstones with thickened gallbladder. Echogenic masses were noted in the liver. Abdomen/Pelvis CT --1. Small calcified gallstones with no wall thickening or inflammatory change. 2. Mild diverticulosis with no inflammatory change or obstruction. 3. No renal calculi or hydronephrosis. Tumor markers CA 19-9, CEA, CA 125 ordered. Oncology consulted. Portal vein thrombosis most likely associated with liver malignancy with hypercoagulable state. Patient started on Heparin. AST 43, ALT 31, ALK Phos 243 -ESRD: Dialysis M, W, F. BUN 48, Cr 4.43 -Hypertension: Per primary. Stable. -DM, type 2. Per Primary PLAN: -With an abnormal liver on CT and significant elevation of the alpha- fetoprotein the diagnosis of hepatocellular carcinoma is confirmed and I doubt that the patient will need a liver biopsy but I will defer to oncology -Monitor labs -Further recommendations as per the oncology team not much to add from a GI standpoint. We'll sign off Miles La MD Jun 11, 2016 23:35
[2016-06-12] VITALS: BP 129/59; PULSE 62; RESP 20; TEMP 97; O2SAT 97
[2016-06-12 04:00] VITALS: BP 142/70; PULSE 71; RESP 20; TEMP 97.5; O2SAT 98
[2016-06-12 04:48] LABS: BICARBONATE 25.5 MEQ/L (21.0-32.0); POTASSIUM 4.1 MEQ/L (3.5-5.1)
[2016-06-12 05:11] LABS: APTT (PATIENT) 114.8 SEC (24.3-30.1)
[2016-06-12] MEDS: INSULIN ASPART SUPPLEMENTAL SCALE SQ SCH ×3 (05:46→21:00)
[2016-06-12 08:00] VITALS: BP 145/64; PULSE 73; RESP 15; TEMP 97.6; O2SAT 97
[2016-06-12] MEDS: SODIUM CHLORIDE 0.9% FLUSH 10 ML FLUSH IV FLUSH SCH ×2 (08:45→21:00)
[2016-06-12] MEDS: SEVELAMER CARBONATE 800 MG TAB PO SCH ×3 (09:00→17:46)
[2016-06-12] MEDS: METOLAZONE 5 MG TAB PO SCH (09:00)
[2016-06-12] MEDS: BUMETANIDE 1 MG TAB PO SCH ×2 (09:00→22:38)
[2016-06-12] MEDS: LOSARTAN 50 MG TAB PO SCH (10:23)
[2016-06-12] MEDS: PANTOPRAZOLE SOD 20 MG DELAYED RELEASE TAB PO SCH (10:24)
[2016-06-12 10:27] LABS: AUTOMATED NEUTROPHIL # 3.9 TH/MM3 (1.8-7.7); BASOPHIL % 0.7 % (0.0-2.0); EOSINOPHIL # 0.1 TH/MM3 (0-0.4); EOSINOPHIL % 1.9 % (0.0-4.0); HEMATOCRIT 35.9 % (35.0-46.0); HEMO FLAGS DIFF FINAL; LYMPHOCYTE # 1.3 TH/MM3 (1.0-4.8); MEAN CELL VOLUME 81.8 FL (80.0-100.0); MEAN CORPUSCULAR HEMOGLOBIN 26.4 PG (27.0-34.0); MEAN CORPUSCULAR HGB CONC 32.2 % (32.0-36.0); MONO % 9.6 % (0.0-8.0); NEUT % 65.8 % (16.0-70.0); PLATELET COUNT 194 TH/MM3 (150-450); RED BLOOD COUNT 4.39 MIL/MM3 (4.00-5.30); RED CELL DISTRIBUTION WIDTH 18.4 % (11.6-17.2)
--- NOTE | 2016-06-12 10:34 | HHI.PR ---
Subjective Remarks Awake Constipation, no BM since admission Afebrile Right upper quadrant pain continues (Carolyn Lopez) Objective Objective Results - Vital Signs Date Time Temp Pulse Resp B/P Pulse Ox O2 Delivery O2 Flow Rate FiO2 06/12/16 08:00 97.6 73 15 145/64 97 06/12/16 04:00 97.5 71 20 142/70 98 06/12/16 00:00 97.0 62 20 129/59 97 06/11/16 20:00 98.4 68 20 132/60 96 06/11/16 18:56 95 21 06/11/16 16:18 98.3 71 18 151/68 95 06/11/16 12:10 96.0 74 18 138/63 95 06/11/16 10:40 96 21 I/O 06/11/16 06/11/16 06/11/16 06/12/16 06/12/16 06/12/16 07:00 15:00 23:00 07:00 15:00 23:00 Intake Total 240 ml 360 ml 120 ml Output Total 400 ml Balance 240 ml -40 ml 120 ml Intake Oral 240 ml 360 ml 120 ml Output Urine Total 400 ml # Voids 1 1 1 # Bowel Movements 0 0 (Carolyn Lopez) Result Diagram: 06/11/16 1800 06/12/16 0357 ROS General: Weakness (generalized), Other (10 point ROS done positives include constipation, right upper quadrant pain, generalized weakness other systems negative or unremarkable) GI: Abdominal Pain (right upper quadrant), BM (none since admission) (Carolyn Lopez) Physical Exam Physical Exam PHYSICAL EXAMINATION GENERAL: This is a well-developed, well-nourished female who appears to be in mild distress. She awake, responds to simple questions HEAD: Normocephalic without any lesion or mass noted. Facial features appear symmetric. OROPHARYNGEAL: Oropharynx without erythema or edema. NECK: Supple. No nuchal rigidity or lymphadenopathy. Trachea midline without deviation. CARDIAC: Regular rhythm, regular rate, S1 and S2 are heard. Murmur none LUNGS: Low volumes to auscultation bilaterally. No wheezes or rhonchi noted ABDOMEN: Soft, mild tenderness right upper quadrant to light palpation, Bowel sounds present EXTREMITIES:no edema. Moves all extremities with purpose NEUROLOGICAL: Patient mood and affect appropriate. No focal deficit SKIN:Warm and moist Objective Remarks I'm still having pain in my right upper quadrant (Carolyn Lopez) A/P Assessment and Plan -Appreciate Gen. surgery ,Dr. Matamoros's input., No surgical intervention for now Would monitor from GI or oncology perspective Liver masses, possible malignancy with hypercoagulable state. Looking at possible biopsy Appreciate Dr. La's GI input. Appreciate Oncology input. Continue heparin drip, will look at transition to Coumadin Constipation, will review bowel regimen and give meds today considering around her dialysis Check for impaction, before giving M OM today Portal vein thrombosis: prob liver malignancy with hypercoagulable state. -Discussed with Dr. Vallecillo and Dr. La. Heparin drip continues, End-stage renal disease, on dialysis Sunday and Sunday Appreciate nephro input. Hypertension, stable Vital signs reviewed currently afebrile Monitor Type 2 diabetes Accu-Cheks before meals and at bedtime with insulin therapy SCDs for DVT prophylaxis Omeprazole for GI prophylaxis Discussed With: Nurse, Family (patient), Other (Dr. Garvin, seen on his behalf) (Carolyn Lopez) Assessment and Plan pt is seen & examined d/w PT d/w carolyn d/w DR catina chacontd HCC /elevated AFP for Liver Bx by IR cont current tx will f/u (Misael Garvin MD) Carolyn Lopez June 12, 2016 10:34 Misael Garvin MD June 12, 2016 16:27
[2016-06-12 10:37] LABS: APTT (PATIENT) 80.9 SEC (24.3-30.1)
[2016-06-12] MEDS ORDERED: MAGNESIUM HYDROXIDE SUSP 30 ML CUP PO PRN (10:45)
--- NOTE | 2016-06-12 11:44 | HHI.NPPN ---
Subjective Complaints: Abdominal Pain Renal Failure: Chronic, End Stage Renal Disease Interval History Having some nausea. Seen during dialysis. (Gem Terry) Review of Systems General Constitutional: Fatigue, Weight Change (Gem Terry) Gastrointestinal Gastrointestinal: Abdominal Pain, Nausea & Vomiting (Gem Terry) Objective Data Data 06/11/16 06/12/16 19:00 07:00 Intake Total 360 ml 360 ml Output Total 400 ml Balance 360 ml -40 ml Intake Oral 360 ml 360 ml Output Urine Total 400 ml # Voids 1 1 # Bowel Movements 0 Vital Signs Date Time Temp Pulse Resp B/P Pulse Ox O2 Delivery O2 Flow Rate FiO2 06/12/16 08:00 97.6 73 15 145/64 97 06/12/16 04:00 97.5 71 20 142/70 98 06/12/16 00:00 97.0 62 20 129/59 97 06/11/16 20:00 98.4 68 20 132/60 96 06/11/16 18:56 95 21 06/11/16 16:18 98.3 71 18 151/68 95 06/11/16 12:10 96.0 74 18 138/63 95 (Gem Terry) -: 06/12/16 1010 06/12/16 0357 Imaging Last [address] 06/10/16 0000 Signed Impressions: Service Date/Time: Saturday, June 11, 2016 17:17 - CONCLUSION: 1. Slight bibasilar atelectasis and/or infiltrate is seen. 2. Cholelithiasis. 3. There is fatty infiltration of the liver inhomogeneously with multiple enhancing masses and may consider abdominal MRI with intravenous contrast further characterized and exclude metastatic disease. Svetlana Floyd MD (Gem Terry) Physical Exam General Appearance: Well Developed, Comfortable, Malnourished Appearance Remarks tearful (Gem Terry) Throat Throat Exam: Oral Mucosa [place] & Moist (Gem Terry) Neck Neck Exam: Neck Supple (Gem Terry) Pulmonary Resp Exam: Clear Bilaterally, Breath Sounds Equal, No Distress (Gem Terry) Cardiology CV Exam: Regular, Normal Sinus Rhythm (Gem Terry) Gastrointestinal/Abdomen GI Exam: Soft, Non-Tender, Bowel Sounds Present (Gem Terry) Genitourinary Exam: Clear Urine (Gem Terry) Musculoskeletal MS Exam: Joints Intact, Normal Tone (Gem Terry) Integumentary Skin Exam: Intact (Gem Terry) Extremeties Extremities Exam: No Edema (Gem Terry) Neurologic Neuro Exam: Alert, Awake, Oriented, Speech Clear, Moving All Extremities ( Gem Terry) Assessment/Plan Discussed Condition With: Patient Assessment Summary: End Stage Renal Disease Problem List: (1) ESRD (end stage renal disease) Plan: Seen during dialysis on a 3K, 400 BFRE, goal 3L Dialysis will be continued MWF. Monitor electrolytes and fluid status. Avoid Gadolinium. Avoid IVF renal diet with no protein restriction (2) Right upper quadrant pain Plan: Suspected hepatocellular CA Surgery and oncology following portal vein thrombosis on heparin gtt Tumor markers following GI also following to have biopsy in IR (3) Type 2 diabetes mellitus Plan: insulin coverage as needed. Maintain blood glucose between 140 and 180. (4) Hypertension Plan: BP is acceptable. (5) Anemia Plan: Hemoglobin is acceptable. epogen not required (6) Metabolic bone disease Plan: Monitor phosphorus periodically. Continue Renvela. (Gem Terry) Plan patient was seen and examined. Dialysis MWF. Unfortunately she appears to have hepatocellular carcinoma. Biopsy of the liver mass is planned. (Jhon Vallecillo MD) Gem Terry June 12, 2016 11:44 Jhon Vallecillo MD June 13, 2016 10:56
[2016-06-12] MEDS: ONDANSETRON HCL 4 MG/2 ML VIAL IV PRN (12:54)
--- NOTE | 2016-06-12 13:00 | PD.ONC.PN ---
Subjective Subjective Remarks Afebrile overnight. Patient seen in dialysis. She is feeling nauseated this morning, but denies any pain. She has vomited several times in dialysis and they just gave her some zofran. Objective Data Date Time Temp Pulse Resp B/P Pulse Ox O2 Delivery O2 Flow Rate FiO2 06/12/16 08:00 97.6 73 15 145/64 97 06/12/16 04:00 97.5 71 20 142/70 98 06/12/16 00:00 97.0 62 20 129/59 97 06/11/16 20:00 98.4 68 20 132/60 96 06/11/16 18:56 95 21 06/11/16 16:18 98.3 71 18 151/68 95 06/12/16 06/12/16 06/12/16 07:00 15:00 23:00 Intake Total 120 ml Balance 120 ml Result Diagram: 06/12/16 1010 06/12/16 0357 Laboratory Results Laboratory Tests Test 06/11/16 06/12/16 06/12/16 18:00 03:57 10:10 White Blood Count 6.0 TH/MM3 6.0 TH/MM3 Red Blood Count 4.22 MIL/MM3 4.39 MIL/MM3 Hemoglobin 10.9 GM/DL 11.6 GM/DL Hematocrit 35.0 % 35.9 % Mean Corpuscular Volume 82.8 FL 81.8 FL Mean Corpuscular Hemoglobin 25.8 PG 26.4 PG Mean Corpuscular Hemoglobin 31.1 % 32.2 % Concent Red Cell Distribution Width 18.3 % 18.4 % Platelet Count 179 TH/MM3 194 TH/MM3 Mean Platelet Volume 10.3 FL 10.6 FL Prothrombin Time 11.0 SEC Prothromb Time International 1.0 RATIO Ratio Activated Partial 32.3 SEC 114.8 SEC 80.9 SEC Thromboplast Time Sodium Level 133 MEQ/L Potassium Level 4.1 MEQ/L Chloride Level 95 MEQ/L Carbon Dioxide Level 25.5 MEQ/L Anion Gap 13 MEQ/L Blood Urea Nitrogen 75 MG/DL Creatinine 5.57 MG/DL Estimat Glomerular Filtration 9 ML/MIN Rate Random Glucose 170 MG/DL Calcium Level 8.7 MG/DL Neutrophils (%) (Auto) 65.8 % Lymphocytes (%) (Auto) 22.0 % Monocytes (%) (Auto) 9.6 % Eosinophils (%) (Auto) 1.9 % Basophils (%) (Auto) 0.7 % Neutrophils # (Auto) 3.9 TH/MM3 Lymphocytes # (Auto) 1.3 TH/MM3 Monocytes # (Auto) 0.6 TH/MM3 Eosinophils # (Auto) 0.1 TH/MM3 Basophils # (Auto) 0.0 TH/MM3 CBC Comment DIFF FINAL Differential Comment Administered Medications Medications (Trade) Dose Ordered Sig/Merna Route PRN Reason Start Time Stop Time Status Last Admin Dose Admin Sodium Chloride 2 ml 2 ml BID IV FLUSH 06/09/16 21:00 06/11/16 20:42 Sodium Chloride (NS 1000 ml Inj) 1,000 ml @ 0 mls/hr Q0M PRN IV For Prime & Rinse Back 06/09/16 16:42 06/12/16 10:56 Ondansetron HCl (Zofran Inj) 4 mg UNSCH PRN IV WITH DIALYSIS 06/09/16 16:45 06/12/16 12:54 Gelatin (Gelfoam 12 Mm/7 Mm Top) 1 foam UNSCH PRN TOP SEE LABEL COMMENTS 06/09/16 16:45 06/12/16 10:57 Morphine Sulfate (Morphine Inj) 2 mg Q3H PRN IV PUSH pain 5 to 10 06/09/16 17:45 06/09/16 22:27 Amlodipine Besylate (Norvasc) 10 mg DAILY PO 06/10/16 09:00 06/12/16 10:24 Bumetanide (Bumetanide) 2 mg BID PO 06/09/16 21:00 06/11/16 20:27 Bupropion HCl (Wellbutrin Sr) 150 mg DAILY PO 06/10/16 09:00 06/11/16 10:49 Escitalopram Oxalate (Lexapro) 10 mg DAILY PO 06/10/16 09:00 06/11/16 10:48 Losartan Potassium (Cozaar) 100 mg DAILY PO 06/10/16 09:00 06/12/16 10:23 Metolazone (Zaroxolyn) 5 mg DAILY PO 06/10/16 09:00 06/11/16 10:48 Ropinirole HCl (Requip) 2 mg HS PO 06/09/16 21:00 06/11/16 20:27 Pantoprazole Sodium (Protonix) 20 mg DAILY PO 06/10/16 09:00 06/12/16 10:24 Sevelamer Carbonate (Renvela) 2,400 mg TID PO 06/09/16 18:00 06/11/16 10:49 Acetaminophen/ Hydrocodone Bitart 1 tab 1 tab Q6H PRN PO PAIN SCALE 5 TO 10 06/10/16 16:30 06/10/16 16:57 Heparin Sodium/ Dextrose (Heparin-D5W Inj) 250 ml @ 0 mls/hr TITRATE IV 06/11/16 13:30 06/11/16 20:25 Objective Remarks GENERAL: Elderly female, sitting up, receiving dialysis, vomiting in to emesis basin. SKIN: Warm and dry. HEAD: Normocephalic. EYES: No injection or drainage. NECK: Supple, trachea midline. CARDIOVASCULAR: Regular rate and rhythm RESPIRATORY: Breath sounds equal bilaterally. No accessory muscle use. GASTROINTESTINAL: Abdomen soft, non-tender, nondistended. EXTREMITIES: No cyanosis NEUROLOGICAL: awake and alert. Assessment/Plan Problem List: (1) Liver masses Status: Acute Plan: 06/12: IR to biopsy liver mass. --gallbladder ultrasound showed the liver is enlarged with the clot identified in the portal vein. Two echogenic masses are seen in the liver as well. --CT abdomen and pelvis without contrast which did not show any liver masses. The liver is homogeneous, no dilatation noted. Small calcified gallstones are noted. --AFP significantly elevated --CA 19-9 slightly elevated (2) Portal vein thrombosis Status: Acute Plan: --06/12: continue heparin gtt. start Coumadin after procedures complete Assessment 75y/o with portal vein thrombosis and possible liver masses. --end-stage renal disease (HD MWF) --history of hypertension, hypercholesterolemia, CVA, type 2 diabetes mellitus. --h/o Congestive heart failure, Coronary artery disease, Hepatitis C, COPD, Attending Statement c/o RUQ pain and neck pain. d/w pt and caregiver regarding liver mass bx. Discuss pros and cons. Pt agrees to have the bx. IR consulted for bx. yesterday. ? schedule. d/w Dr Garvin. after bx start low dose eliquis 2.5 mg BID. Coumadin is not a good choice due to multiple liver masses. ( difficult to maintain therapeutic INR). She has appt with Dr Mendes this . She wants to see him with her son. 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 No surgery or XRT. Not a candidate for systemic chemo or Nexavar due to ESRD. I recommend hospice. She wants to discuss with DR Mendes. The exam, history, and the medical decision-making described in the above note were completed with the assistance of the mid-level provider. I reviewed and agree with the findings presented. I attest that I had a [id number] encounter with the patient on the same day, and personally performed and documented my assessment and findings in the medical record. Celia Busby June 12, 2016 13:00 Giancarlo Pickard MD June 12, 2016 19:24
--- NOTE | 2016-06-12 15:58 | HHI.PR ---
Subjective Subjective Notes Resting in bed eating cheese and crackers Had HD this morning Objective Vitals/I&O Vital Signs Date Time Temp Pulse Resp B/P Pulse Ox O2 Delivery O2 Flow Rate FiO2 06/12/16 08:00 97.6 73 15 145/64 97 06/11/16 18:56 21 06/09/16 15:10 Room Air Labs Laboratory Tests Test 06/11/16 06/12/16 06/12/16 18:00 03:57 10:10 White Blood Count 6.0 6.0 Red Blood Count 4.22 4.39 Hemoglobin 10.9 11.6 Hematocrit 35.0 35.9 Mean Corpuscular Volume 82.8 81.8 Mean Corpuscular Hemoglobin 25.8 26.4 Mean Corpuscular Hemoglobin 31.1 32.2 Concent Red Cell Distribution Width 18.3 18.4 Platelet Count 179 194 Mean Platelet Volume 10.3 10.6 Prothrombin Time 11.0 Prothromb Time International 1.0 Ratio Activated Partial 32.3 114.8 80.9 Thromboplast Time Sodium Level 133 Potassium Level 4.1 Chloride Level 95 Carbon Dioxide Level 25.5 Anion Gap 13 Blood Urea Nitrogen 75 Creatinine 5.57 Estimat Glomerular Filtration 9 Rate Random Glucose 170 Calcium Level 8.7 Neutrophils (%) (Auto) 65.8 Lymphocytes (%) (Auto) 22.0 Monocytes (%) (Auto) 9.6 Eosinophils (%) (Auto) 1.9 Basophils (%) (Auto) 0.7 Neutrophils # (Auto) 3.9 Lymphocytes # (Auto) 1.3 Monocytes # (Auto) 0.6 Eosinophils # (Auto) 0.1 Basophils # (Auto) 0.0 CBC Comment DIFF FINAL Differential Comment Cardiovascular: Regular Lungs: Clear Abdomen: Non-distended, Non-tender Extremities: No edema A/P Assessment and Plan 75 year old female admitted with RUQ pain (now resolved); Questionable hepatocellular cancer??; ESRD -HD MWF -Diet as tolerated -OOB and mobilize -IR consult for liver biopsy -No acute surgical interventions at this time Attending Statement The exam, history, and the medical decision-making described in the above note were completed with the assistance of the mid-level provider. I reviewed and agree with the findings presented. I attest that I had a [id number] encounter with the patient on the same day, and personally performed and documented my assessment and findings in the medical record. Abdominal exam, non-tender, agree with oncology workup, hold off on any surgery for now Loraine Valdivia June 12, 2016 15:58 Ariel Matamoros MD July 11, 2016 11:22
[2016-06-12 16:00] VITALS: BP 119/56; PULSE 78; RESP 16; TEMP 97.4; O2SAT 97
[2016-06-12] MEDS: ESCITALOPRAM OXALATE 10 MG TAB PO SCH (17:46)
[2016-06-12] MEDS: buPROPion HCL 150 MG SUSTAINED RELEASE TAB PO SCH (17:46)
[2016-06-12] MEDS: ACETAMINOPHEN/HYDROcodone 325 MG/5 MG TAB PO PRN (18:01)
[2016-06-12 20:30] VITALS: BP 124/58; PULSE 71; RESP 17; TEMP 99.3; O2SAT 96
[2016-06-12 20:59] LABS: APTT (PATIENT) 49.4 SEC (24.3-30.1)
[2016-06-13] VITALS (8 sets, daily range): BP systolic 119–144; BP diastolic 53–63; PULSE 67–75; RESP 18–20; TEMP 96.9–98.9; O2SAT 88–97
[2016-06-13 03:25] LABS: APTT (PATIENT) 43.7 SEC (24.3-30.1)
[2016-06-13] MEDS: INSULIN ASPART SUPPLEMENTAL SCALE SQ SCH ×4 (06:19→21:56)
[2016-06-13] MEDS: BUMETANIDE 1 MG TAB PO SCH ×2 (08:40→21:54)
[2016-06-13] MEDS: ESCITALOPRAM OXALATE 10 MG TAB PO SCH (08:40)
[2016-06-13] MEDS: buPROPion HCL 150 MG SUSTAINED RELEASE TAB PO SCH (08:41)
[2016-06-13] MEDS: SEVELAMER CARBONATE 800 MG TAB PO SCH ×3 (08:41→18:18)
[2016-06-13] MEDS: LOSARTAN 50 MG TAB PO SCH (08:41)
[2016-06-13] MEDS: METOLAZONE 5 MG TAB PO SCH (08:41)
[2016-06-13] MEDS: PANTOPRAZOLE SOD 20 MG DELAYED RELEASE TAB PO SCH (08:41)
[2016-06-13] MEDS: SODIUM CHLORIDE 0.9% FLUSH 10 ML FLUSH IV FLUSH SCH ×2 (09:00→21:00)
--- NOTE | 2016-06-13 12:02 | HHI.NPPN ---
Subjective Complaints: Abdominal Pain Renal Failure: Chronic, End Stage Renal Disease Interval History Sitting in bed, not in distress. NPO for biopsy today. Dialyzed yesterday. ( Gem Terry) Review of Systems General Constitutional: Fatigue, Weight Change (Gem Terry) Gastrointestinal Gastrointestinal: Abdominal Pain, Nausea & Vomiting (Gem Terry) Objective Data Data 06/12/16 06/13/16 19:00 07:00 Intake Total 1050 ml Output Total 2000 ml Balance -2000 ml 1050 ml Intake Oral 1050 ml Hemodialysis 2000 ml # Voids 1 2 # Bowel Movements 0 0 Vital Signs Date Time Temp Pulse Resp B/P Pulse Ox O2 Delivery O2 Flow Rate FiO2 06/13/16 08:00 97.1 75 18 134/63 92 06/13/16 04:00 98.9 67 18 125/60 97 06/12/16 20:30 99.3 71 17 124/58 96 06/12/16 16:00 97.4 78 16 119/56 97 (Gem Terry) -: 06/12/16 1010 06/12/16 0357 Physical Exam General Appearance: Well Developed, Comfortable, Malnourished Appearance Remarks tearful (Gem Terry) Throat Throat Exam: Oral Mucosa [place] & Moist (Gem Terry) Neck Neck Exam: Neck Supple (Gem Terry) Pulmonary Resp Exam: Clear Bilaterally, Breath Sounds Equal, No Distress (Gem Terry) Cardiology CV Exam: Regular, Normal Sinus Rhythm (Gem Terry) Gastrointestinal/Abdomen GI Exam: Soft, Non-Tender, Bowel Sounds Present (Gem Terry) Genitourinary Exam: Clear Urine (Gem Terry) Musculoskeletal MS Exam: Joints Intact, Normal Tone (Gem Terry) Integumentary Skin Exam: Intact (Gem Terry) Extremeties Extremities Exam: No Edema (Gem Terry) Neurologic Neuro Exam: Alert, Awake, Oriented, Speech Clear, Moving All Extremities ( Gem Terry) Assessment/Plan Discussed Condition With: Patient Assessment Summary: End Stage Renal Disease Problem List: (1) ESRD (end stage renal disease) Plan: 2L UF yesterday Dialysis will be continued MWF. Monitor electrolytes and fluid status. Avoid Gadolinium. Avoid IVF renal diet with no protein restriction (2) Right upper quadrant pain Plan: Suspected hepatocellular CA Due for biopsy today, Surgery and oncology following she is not a candidate for systemic therapy or XRT hospice appropriate (3) Type 2 diabetes mellitus Plan: insulin coverage as needed. Maintain blood glucose between 140 and 180. (4) Hypertension Plan: BP is acceptable. (5) Anemia Plan: Hemoglobin is acceptable. epogen not required (6) Metabolic bone disease Plan: Monitor phosphorus periodically. Continue Renvela. (Gem Terry) Plan patient was seen and examined. Agree with above assessment and plan. Unfortunately appears to have hepatocellular carcinoma, hospice is being suggested. (Jhon Vallecillo MD) Gem Terry June 13, 2016 12:02 Jhon Vallecillo MD June 13, 2016 20:14
--- NOTE | 2016-06-13 12:57 | PD.ONC.PN ---
Subjective Subjective Remarks Afebrile overnight. patient resting with friend at bedside. She denies bleeding or pain. Objective Data Date Time Temp Pulse Resp B/P Pulse Ox O2 Delivery O2 Flow Rate FiO2 06/13/16 12:00 96.9 73 20 119/57 95 06/13/16 08:00 97.1 75 18 134/63 92 06/13/16 04:00 98.9 67 18 125/60 97 06/12/16 20:30 99.3 71 17 124/58 96 06/12/16 16:00 97.4 78 16 119/56 97 06/13/16 06/13/16 06/13/16 07:00 15:00 23:00 Intake Total 400 ml Balance 400 ml Result Diagram: 06/12/16 1010 06/12/16 0357 Laboratory Results Laboratory Tests Test 06/12/16 06/13/16 20:28 02:56 Activated Partial 49.4 SEC 43.7 SEC Thromboplast Time Administered Medications Medications (Trade) Dose Ordered Sig/Merna Route PRN Reason Start Time Stop Time Status Last Admin Dose Admin Sodium Chloride 2 ml 2 ml BID IV FLUSH 06/09/16 21:00 06/11/16 20:42 Sodium Chloride (NS 1000 ml Inj) 1,000 ml @ 0 mls/hr Q0M PRN IV For Prime & Rinse Back 06/09/16 16:42 06/12/16 10:56 Ondansetron HCl (Zofran Inj) 4 mg UNSCH PRN IV WITH DIALYSIS 06/09/16 16:45 06/12/16 12:54 Gelatin (Gelfoam 12 Mm/7 Mm Top) 1 foam UNSCH PRN TOP SEE LABEL COMMENTS 06/09/16 16:45 06/12/16 10:57 Morphine Sulfate (Morphine Inj) 2 mg Q3H PRN IV PUSH pain 5 to 10 06/09/16 17:45 06/09/16 22:27 Amlodipine Besylate (Norvasc) 10 mg DAILY PO 06/10/16 09:00 06/13/16 08:41 Bumetanide (Bumetanide) 2 mg BID PO 06/09/16 21:00 06/13/16 08:40 Bupropion HCl (Wellbutrin Sr) 150 mg DAILY PO 06/10/16 09:00 06/13/16 08:41 Escitalopram Oxalate (Lexapro) 10 mg DAILY PO 06/10/16 09:00 06/13/16 08:40 Losartan Potassium (Cozaar) 100 mg DAILY PO 06/10/16 09:00 06/13/16 08:41 Metolazone (Zaroxolyn) 5 mg DAILY PO 06/10/16 09:00 06/13/16 08:41 Ropinirole HCl (Requip) 2 mg HS PO 06/09/16 21:00 06/12/16 22:38 Pantoprazole Sodium (Protonix) 20 mg DAILY PO 06/10/16 09:00 06/13/16 08:41 Sevelamer Carbonate (Renvela) 2,400 mg TID PO 06/09/16 18:00 06/12/16 17:46 Acetaminophen/ Hydrocodone Bitart 1 tab 1 tab Q6H PRN PO PAIN SCALE 5 TO 10 06/10/16 16:30 06/12/16 18:01 Heparin Sodium/ Dextrose (Heparin-D5W Inj) 250 ml @ 0 mls/hr TITRATE IV 06/11/16 13:30 06/11/16 20:25 Magnesium Hydroxide (Milk Of Magnesia Liq) 30 ml DAILY PRN PO CONSTIPATION 06/12/16 10:45 06/12/16 22:42 Objective Remarks GENERAL: Elderly female, sitting up in bed [facility] SKIN: Warm and dry. HEAD: Normocephalic. EYES: No injection or drainage. NECK: Supple, trachea midline. CARDIOVASCULAR: Regular rate and rhythm. RESPIRATORY: Breath sounds equal bilaterally. No accessory muscle use. GASTROINTESTINAL: Abdomen soft, non-tender, nondistended. EXTREMITIES: No cyanosis NEUROLOGICAL: awake and alert, normal speech. moving all extremities. Assessment/Plan Problem List: (1) Liver masses Status: Acute Plan: 06/13: CT findings and tumor markers are consistent with multifocal HCC. Unfortunately she is not a candidate for systemic chemotherapy or Nexavar because of her renal failure. we have recommended hospice to the patient. She has an appointment with Dr. Mendes this and would like to discuss with him. --gallbladder ultrasound showed the liver is enlarged with the clot identified in the portal vein. Two echogenic masses are seen in the liver as well. --CT abdomen and pelvis without contrast which did not show any liver masses. The liver is homogeneous, no dilatation noted. Small calcified gallstones are noted. --AFP significantly elevated --CA 19-9 slightly elevated (2) Portal vein thrombosis Status: Acute Plan: --06/13: after biopsy, start low dose Eliquis 2.5mg PO BID. Coumadin is not a good choice due to multiple liver masses. ( difficult to maintain therapeutic INR). Assessment 75y/o with portal vein thrombosis and possible liver masses. --end-stage renal disease (HD MWF) --history of hypertension, hypercholesterolemia, CVA, type 2 diabetes mellitus. --h/o Congestive heart failure, Coronary artery disease, Hepatitis C, COPD, Attending Statement no new c/o Liver mass bx today. start low dose Eliquis for PVT. Ok to d/c The exam, history, and the medical decision-making described in the above note were completed with the assistance of the mid-level provider. I reviewed and agree with the findings presented. I attest that I had a [id number] encounter with the patient on the same day, and personally performed and documented my assessment and findings in the medical record. Celia Busby June 13, 2016 12:57 Giancarlo Pickard MD June 14, 2016 05:55
[2016-06-13] MEDS: ACETAMINOPHEN/HYDROcodone 325 MG/5 MG TAB PO PRN (13:25)
--- NOTE | 2016-06-13 14:03 | HHI.PR ---
Subjective Remarks Awake Constipation, no BM since admission Afebrile Right upper quadrant pain continues (Carolyn Lopez) Objective Objective Results - Vital Signs Date Time Temp Pulse Resp B/P Pulse Ox O2 Delivery O2 Flow Rate FiO2 06/13/16 12:00 96.9 73 20 119/57 95 06/13/16 08:00 97.1 75 18 134/63 92 06/13/16 04:00 98.9 67 18 125/60 97 06/12/16 20:30 99.3 71 17 124/58 96 06/12/16 16:00 97.4 78 16 119/56 97 I/O 06/12/16 06/12/16 06/12/16 06/13/16 06/13/16 06/13/16 07:00 15:00 23:00 07:00 15:00 23:00 Intake Total 120 ml 650 ml 400 ml Output Total 2000 ml Balance 120 ml -2000 ml 650 ml 400 ml Intake Oral 120 ml 650 ml 400 ml Hemodialysis 2000 ml # Voids 1 1 1 1 # Bowel Movements 0 0 0 0 (Carolyn Lopez) Result Diagram: 06/12/16 1010 06/12/16 0357 Physical Exam Physical Exam PHYSICAL EXAMINATION GENERAL: This is a well-developed, well-nourished female who appears to be in no acute distress. She is alert and awake, []. HEAD: Normocephalic without any lesion or mass noted. Facial features appear symmetric. OROPHARYNGEAL: Oropharynx without erythema or edema. NECK: Supple. No nuchal rigidity or lymphadenopathy. Trachea midline without deviation. CARDIAC: Regular rhythm, regular rate, S1 and S2 are heard. Murmur []; no gallops or rubs. LUNGS: Clear to auscultation bilaterally. [] wheeze, [] rhonchi or [] rale. No use of accessory muscles on inspiration or expiration. ABDOMEN: Soft, nontender, no organomegaly or masses. Bowel sounds are heard in all four quadrants. No rebound. No guarding. EXTREMITIES: [] edema. Pulses equal bilateral. [] cyanosis. NEUROLOGICAL: Patient mood and affect appropriate. No focal deficit SKIN:Warm and moist (Carolyn Lopez) A/P Assessment and Plan -Appreciate Gen. surgery ,Dr. Matamoros's input., No surgical intervention for now Would monitor from GI or oncology perspective Liver masses, possible malignancy Plan for biopsies this afternoon Supportive care, patient nervous about outcome Patient still has some right upper and lower quadrant pain, but states that has improved today some Pain management Appreciate Dr. La's GI input. Appreciate Oncology input. Continue heparin drip, will look at transition to Coumadin possible tomorrow after biopsies done. Constipation, will review bowel regimen and give meds today considering around her dialysis BM today 1, monitor her needs Portal vein thrombosis: Possible secondary to metastasis and or malignancy -Discussed with Dr. Vallecillo and Dr. La. Heparin drip continues, End-stage renal disease, on dialysis Sunday and Sunday Appreciate nephro input. Hypertension, stable Vital signs reviewed currently afebrile Monitor Type 2 diabetes Accu-Cheks before meals and at bedtime with insulin therapy SCDs for DVT prophylaxis Omeprazole for GI prophylaxis BMP in a.m. Discussed With: Nurse, Family (patient), Other (Dr. Garvin, seen on his behalf) (Carolyn Lopez) Assessment and Plan PT is seen & examined d/w PT d/w Carolyn agree w above cont current tx for liver bx today, Off IV heparin possible Eliquis from tomorrow overall prognosis is poor , Pt not ready for Hospice ss for d /c planning will f/u (Misael Garvin MD) Carolyn Lopez June 13, 2016 14:03 Misael Garvin MD June 13, 2016 14:32
[2016-06-13] MEDS ORDERED: LIDOCAINE 1%/EPINEPHrine 1:100,000 SOLN 20 ML VIAL ONE (14:38)
[2016-06-13] MEDS ORDERED: fentaNYL CITRATE 250 MCG/5 ML AMP ONE (14:59)
[2016-06-13] MEDS ORDERED: MIDAZOLAM HCL 5 MG/5 ML VIAL ONE (14:59)
--- NOTE | 2016-06-13 16:25 | RADRPT ---
EXAM DATE/TIME: 06/13/2016 15:08 [place] COMPARISON: No previous studies available for comparison. INDICATIONS : Liver mass SEDATION TIME: 15 minutes BIOPSY SITE: Left lobe of the liver MEDICATION(S): 1.) 0.5 mg midazolam (Versed) IV 2.) 25 mcg fentanyl (Sublimaze) IV DEVICE(S): 1.) 18 gauge Temno core biopsy needle MEDICAL HISTORY : Renal failure, chronic. Hypertension. Diabetes mellitus type 2. Hep C SURGICAL HISTORY : Hysterectomy. ENCOUNTER: Initial ACUITY: 1 day PAIN SCORE: 5/10 LOCATION: Left lobe of the liver A total of one core specimen(s) were obtained and sent to the laboratory for pathologic evaluation. PROCEDURE: 1. CT guided liver biopsy. Prior to the procedure informed consent was obtained. Any appropriate prior imaging studies were rev iewed. Using automated exposure control and adjustment of the mA and/or kV according to patient size, radiat ion dose was kept as low as reasonably achievable to obtain optimal diagnostic quality images. The site was prepped in a sterile fashion. Full sterile technique was used, including cap, mask, darcie rile gloves and gown and a large sterile sheet. Hand hygiene and 2% chlorhexidine and/or betadine/al cohol prep was utilized per protocol for cutaneous antisepsis. The skin and subcutaneous tissues wer e infiltrated with local anesthetic solution. With CT guidance the previously identified target was localized. Biopsy was performed using the presc ribed needle as above. Adequate hemostasis was obtained with compression at the puncture site. Follow-up CT scan reveals no hemorrhage. The patient tolerated the procedure well and there were no complications. The patient was returned to the Radiology Outpatient Unit in stable condition. CONCLUSION: Uncomplicated CT guided biopsy. Kt Stern MD on June 13, 2016 at 16:22 Board Certified Radiologist. This report was verified electronically.
[2016-06-14] VITALS: BP 129/59; PULSE 70; RESP 20; TEMP 97.5; O2SAT 95
[2016-06-14] MEDS: INSULIN ASPART SUPPLEMENTAL SCALE SQ SCH ×5 (06:18→21:00)
[2016-06-14 08:29] LABS: HEMATOCRIT 36.8 % (35.0-46.0); MEAN CELL VOLUME 82.6 FL (80.0-100.0); MEAN CORPUSCULAR HEMOGLOBIN 26.2 PG (27.0-34.0); MEAN CORPUSCULAR HGB CONC 31.8 % (32.0-36.0); PLATELET COUNT 196 TH/MM3 (150-450); RED BLOOD COUNT 4.45 MIL/MM3 (4.00-5.30); REVIEW FLAG FINAL
[2016-06-14 08:32] VITALS: BP 145/65; PULSE 74; RESP 16; TEMP 96.4; O2SAT 96
[2016-06-14 08:46] LABS: APTT (PATIENT) 76.5 SEC (24.3-30.1)
[2016-06-14] MEDS: HEPARIN-D5W INJ 250 ML IV SCH (08:52)
[2016-06-14] MEDS: SODIUM CHLORIDE 0.9% FLUSH 10 ML FLUSH IV FLUSH SCH ×2 (08:52→21:00)
--- NOTE | 2016-06-14 08:59 | PD.ONC.PN ---
Subjective Subjective Remarks no new c/o Objective Data Date Time Temp Pulse Resp B/P Pulse Ox O2 Delivery O2 Flow Rate FiO2 06/14/16 08:32 96.4 74 16 145/65 96 06/14/16 00:00 97.5 70 20 129/59 95 06/13/16 20:00 97.3 72 20 144/63 97 06/13/16 16:37 06/13/16 16:29 68 94 06/13/16 16:15 68 18 126/53 95 06/13/16 16:00 98.4 68 18 126/57 95 06/13/16 15:45 98.4 68 18 127/55 88 06/13/16 12:00 96.9 73 20 119/57 95 06/14/16 06/14/16 06/14/16 07:00 15:00 23:00 Intake Total 120 ml Balance 120 ml Result Diagram: 06/14/16 0700 06/12/16 0357 Laboratory Results Laboratory Tests Test 06/14/16 07:00 White Blood Count 6.0 TH/MM3 Red Blood Count 4.45 MIL/MM3 Hemoglobin 11.7 GM/DL Hematocrit 36.8 % Mean Corpuscular Volume 82.6 FL Mean Corpuscular Hemoglobin 26.2 PG Mean Corpuscular Hemoglobin 31.8 % Concent Red Cell Distribution Width 18.0 % Platelet Count 196 TH/MM3 Mean Platelet Volume 10.5 FL Activated Partial 76.5 SEC Thromboplast Time Imaging Studies Last 24 hours Impressions Liver Biopsy CT 06/13/16 1421 Signed Impressions: Service Date/Time: Monday, June 13, 2016 15:08 - CONCLUSION: Uncomplicated CT guided biopsy. Kt Stern MD Administered Medications Medications (Trade) Dose Ordered Sig/Merna Route PRN Reason Start Time Stop Time Status Last Admin Dose Admin Sodium Chloride 2 ml 2 ml BID IV FLUSH 06/09/16 21:00 06/13/16 21:00 Sodium Chloride (NS 1000 ml Inj) 1,000 ml @ 0 mls/hr Q0M PRN IV For Prime & Rinse Back 06/09/16 16:42 06/12/16 10:56 Ondansetron HCl (Zofran Inj) 4 mg UNSCH PRN IV WITH DIALYSIS 06/09/16 16:45 06/12/16 12:54 Gelatin (Gelfoam 12 Mm/7 Mm Top) 1 foam UNSCH PRN TOP SEE LABEL COMMENTS 06/09/16 16:45 06/12/16 10:57 Morphine Sulfate (Morphine Inj) 2 mg Q3H PRN IV PUSH pain 5 to 10 06/09/16 17:45 06/09/16 22:27 Amlodipine Besylate (Norvasc) 10 mg DAILY PO 06/10/16 09:00 06/13/16 08:41 Bumetanide (Bumetanide) 2 mg BID PO 06/09/16 21:00 06/13/16 21:54 Bupropion HCl (Wellbutrin Sr) 150 mg DAILY PO 06/10/16 09:00 06/13/16 08:41 Escitalopram Oxalate (Lexapro) 10 mg DAILY PO 06/10/16 09:00 06/13/16 08:40 Losartan Potassium (Cozaar) 100 mg DAILY PO 06/10/16 09:00 06/13/16 08:41 Metolazone (Zaroxolyn) 5 mg DAILY PO 06/10/16 09:00 06/13/16 08:41 Ropinirole HCl (Requip) 2 mg HS PO 06/09/16 21:00 06/13/16 21:54 Pantoprazole Sodium (Protonix) 20 mg DAILY PO 06/10/16 09:00 06/13/16 08:41 Sevelamer Carbonate (Renvela) 2,400 mg TID PO 06/09/16 18:00 06/13/16 18:18 Acetaminophen/ Hydrocodone Bitart 1 tab 1 tab Q6H PRN PO PAIN SCALE 5 TO 10 06/10/16 16:30 06/13/16 13:25 Heparin Sodium/ Dextrose (Heparin-D5W Inj) 250 ml @ 0 mls/hr TITRATE IV 06/11/16 13:30 06/14/16 08:52 Magnesium Hydroxide (Milk Of Magnesia Liq) 30 ml DAILY PRN PO CONSTIPATION 06/12/16 10:45 06/12/16 22:42 Objective Remarks GENERAL: Well-nourished, well-developed patient. SKIN: Warm and dry. HEAD: Normocephalic. EYES: No scleral icterus. No injection or drainage. NECK: Supple, trachea midline. No JVD or lymphadenopathy. LYMPHATIC: No adenopathy. CARDIOVASCULAR: Regular rate and rhythm without murmurs. RESPIRATORY: Breath sounds equal bilaterally. No accessory muscle use. GASTROINTESTINAL: Abdomen soft, non-tender, nondistended. EXTREMITIES: No cyanosis, or edema. NEUROLOGICAL: No obvious focal deficit. Awake, alert, and oriented x3. Assessment/Plan Problem List: (1) Liver masses Status: Acute Plan: 06/14 s/p Liver mass bx yesterday. Path is still pending. 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 She is not a candidate for any treatment. My advice is hospice. She has appt with DR Mendes tomorrow at 1 PM. She does not want to miss the appt. OK to d/c in am. 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 Unfortunately she is not a candidate for systemic chemotherapy or Nexavar because of her renal failure. we have recommended hospice to the patient. She has an appointment with Dr. Mendes this and would like to discuss with him. --gallbladder ultrasound showed the liver is enlarged with the clot identified in the portal vein. Two echogenic masses are seen in the liver as well. --CT abdomen and pelvis without contrast which did not show any liver masses. The liver is homogeneous, no dilatation noted. Small calcified gallstones are noted. --AFP significantly elevated --CA 19-9 slightly elevated (2) Portal vein thrombosis Status: Acute Plan: 06/14 Start elquis 2.5 mg Po BID 06/13: after biopsy, start low dose Eliquis 2.5mg PO BID. Coumadin is not a good choice due to multiple liver masses. ( difficult to maintain therapeutic INR). Assessment 75y/o with portal vein thrombosis and possible liver masses. --end-stage renal disease (HD MWF) --history of hypertension, hypercholesterolemia, CVA, type 2 diabetes mellitus. --h/o Congestive heart failure, Coronary artery disease, Hepatitis C, COPD, Giancarlo Pickard MD June 14, 2016 08:59
[2016-06-14 09:05] LABS: BICARBONATE 31.2 MEQ/L (21.0-32.0); POTASSIUM 4.2 MEQ/L (3.5-5.1)
--- NOTE | 2016-06-14 11:10 | HHI.NPPN ---
Subjective Complaints: Abdominal Pain Renal Failure: Chronic, End Stage Renal Disease Interval History Had biopsy yesterday. Seen during dialysis today. May be discharged this afternoon. (Gem Terry) Review of Systems General Constitutional: Fatigue, Weight Change (Gem Terry) Gastrointestinal Gastrointestinal: Abdominal Pain, Nausea & Vomiting (Gem Terry) Objective Data Data 06/13/16 06/14/16 19:00 07:00 Intake Total 360 ml Balance 360 ml Intake Oral 360 ml # Voids 2 2 # Bowel Movements 2 2 Vital Signs Date Time Temp Pulse Resp B/P Pulse Ox O2 Delivery O2 Flow Rate FiO2 06/14/16 08:32 96.4 74 16 145/65 96 06/14/16 00:00 97.5 70 20 129/59 95 06/13/16 20:00 97.3 72 20 144/63 97 06/13/16 16:37 06/13/16 16:29 68 94 06/13/16 16:15 68 18 126/53 95 06/13/16 16:00 98.4 68 18 126/57 95 06/13/16 15:45 98.4 68 18 127/55 88 06/13/16 12:00 96.9 73 20 119/57 95 (Gem Terry) -: 06/14/16 0700 06/14/16 0700 Physical Exam General Appearance: Well Developed, Well Nourished, No Acute Distress, Comfortable, Malnourished (Gem Terry) Throat Throat Exam: Oral Mucosa [place] & Moist (Gem Terry) Neck Neck Exam: Neck Supple, Trachea Midline (Gem Terry) Pulmonary Resp Exam: Clear Bilaterally, Breath Sounds Equal, No Distress (Gem Terry) Cardiology CV Exam: Regular, Normal Sinus Rhythm (Gem Terry) Gastrointestinal/Abdomen GI Exam: Soft, Non-Tender, Bowel Sounds Present (Gem Terry) Genitourinary Exam: Clear Urine (Gem Terry) Musculoskeletal MS Exam: Joints Intact, Normal Tone (Gem Terry) Integumentary Skin Exam: Intact (Gem Terry) Extremeties Extremities Exam: No Edema (Gem Terry) Neurologic Neuro Exam: Alert, Awake, Oriented, Speech Clear, Moving All Extremities ( Gem Terry) Assessment/Plan Discussed Condition With: Patient Assessment Summary: End Stage Renal Disease Problem List: (1) ESRD (end stage renal disease) Plan: Seen during dialysis today on a 3K, 350 BFR, goal 3L Dialysis will be continued MWF. Can resume outpatient HD if discharged No acute electrolyte concerns Avoid Gadolinium. Avoid IVF renal diet with no protein restriction (2) Right upper quadrant pain Plan: Suspected hepatocellular CA s/p biopsy, will follow up with oncology after discharge, Dr. Mendes (3) Type 2 diabetes mellitus Plan: insulin coverage as needed. Maintain blood glucose between 140 and 180. (4) Hypertension Plan: BP is acceptable. (5) Anemia Plan: Hemoglobin is acceptable. epogen not required (6) Metabolic bone disease Plan: Monitor phosphorus periodically. Continue Renvela. Plan she is cleared for discharge from renal perspective (Gem Terry) Plan patient was seen and examined during dialysis. Patient has an appointment with Dr. Mendes. (Jhon Vallecillo MD) Gem Terry June 14, 2016 11:10 Jhon Vallecillo MD June 15, 2016 10:28
[2016-06-14] MEDS: SEVELAMER CARBONATE 800 MG TAB PO SCH ×3 (11:54→18:04)
[2016-06-14] MEDS: ONDANSETRON HCL 4 MG/2 ML VIAL IV PRN (11:58)
--- NOTE | 2016-06-14 12:26 | HHI.FF ---
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 My clinical findings support the need for the requested home health care services because: Deconditioned w/ increased weakness Need for psychosocial assistance High risk of falls I certify that my clinical findings support that this patient is homebound because: Unsafe to leave home unassisted Need for psychosocial assistance Nurys Garner June 14, 2016 12:26
[2016-06-14] MEDS: ESCITALOPRAM OXALATE 10 MG TAB PO SCH (13:35)
[2016-06-14] MEDS: METOLAZONE 5 MG TAB PO SCH (13:35)
[2016-06-14] MEDS: BUMETANIDE 1 MG TAB PO SCH ×2 (13:35→21:03)
[2016-06-14] MEDS: buPROPion HCL 150 MG SUSTAINED RELEASE TAB PO SCH (13:36)
[2016-06-14] MEDS: PANTOPRAZOLE SOD 20 MG DELAYED RELEASE TAB PO SCH (13:36)
[2016-06-14] MEDS: LOSARTAN 50 MG TAB PO SCH (13:36)
--- NOTE | 2016-06-14 15:18 | HHI.PR ---
Subjective Remarks minimal abd. pain tolerating diet well no n/v no cp no sob son is coming from [place] and wants dc plan to be discussed with him " I can make my own decisions" wants to follow up as OP with Dr. Mendes anxious to go home Objective Objective Results - Vital Signs Date Time Temp Pulse Resp B/P Pulse Ox O2 Delivery O2 Flow Rate FiO2 06/14/16 08:32 96.4 74 16 145/65 96 06/14/16 00:00 97.5 70 20 129/59 95 06/13/16 20:00 97.3 72 20 144/63 97 06/13/16 16:37 06/13/16 16:29 68 94 06/13/16 16:15 68 18 126/53 95 06/13/16 16:00 98.4 68 18 126/57 95 06/13/16 15:45 98.4 68 18 127/55 88 I/O 06/13/16 06/13/16 06/13/16 06/14/16 06/14/16 06/14/16 07:00 15:00 23:00 07:00 15:00 23:00 Intake Total 400 ml 240 ml 120 ml 160 ml Output Total 1500 ml Balance 400 ml 240 ml 120 ml -1340 ml Intake Oral 400 ml 240 ml 120 ml IV Total 160 ml Hemodialysis 1500 ml # Voids 1 2 1 1 1 # Bowel Movements 0 2 1 1 1 Result Diagram: 06/14/16 0700 06/14/16 0700 Imaging Last Impressions Abdomen/Pelvis CT 06/09/16 0000 Signed Impressions: Service Date/Time: Thursday, June 09, 2016 14:28 - CONCLUSION: 1. Small calcified gallstones with no wall thickening or inflammatory change. 2. Mild diverticulosis with no inflammatory change or obstruction. 3. No renal calculi or hydronephrosis Jani Delgado MD Other Results Laboratory Tests Test 06/14/16 07:00 White Blood Count 6.0 Red Blood Count 4.45 Hemoglobin 11.7 Hematocrit 36.8 Mean Corpuscular Volume 82.6 Mean Corpuscular Hemoglobin 26.2 Mean Corpuscular Hemoglobin 31.8 Concent Red Cell Distribution Width 18.0 Platelet Count 196 Mean Platelet Volume 10.5 Activated Partial 76.5 Thromboplast Time Sodium Level 139 Potassium Level 4.2 Chloride Level 96 Carbon Dioxide Level 31.2 Anion Gap 12 Blood Urea Nitrogen 60 Creatinine 6.51 Estimat Glomerular Filtration 8 Rate Random Glucose 165 Calcium Level 8.9 ROS General: No: Fatigue, Weakness HEENT: No: Sore Throat, Dysphagia Cardiac: No: Chest Pain, Edema, Palpitations Pulmonary: No: Cough, SOB, Wheezing GI: Abdominal Pain /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 SKIN: No rashes, ecchymoses or lesions. Cool and dry. HEAD: Atraumatic. Normocephalic. No temporal or scalp tenderness. EYES: Pupils equal round and reactive. Extraocular motions intact. No scleral icterus. No injection or drainage. ENT: Nose without bleeding, purulent drainage or septal hematoma. Throat without erythema, tonsillar hypertrophy or exudate. Uvula midline. Airway patent. NECK: Trachea midline. No JVD or lymphadenopathy. Supple, nontender, no meningeal signs. CARDIOVASCULAR: Regular rate and rhythm without murmurs, gallops, or rubs. Right arm AV fistula with positive bruit and thrill. RESPIRATORY: Clear to auscultation. Breath sounds equal bilaterally. No wheezes , rales, or rhonchi. GASTROINTESTINAL: Abdomen soft, right upper quadrant tenderness, nondistended. No hepato-splenomegaly, or palpable masses. No guarding. MUSCULOSKELETAL: Extremities without clubbing, cyanosis, or edema. No joint tenderness, effusion, or edema noted. No calf tenderness. Negative Homans sign bilaterally. NEUROLOGICAL: Awake, alert oriented 3. No focal deficit Urinary Catheter: No Vascular Central Line Catheter: No A/P Diagnosis: (1) Right upper quadrant pain (2) ESRD (end stage renal disease) (3) Diabetes mellitus (4) COPD (chronic obstructive pulmonary disease) (5) Depression (6) Hyperlipidemia (7) Hepatitis C (8) Anorexia (9) Weight loss (10) Portal vein thrombosis (11) Liver masses Assessment and Plan 75-year-old elderly black female presented to the emergency room with right upper quadrant pain radiating to back, associated with nausea, vomiting, anorexia, weight loss. History of gallstones and liver lesions, currently undergoing workup. 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 In addition to echogenic masses were noted in the liver. Abd. pain, no evidence of cholecystitis -appreciate gen surgery input, no intervention at this time. -pain has improved, tolerating diet well. -continue with supportive care Liver masses, possible malignancy. Patient currently undergoing workup by gastroenterology, has been referred to oncology Dr. Mendes. -S/P liver bx, 06/13, results pending. -Tumor markers elevated -appreciate Dr. Pickard's input, based on CT findings and tumor markers consistent with multifocal HCC. Unfortunately she is not a candidate for systemic chemotherapy or Nexavar because of her renal failure. Hospice recommended. Pt. wants to discuss with Dr. Mendes, has appointment this . Portal vein thrombosis -on Heparin drip -per heme/onc recommendations, Coumadin not a good choice. Recommends to start Low dose Eliquis 2.5 mg po bid -Restart Eliquis 2 hours after Hep gtt is dc Constipation, had BM -continue bowel regimen End-stage renal disease, on dialysis Sunday and Sunday appreciate renal input -cleared for dc Hypertension, stable Continue home medication Type 2 diabetes Accu-Cheks before meals and at bedtime with insulin therapy SCDs for DVT prophylaxis Omeprazole for GI prophylaxis CM consult for DC planning, resume HHC Poor prognosis, pt. not ready transition to hospice. Will transition to Eliquis today, monitor overnight. Plan to dc tomorrow D/W RN D/W Dr. Garvin D/W pt This patient was seen by myself and Dr. Garvin, this note is written on his behalf Problem Qualifiers (1) Diabetes mellitus: (2) COPD (chronic obstructive pulmonary disease): Qualified Code: J44.9 - Chronic obstructive pulmonary disease, unspecified COPD type (3) Depression: Qualified Code: F32.9 - Depression, unspecified depression type (4) Hyperlipidemia: Qualified Code: E78.5 - Hyperlipidemia, unspecified hyperlipidemia type (5) Hepatitis C: Qualified Code: B18.2 - Chronic hepatitis C without hepatic coma Nurys Garner June 14, 2016 15:17
[2016-06-14 15:29] LABS: APTT (PATIENT) 34.9 SEC (24.3-30.1)
[2016-06-14 16:00] VITALS: BP 159/66; PULSE 80; RESP 20; TEMP 97.6; O2SAT 95
[2016-06-14] MEDS: APIXABAN 2.5 MG TABLET PO SCH (21:04)
[2016-06-14 21:13] VITALS: BP 121/54; PULSE 79; RESP 18; TEMP 98.5; O2SAT 97
[2016-06-15] VITALS: BP 126/60; PULSE 75; RESP 13; TEMP 98.3; O2SAT 98
[2016-06-15 04:00] VITALS: BP 129/59; PULSE 77; RESP 14; TEMP 99; O2SAT 98
[2016-06-15] MEDS: INSULIN ASPART SUPPLEMENTAL SCALE SQ SCH (06:28)
--- NOTE | 2016-06-15 08:11 | PD.ONC.PN ---
Subjective Subjective Remarks no problems with eliquis started last night. no new c/io wamts to go home today. Objective Data Date Time Temp Pulse Resp B/P Pulse Ox O2 Delivery O2 Flow Rate FiO2 06/15/16 04:00 99.0 77 14 129/59 98 06/15/16 00:00 98.3 75 13 126/60 98 06/14/16 21:13 98.5 79 18 121/54 97 06/14/16 16:00 97.6 80 20 159/66 95 06/14/16 08:32 96.4 74 16 145/65 96 Result Diagram: 06/14/16 0700 06/14/16 0700 Laboratory Results Laboratory Tests Test 06/14/16 14:42 Activated Partial 34.9 SEC Thromboplast Time Administered Medications Medications (Trade) Dose Ordered Sig/Merna Route PRN Reason Start Time Stop Time Status Last Admin Dose Admin Sodium Chloride 2 ml 2 ml BID IV FLUSH 06/09/16 21:00 06/14/16 21:00 Sodium Chloride (NS 1000 ml Inj) 1,000 ml @ 0 mls/hr Q0M PRN IV For Prime & Rinse Back 06/09/16 16:42 06/12/16 10:56 Ondansetron HCl (Zofran Inj) 4 mg UNSCH PRN IV WITH DIALYSIS 06/09/16 16:45 06/14/16 11:58 Gelatin (Gelfoam 12 Mm/7 Mm Top) 1 foam UNSCH PRN TOP SEE LABEL COMMENTS 06/09/16 16:45 06/12/16 10:57 Morphine Sulfate (Morphine Inj) 2 mg Q3H PRN IV PUSH pain 5 to 10 06/09/16 17:45 06/09/16 22:27 Amlodipine Besylate (Norvasc) 10 mg DAILY PO 06/10/16 09:00 06/14/16 13:35 Bumetanide (Bumetanide) 2 mg BID PO 06/09/16 21:00 06/14/16 21:03 Bupropion HCl (Wellbutrin Sr) 150 mg DAILY PO 06/10/16 09:00 06/14/16 13:36 Escitalopram Oxalate (Lexapro) 10 mg DAILY PO 06/10/16 09:00 06/14/16 13:35 Losartan Potassium (Cozaar) 100 mg DAILY PO 06/10/16 09:00 06/14/16 13:36 Metolazone (Zaroxolyn) 5 mg DAILY PO 06/10/16 09:00 06/14/16 13:35 Ropinirole HCl (Requip) 2 mg HS PO 06/09/16 21:00 06/14/16 21:04 Pantoprazole Sodium (Protonix) 20 mg DAILY PO 06/10/16 09:00 06/14/16 13:36 Sevelamer Carbonate (Renvela) 2,400 mg TID PO 06/09/16 18:00 06/14/16 18:04 Acetaminophen/ Hydrocodone Bitart (Morgan 5-325 Mg) 1 tab Q6H PRN PO PAIN SCALE 5 TO 10 06/10/16 16:30 06/13/16 13:25 Magnesium Hydroxide (Milk Of Jermain Diggs) 30 ml DAILY PRN PO CONSTIPATION 06/12/16 10:45 06/12/16 22:42 Apixaban (Eliquis) 2.5 mg BID PO 06/14/16 21:00 06/14/16 21:04 Objective Remarks GENERAL: Well-nourished, well-developed patient. SKIN: Warm and dry. HEAD: Normocephalic. EYES: No scleral icterus. No injection or drainage. NECK: Supple, trachea midline. No JVD or lymphadenopathy. LYMPHATIC: No adenopathy. CARDIOVASCULAR: Regular rate and rhythm without murmurs. RESPIRATORY: Breath sounds equal bilaterally. No accessory muscle use. GASTROINTESTINAL: Abdomen soft, RUQ tender, nondistended. EXTREMITIES: No cyanosis, or edema. . NEUROLOGICAL: No obvious focal deficit. Awake, alert, and oriented x3. Assessment/Plan Problem List: (1) Liver masses Status: Acute Plan: 06/15 Path will be ready later today. Ok to d/c . Will see Dr Mendes today at 1PM sign off. Available prn. 06/14 s/p Liver mass bx yesterday. Path is still pending. 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 She is not a candidate for any treatment. My advice is hospice. She has appt with DR Mendes tomorrow at 1 PM. She does not want to miss the appt. OK to d/c in am. 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 Unfortunately she is not a candidate for systemic chemotherapy or Nexavar because of her renal failure. we have recommended hospice to the patient. She has an appointment with Dr. Mendes this and would like to discuss with him. --gallbladder ultrasound showed the liver is enlarged with the clot identified in the portal vein. Two echogenic masses are seen in the liver as well. --CT abdomen and pelvis without contrast which did not show any liver masses. The liver is homogeneous, no dilatation noted. Small calcified gallstones are noted. --AFP significantly elevated --CA 19-9 slightly elevated (2) Portal vein thrombosis Status: Acute Plan: 06/15 Eliquis started last night. No problems so far. 06/14 Start elquis 2.5 mg Po BID 06/13: after biopsy, start low dose Eliquis 2.5mg PO BID. Coumadin is not a good choice due to multiple liver masses. ( difficult to maintain therapeutic INR). Assessment 75y/o with portal vein thrombosis and possible liver masses. --end-stage renal disease (HD MWF) --history of hypertension, hypercholesterolemia, CVA, type 2 diabetes mellitus. --h/o Congestive heart failure, Coronary artery disease, Hepatitis C, COPD, Giancarlo Pickard MD June 15, 2016 08:11
[2016-06-15 09:12] VITALS: BP 148/66; PULSE 90; RESP 18; TEMP 97.9; O2SAT 96
[2016-06-15] MEDS: SEVELAMER CARBONATE 800 MG TAB PO SCH (09:13)
[2016-06-15] MEDS: BUMETANIDE 1 MG TAB PO SCH (09:13)
[2016-06-15] MEDS: PANTOPRAZOLE SOD 20 MG DELAYED RELEASE TAB PO SCH (09:14)
[2016-06-15] MEDS: SODIUM CHLORIDE 0.9% FLUSH 10 ML FLUSH IV FLUSH SCH (09:14)
[2016-06-15] MEDS: METOLAZONE 5 MG TAB PO SCH (09:14)
[2016-06-15] MEDS: ESCITALOPRAM OXALATE 10 MG TAB PO SCH (09:14)
[2016-06-15] MEDS: APIXABAN 2.5 MG TABLET PO SCH (09:14)
[2016-06-15] MEDS: buPROPion HCL 150 MG SUSTAINED RELEASE TAB PO SCH (09:14)
[2016-06-15] MEDS: LOSARTAN 50 MG TAB PO SCH (09:14)
[2016-06-15] MEDS ORDERED: APIX2.5T PO (10:40)
--- NOTE | 2016-06-15 10:40 | HHI.DCPOC ---
Discharge Care Plan Diagnosis: (1) Right upper quadrant pain (2) Portal vein thrombosis (3) Liver masses Your Health Problems Are: Anxiety Appetite Changes Goals to Promote Your Health * To prevent worsening of your condition and complications * To maintain your health at the optimal level Directions to Meet Your Goals Take your medications as prescribed Follow your dietary instruction Follow activity as directed Keep your appointments as scheduled Take your immunizations and boosters as scheduled If your symptoms worsen call your PCP, if no PCP go to Urgent Care Center or Emergency Room Smoking is Dangerous to Your Health. Avoid second hand smoke Call the 24-hour hour crisis hotline for domestic abuse at Nur[facility] Garner. [facility] June 15, 2016 10:40
--- NOTE | 2016-06-15 10:42 | HHI.DS ---
Discharge Summary Admission Date June 12, 2016 at 12:01 Discharge Date: June 15, 2016 Admitting Diagnosis right upper quadrant pain, rule out cholecystitis (1) Right upper quadrant pain (2) ESRD (end stage renal disease) (3) Diabetes mellitus (4) COPD (chronic obstructive pulmonary disease) (5) Depression (6) Hyperlipidemia (7) Hepatitis C (8) Anorexia (9) Weight loss (10) Portal vein thrombosis (11) Liver masses CBC/BMP: 06/14/16 0700 06/14/16 0700 Significant Findings Laboratory Tests Test 06/12/16 06/13/16 06/14/16 06/14/16 20:28 02:56 07:00 14:42 Activated Partial 49.4 SEC 43.7 SEC 76.5 SEC 34.9 SEC Thromboplast Time (24.3-30.1) (24.3-30.1) (24.3-30.1) (24.3-30.1) Mean Corpuscular Hemoglobin 26.2 PG (27.0-34.0) Mean Corpuscular Hemoglobin 31.8 % Concent (32.0-36.0) Red Cell Distribution Width 18.0 % (11.6-17.2) Chloride Level 96 MEQ/L (98-107) Blood Urea Nitrogen 60 MG/DL (7-18) Creatinine 6.51 MG/DL (0.50-1.00) Estimat Glomerular Filtration 8 ML/MIN (>89) Rate Random Glucose 165 MG/DL (74-106) Imaging Last Impressions Liver Biopsy CT 06/13/16 1421 Signed Impressions: Service Date/Time: Monday, June 13, 2016 15:08 - CONCLUSION: Uncomplicated CT guided biopsy. Kt Stern MD Abdomen CT 06/10/16 0000 Signed Impressions: Service Date/Time: Saturday, June 11, 2016 17:17 - CONCLUSION: 1. Slight bibasilar atelectasis and/or infiltrate is seen. 2. Cholelithiasis. 3. There is fatty infiltration of the liver inhomogeneously with multiple enhancing masses and may consider abdominal MRI with intravenous contrast further characterized and exclude metastatic disease. Svetlana Floyd MD Gall Bladder Ultrasound 06/09/16 0000 Signed Impressions: Service Date/Time: Thursday, June 09, 2016 11:27 - CONCLUSION: Abnormal ultrasound as described above. CT scan with IV contrast is suggested. Remberto Can MD FACR Abdomen/Pelvis CT 06/09/16 0000 Signed Impressions: Service Date/Time: Thursday, June 09, 2016 14:28 - CONCLUSION: 1. Small calcified gallstones with no wall thickening or inflammatory change. 2. Mild diverticulosis with no inflammatory change or obstruction. 3. No renal calculi or hydronephrosis Jani Delgado MD Hospital Course This is a 75 -year-old elderly black female with significant past medical history of hypertension, hyperlipidemia, CVA, type 2 diabetes, end-stage renal disease on dialysis Sunday. Patient presented to the emergency room complaining of right upper abdomen pain. Patient indicates that the symptoms started around Sunday, she describes this as a 'soreness', sometimes it is intense up to level 10. Pain radiates from right upper quadrant around to her back, worse with deep breathing and improves with rest. It is not exacerbated by any food. Patient endorses that she has been loosing weight, she was told by her PCP that she lost approximately 9 pounds in one month. She also has had very poor appetite, food just doesn't taste very well. She has also had a few episodes of nausea vomiting, had one today with white color emesis. Her bowels are moving regularly, no blood in the stool. Endorses that she follows up with Dr. Barron. She was in to see him approximately a week ago as she has been followed for 3 liver lesions that could possibly be cancer. She was also told by him that she has gallstones. She has been referred to follow-up with Dr. Mendes for possible chemotherapy or radiation. She denies having a liver biopsy. Indicates that she had possibly a CT of the abdomen and an ultrasound at [facility]. She's noted some shortness of breath, no chest pain. No recent fever, has chills. In the emergency room, patient was evaluated. Total bili was 0.03, AST 55, ALT 35. Alkaline phosphatase 270. CBC essentially unremarkable except for mild anemia, hemoglobin 11.1, hematocrit 34.3. Initial ultrasound of the gallbladder was completed and recommended abdomen pelvis CT. Results as noted below. Last Impressions Gall Bladder Ultrasound 06/09/16 0000 Signed Impressions: Service Date/Time: Thursday, June 09, 2016 11:27 - CONCLUSION: Abnormal ultrasound as described above. CT scan with IV contrast is suggested. Remberto Can MD FACR Abdomen/Pelvis CT 06/09/16 0000 Signed Impressions: Service Date/Time: Thursday, June 09, 2016 14:28 - CONCLUSION: 1. Small calcified gallstones with no wall thickening or inflammatory change. 2. Mild diverticulosis with no inflammatory change or obstruction. 3. No renal calculi or hydronephrosis Jani Delgado MD Emergency room physician discussed findings with Dr. Matamoros, he was consulted for possible cholecystitis. Her pain had lessened, she had received morphine. Patient was admitted for further evaluation and treatment. (1) Right upper quadrant pain (2) ESRD (end stage renal disease) (3) Diabetes mellitus (4) COPD (chronic obstructive pulmonary disease) (5) Depression (6) Hyperlipidemia (7) Hepatitis C (8) Anorexia (9) Weight loss (10) Portal vein thrombosis (11) Liver masses During the course of the hospitalization, the following events took place: 75-year-old elderly black female presented to the emergency room with right upper quadrant pain radiating to back, associated with nausea, vomiting, anorexia, weight loss. History of gallstones and liver lesions, currently undergoing workup. 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 In addition to echogenic masses were noted in the liver. Patient admitted, put on appropriate pain management. Surgery, nephrology and oncology were consulted. Abd. pain, no evidence of cholecystitis -appreciated gen surgery input, no intervention at this time. -pain improved, tolerated diet well. -continued with supportive care Liver masses, possible malignancy. Patient was undergoing workup by gastroenterology, had been referred to oncology Dr. Mendes. -tumor markers ordered, Dr. Pickard evaluated. Recommendations were made for liver bx. -S/P liver bx, 06/13, results pending. -Tumor markers elevated -appreciated Dr. Pickard's input, based on CT findings and tumor markers consistent with multifocal HCC. Unfortunately she was not a candidate for systemic chemotherapy or Nexavar because of her renal failure. Hospice recommended. Pt. wanted to discuss with Dr. Mendes, had appointment for 06/15/2016 Pt. cleared by heme/onc for discharge. CT findings of Portal vein thrombosis secondary to malignancy: -pt. initially put on heparin gtt. -per heme/onc recommendations, Coumadin not a good choice. Eliquis recommended -discontinued Heparin, started on Eliquis 2.5 mg po bid. Pt. tolerated well Had Constipation -put on bowel regimen -had BM End-stage renal disease, on dialysis Sunday and Sunday appreciated renal input -continued on HD -cleared for dc Hypertension, stable Continued home medication Type 2 diabetes Accu-Cheks before meals and at bedtime with insulin therapy SCDs for DVT prophylaxis Omeprazole for GI prophylaxis CM consult for DC planning, C arranged Poor prognosis, pt. not ready transition to hospice. Discharge plan discussed with son and pt. at length, updated on status and condition.Questions answered in detail. Advised to speak to pt. and siblings to discuss advance directives, goals of care. Stable for dc home F/U Dr. Mendes, has appointment today F/U PCP, nephrology Diet-renal Activity-as tolerated, recommended no driving. Pt Condition on Discharge: Stable Discharge Disposition: Disch w/ Home Health Serv Discharge Instructions DIET: Follow Instructions for: Heart Healthy Diet Activities you can perform: Weight Bearing as Marybeth Follow up Referrals: Nephrology Oncology with DR. MENDES PCP Follow-up New Medications: Apixaban (Eliquis) 2.5 Mg Tab 2.5 MG PO BID Blood Clot Prevention #60 Ref 1 TAB Continued Medications: Amlodipine (Amlodipine) 10 Mg Tab 10 MG PO DAILY Blood Pressure Management #[address] (Aspirin Adult Low Strength) 81 Mg Tabdr 81 MG PO DAILY TAB Atorvastatin (Atorvastatin) 40 Mg Tab 40 MG PO HS Cholesterol Management #30 Ref 0 TAB Bumetanide (Bumetanide) 2 Mg Tab 2 MG PO BID Ref 0 TAB Bupropion HCl ER 24 HR (Wellbutrin Xl 24 HR) 150 Mg Tab 150 MG PO DAILY Control Depression Ref 0 TAB Clonidine 168 HR Patch (Clonidine 168 HR Patch) 0.2 Mg/24 Hr Patch 1 PATCH T-DERMAL WEEKLY Sundays Blood Pressure Management #4 Ref 0 PATCH Escitalopram (Lexapro) 10 Mg Tab 10 MG PO DAILY #30 Ref 0 TAB Famotidine (Pepcid) 20 Mg Tab 20 MG PO BID #60 Ref 0 TAB Insulin Glargine Inj (Lantus Inj) 100 Unit/Ml Inj 20 UNITS SQ HS Insulin Lispro (Human) Inj (Humalog Inj) 1,000 Unit/10 Ml Vial 3 UNITS SQ ACHS Blood Sugar Management #1 Ref 0 VIAL Losartan (Losartan) 100 Mg Tab 100 MG PO DAILY Blood Pressure Management #30 Ref 0 TAB Metolazone (Metolazone) 5 Mg Tab 5 MG PO DAILY #30 Ref 0 TAB Nitroglycerin SL (Nitroglycerin SL) 0.4 Mg Subl 0.4 MG SL DIRECTED ONE TABLET UNDER THE TONGUE NEEDED FOR CHEST PAIN, MAY REPEAT EVERY FIVE MINUTES FOR A TOTAL OF 3 DOSES OR CALL 911 IF NO RELIEF PRN CHEST PAIN #100 Ref 0 TAB.SL Omeprazole (Omeprazole) 20 Mg Tab 20 MG PO DAILY #30 Ref 0 TAB Ropinirole (Requip) 2 Mg Tab 2 MG PO HS #30 Ref 0 TAB Sevelamer Carbonate Liq (Renvela Liq) 2.4 Gm Pack 2.4 GM PO TID Mix 1 packet (2.4gm) in liquid Control phosphorus levels #90 Ref 0 PKT Tramadol (Tramadol) 50 Mg Tab 50 MG PO BID PRN PAIN Ref 0 TAB Nurys Garner June 15, 2016 10:42
--- NOTE | 2016-06-15 10:58 | HHI.PR ---
Subjective Remarks No abdominal pain Tolerating diet well No chest pain Or shortness of breath Afebrile Anxious to go home, her son is in the room Has appointment with Dr. Mendes this afternoon Objective Objective Results - Vital Signs Date Time Temp Pulse Resp B/P Pulse Ox O2 Delivery O2 Flow Rate FiO2 06/15/16 09:12 97.9 90 18 148/66 96 06/15/16 04:00 99.0 77 14 129/59 98 06/15/16 00:00 98.3 75 13 126/60 98 06/14/16 21:13 98.5 79 18 121/54 97 06/14/16 16:00 97.6 80 20 159/66 95 I/O 06/14/16 06/14/16 06/14/16 06/15/16 06/15/16 06/15/16 07:00 15:00 23:00 07:00 15:00 23:00 Intake Total 120 ml 160 ml Output Total 1500 ml Balance 120 ml -1340 ml Intake Oral 120 ml IV Total 160 ml Hemodialysis 1500 ml # Voids 1 4 # Bowel Movements 1 4 0 Result Diagram: 06/14/16 0700 06/14/16 0700 Imaging Last Impressions Abdomen/Pelvis CT 06/09/16 0000 Signed Impressions: Service Date/Time: Thursday, June 09, 2016 14:28 - CONCLUSION: 1. Small calcified gallstones with no wall thickening or inflammatory change. 2. Mild diverticulosis with no inflammatory change or obstruction. 3. No renal calculi or hydronephrosis Jani Delgado MD Other Results Laboratory Tests Test 06/14/16 14:42 Activated Partial 34.9 Thromboplast Time ROS General: Weakness HEENT: No: Sore Throat, Dysphagia Cardiac: No: Chest Pain, Edema, Palpitations Pulmonary: No: Cough, SOB, Wheezing GI: Abdominal Pain /EDGE SETTER: No: Dysuria, Urgency Neuro/MS: No: Lightheaded, Confusion Psych: No: Anxiety, Depression Skin: No: Itching, Rash Physical Exam Physical Exam GENERAL: This is a well-nourished, well-developed patient, in no apparent distress. SKIN: No rashes, ecchymoses or lesions. Cool and dry. HEAD: Atraumatic. Normocephalic. No temporal or scalp tenderness. EYES: Pupils equal round and reactive. Extraocular motions intact. No scleral icterus. No injection or drainage. ENT: Nose without bleeding, purulent drainage or septal hematoma. Throat without erythema, tonsillar hypertrophy or exudate. Uvula midline. Airway patent. NECK: Trachea midline. No JVD or lymphadenopathy. Supple, nontender, no meningeal signs. CARDIOVASCULAR: Regular rate and rhythm without murmurs, gallops, or rubs. Right arm AV fistula with positive bruit and thrill. RESPIRATORY: Clear to auscultation. Breath sounds equal bilaterally. No wheezes , rales, or rhonchi. GASTROINTESTINAL: Abdomen soft, right upper quadrant tenderness, nondistended. No hepato-splenomegaly, or palpable masses. No guarding. MUSCULOSKELETAL: Extremities without clubbing, cyanosis, or edema. No joint tenderness, effusion, or edema noted. No calf tenderness. Negative Homans sign bilaterally. NEUROLOGICAL: Awake, alert oriented 3. No focal deficit Urinary Catheter: No Vascular Central Line Catheter: No A/P Diagnosis: (1) Right upper quadrant pain (2) ESRD (end stage renal disease) (3) Diabetes mellitus (4) COPD (chronic obstructive pulmonary disease) (5) Depression (6) Hyperlipidemia (7) Hepatitis C (8) Anorexia (9) Weight loss (10) Portal vein thrombosis (11) Liver masses Assessment and Plan 75-year-old elderly black female presented to the emergency room with right upper quadrant pain radiating to back, associated with nausea, vomiting, anorexia, weight loss. History of gallstones and liver lesions, currently undergoing workup. 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 In addition to echogenic masses were noted in the liver. Abd. pain, no evidence of cholecystitis -appreciate gen surgery input, no intervention at this time. -pain has improved, tolerating diet well. -continue with supportive care Liver masses, possible malignancy. Patient currently undergoing workup by gastroenterology, has been referred to oncology Dr. Mendes. -S/P liver bx, 06/13, results pending. -Tumor markers elevated -appreciate Dr. Pickard's input, based on CT findings and tumor markers consistent with multifocal HCC. Unfortunately she is not a candidate for systemic chemotherapy or Nexavar because of her renal failure. Hospice recommended. Pt. wants to discuss with Dr. Mendes, has appointment today Portal vein thrombosis -per heme/onc recommendations, Coumadin not a good choice. Eliquis recommended -off Heparin, on Eliquis 2.5 mg po bid. Constipation, had BM -continue bowel regimen End-stage renal disease, on dialysis Sunday and Sunday appreciate renal input -cleared for dc Hypertension, stable Continue home medication Type 2 diabetes Accu-Cheks before meals and at bedtime with insulin therapy SCDs for DVT prophylaxis Omeprazole for GI prophylaxis CM consult for DC planning, C arranged Poor prognosis, pt. not ready transition to hospice. D/W son at length, updated on status and condition.Questions answered in detail. Advised to speak to pt. and siblings to discuss advance directives, goals of care. Stable for dc home F/U Dr. Mendes, has appointment today F/U PCP, nephrology Diet-renal Activity-as tolerated, recommended no driving. D/W RN D/W Dr. Garvin D/W pt and son This patient was seen by myself and Dr. Garvin, this note is written on his behalf Discharge Planning 45 minutes Problem Qualifiers (1) Diabetes mellitus: (2) COPD (chronic obstructive pulmonary disease): Qualified Code: J44.9 - Chronic obstructive pulmonary disease, unspecified COPD type (3) Depression: Qualified Code: F32.9 - Depression, unspecified depression type (4) Hyperlipidemia: Qualified Code: E78.5 - Hyperlipidemia, unspecified hyperlipidemia type (5) Hepatitis C: Qualified Code: B18.2 - Chronic hepatitis C without hepatic coma Nurys Garner June 15, 2016 10:58
[2016-06-15] MEDS ORDERED: HYDR-3516 PO (11:30)
--- NOTE | 2016-06-15 12:04 | HHI.NPPN ---
Subjective Complaints: Abdominal Pain Renal Failure: Chronic, End Stage Renal Disease Interval History Dialyzed yesterday. Preparing for discharge today. (Gem Terry) Review of Systems General Constitutional: Fatigue, Weight Change (Gem Terry) Gastrointestinal Gastrointestinal: Abdominal Pain, Nausea & Vomiting (Gem Terry) Objective Data Data 06/14/16 06/15/16 19:00 07:00 Intake Total 160 ml Output Total 1500 ml Balance -1340 ml IV Total 160 ml Hemodialysis 1500 ml # Voids 4 # Bowel Movements 4 0 Vital Signs Date Time Temp Pulse Resp B/P Pulse Ox O2 Delivery O2 Flow Rate FiO2 06/15/16 09:12 97.9 90 18 148/66 96 06/15/16 04:00 99.0 77 14 129/59 98 06/15/16 00:00 98.3 75 13 126/60 98 06/14/16 21:13 98.5 79 18 121/54 97 06/14/16 16:00 97.6 80 20 159/66 95 (Gem Terry) -: 06/14/16 0700 06/14/16 0700 Physical Exam General Appearance: Well Developed, Well Nourished, No Acute Distress, Comfortable, Malnourished (Gem Terry) Throat Throat Exam: Oral Mucosa Ortley & Moist (Gem Terry) Neck Neck Exam: Neck Supple, Trachea Midline (Gem Terry) Pulmonary Resp Exam: Clear Bilaterally, Breath Sounds Equal, No Distress (Gem Terry) Cardiology CV Exam: Regular, Normal Sinus Rhythm (Gem Terry) Gastrointestinal/Abdomen GI Exam: Soft, Non-Tender, Bowel Sounds Present (Gem Terry) Genitourinary Exam: Clear Urine (Gem Terry) Musculoskeletal MS Exam: Joints Intact, Normal Tone (Gem Terry) Integumentary Skin Exam: Intact (Gem Terry) Extremeties Extremities Exam: No Edema (Gem Terry) Neurologic Neuro Exam: Alert, Awake, Oriented, Speech Clear, Moving All Extremities ( Gme Terry) Assessment/Plan Discussed Condition With: Patient Assessment Summary: End Stage Renal Disease Problem List: (1) ESRD (end stage renal disease) Plan: 1500 ml UF yesterday Dialysis will be continued MWF. She is to resume outpatient HD tomorrow No acute electrolyte concerns renal diet with no protein restriction stable from renal perspective (2) Right upper quadrant pain Plan: Suspected hepatocellular CA will follow up with oncology after discharge, Dr. Mendes today at 1pm (3) Type 2 diabetes mellitus Plan: insulin coverage as needed. Maintain blood glucose between 140 and 180. (4) Hypertension Plan: BP is acceptable. (5) Anemia Plan: Hemoglobin is acceptable. epogen not required (6) Metabolic bone disease Plan: Monitor phosphorus periodically. Continue Renvela. (Gem Terry) Plan patient was seen and examined. Agree with above assessment and plan. (Jhon Vallecillo MD) Gem Terry June 15, 2016 12:04 Jhon Vallecillo MD June 15, 2016 20:25
[2016-06-16] MEDS ORDERED: REMOVE OLD CATAPRES (CLONIDINE) PATCH T-DERMAL SCH (20:00)
== END 2016-06-15 12:08 | disposition home health service (06) | DRG 435 ==
LOC: NEPE 10:21 → UNDOADMIN 15:57 → NEDA 15:57 → INTOOBSV 16:54 → NEDA 16:54 → N05B 21:02 → OBSVTOIN 06-12 12:01
PROVIDERS: ADMIT Specialist; ATTEND Specialist
PROC: 0FB03ZX Excision of Liver, Percutaneous Approach, Diagnostic (ICD-10-PCS; principal; 2016-06-13)
PROC: 5A1D60Z (ICD-10-PCS; 2016-06-13)
DX: C22.0 Liver cell carcinoma (principal); I81 Portal vein thrombosis; I13.2 Hypertensive heart and chronic kidney disease with heart failure and with stage 5 chronic kidney disease, or end stage renal disease; N18.6 End stage renal disease; D64.9 Anemia, unspecified; E11.22 Type 2 diabetes mellitus with diabetic chronic kidney disease; B18.2 Chronic viral hepatitis C; E78.5 Hyperlipidemia, unspecified; I50.9 Heart failure, unspecified; E88.89 Other specified metabolic disorders; I25.10 Atherosclerotic heart disease of native coronary artery without angina pectoris; J44.9 Chronic obstructive pulmonary disease, unspecified; K21.9 Gastro-esophageal reflux disease without esophagitis; K57.90 Diverticulosis of intestine, part unspecified, without perforation or abscess without bleeding; K59.00 Constipation, unspecified; K80.20 Calculus of gallbladder without cholecystitis without obstruction; Z86.73 Personal history of transient ischemic attack (TIA), and cerebral infarction without residual deficits; Z87.891 Personal history of nicotine dependence; Z99.2 Dependence on renal dialysis
CPT/HCPCS: 47000; 74160; 74176; 76705; 77012; 80048; 80053; 82105; 82378; 82948; 83690; 84100; 85025; 85027; 85610; 85730; 86301; 86304; 88307; 88341; 88342; 90935; 96361; 96374; 96375; G0378; J1644; J1815; J2250; J2270; J2405; J3010; J7030; Q9963; Q9967

== ENCOUNTER 2016-06-27 10:37 | Emergency (ER) | payer MEDICARE, OTHER ==
[~2016-06-27] VITALS: Ht 160 cm; Wt 75.0 kg
[~2016-06-27 10:37] MED LIST changes: -AMLO10 PO; +AMLO10TA2 PO; +APIX2.5T PO; -ATOR40TA PO; +ATOR40TA16 PO; +BUME2TAB PO; +BUPR150XL PO; -CARV25TA PO; -CLON.3T TD; +CLON0.2D T-DERMAL; -ESCI10TA PO; +FAMO1TAB37 PO; -FAMO20TA2 PO; -FURO80 PO; +HUMALOG SQ; +HYDR-3516 PO; -HYDRA50 PO; -ISOS60TA PO; -LABE200T2 PO; +LANTUS2P SQ; -LEVEMIR SQ; +LEXA10TA PO; -LORA-392 PO; -METO5 PO; +METO5TAB3 PO; +NITR1SUB3 SL; -NOVOLOGP2 SQ; +RENV2.4P PO; +ROPI2 PO; -TRAM100T19 PO
[2016-06-27 10:44] VITALS: BP 174/76; PULSE 76; RESP 18; TEMP 98.5; O2SAT 92
[2016-06-27 11:57] VITALS: O2SAT 94
[2016-06-27 11:58] LABS: AUTOMATED NEUTROPHIL # 3.6 TH/MM3 (1.8-7.7); BASOPHIL # 0.1 TH/MM3 (0-0.2); EOSINOPHIL # 0.1 TH/MM3 (0-0.4); EOSINOPHIL % 2.5 % (0.0-4.0); HEMATOCRIT 38.6 % (35.0-46.0); HEMO FLAGS DIFF FINAL; LYMPH % 24.5 % (9.0-44.0); LYMPHOCYTE # 1.4 TH/MM3 (1.0-4.8); MEAN CELL VOLUME 84.5 FL (80.0-100.0); MEAN CORPUSCULAR HEMOGLOBIN 26.1 PG (27.0-34.0); MEAN CORPUSCULAR HGB CONC 30.9 % (32.0-36.0); MONO % 8.7 % (0.0-8.0); NEUT % 63.3 % (16.0-70.0); PLATELET COUNT 160 TH/MM3 (150-450); RED BLOOD COUNT 4.57 MIL/MM3 (4.00-5.30); RED CELL DISTRIBUTION WIDTH 18.8 % (11.6-17.2); WHITE BLOOD COUNT 5.6 TH/MM3 (4.0-11.0)
--- NOTE | 2016-06-27 12:14 | PD ---
HPI Chief Complaint: Diabetic Time Seen by Provider: 11:40 Travel History International Travel<30 days: No Contact w/Intl Traveler<30days: No Traveled to known affect area: No History of Present Illness HPI Patient is a 75-year-old female presenting to the emergency department for evaluation of elevated blood glucose readings. Patient was visited by home health nurse this morning who attempted to check her blood glucose in the machine read high, EMS was then called and her blood glucose was evaluated greater than 500, at that time patient was sent to the emergency department for evaluation. In triage her blood sugar was 546. Patient states that she took Levemir this morning and 6 units of regular insulin. She denies any fever, chills, nausea, vomiting, chest pain or shortness of breath or dysuria. She has right upper quadrant abdominal tenderness secondary to a liver mass that was diagnosed some time ago but re-evaluated on her last admission. She has a follow-up with Dr. Mendes regarding this. PFSH Past Medical History Hx Anticoagulant Therapy: Yes (ELIQUIS) Anemia: Yes Arthritis: Yes Autoimmune Disease: No Depression: Yes Heart Rhythm Problems: Yes (HEART MURMUR) Cardiac Catheterization: Yes High Cholesterol: Yes Chest Pain: Yes Congestive Heart Failure: Yes Cerebrovascular Accident: Yes Coronary Artery Disease: Yes Diabetes: Yes Dialysis: Yes (Sunday) Gastrointestinal Disorders: Yes (cdiff 2014) GERD: Yes Genitourinary: Yes (end-stage renal disease on dialysis) Hepatitis: Yes (HEP C) Hypertension: Yes Neurologic: Yes (NEUROPATHY HANDS/FEET) Renal Failure: Yes Seizures: Yes Menopausal: Yes Dilation and Curettage (D&C): Yes Past Surgical History AICD: No Arteriovenous Shunt: Yes (RT AV FISTULA) Body Medical Devices: FISTULA IN RIGHT ARM Cardiac Surgery: Yes (heart cath) Eye Surgery: Yes (LOGAN CATARACTS REMOVED, POSSIBLE VITRECTOMY SURGERY) Hysterectomy: Yes Joint Replacement: No Pacemaker: No Tonsillectomy: Yes Social History Alcohol Use: No Tobacco Use: No Substance Use: No Allergies-Medications (Allergen,Severity, Reaction): Coded Allergies: Darvocet-N 100 (Verified Allergy, Severe, 06/27/16) Reported Meds & Prescriptions Reported Meds & Active Scripts Active Hydrocodone-Acetaminophen 5-325 mg Tab 1 Tab PO Q6H PRN Eliquis (Apixaban) 2.5 Mg Tab 2.5 Mg PO BID Reported Requip (Ropinirole HCl) 2 Mg Tab 2 Mg PO HS Renvela Liq (Sevelamer Carbonate) 2.4 Gm Pack 2.4 Gm PO TID Mix 1 packet (2.4gm) in liquid Omeprazole 20 Mg Tab 20 Mg PO DAILY Nitroglycerin SL (Nitroglycerin) 0.4 Mg Subl 0.4 Mg SL DIRECTED PRN ONE TABLET UNDER THE TONGUE NEEDED FOR CHEST PAIN, MAY REPEAT EVERY FIVE MINUTES FOR A TOTAL OF 3 DOSES OR CALL 911 IF NO RELIEF Metolazone 5 Mg Tab 5 Mg PO DAILY Losartan (Losartan Potassium) 100 Mg Tab 100 Mg PO DAILY Lantus Inj (Insulin Glargine) 100 Unit/Ml Inj 20 Units SQ HS Humalog Inj (Insulin Human Lispro) 1,000 Unit/10 Ml Vial 3 Units SQ ACHS Pepcid (Famotidine) 20 Mg Tab 20 Mg PO BID Lexapro (Escitalopram Oxalate) 10 Mg Tab 10 Mg PO DAILY Wellbutrin Xl 24 HR (Bupropion HCl) 150 Mg Tab 150 Mg PO DAILY Clonidine 168 HR Patch (Clonidine HCl) 0.2 Mg/24 Hr Patch 1 Patch T-DERMAL WEEKLY Sundays Bumetanide 2 Mg Tab 2 Mg PO BID Atorvastatin (Atorvastatin Calcium) 40 Mg Tab 40 Mg PO HS Amlodipine (Amlodipine Besylate) 10 Mg Tab 10 Mg PO DAILY Review of Systems Except as stated in HPI: all other systems reviewed are Neg Eyes: No: Blurred Vision HENT: No: Headaches, Lightheadedness Cardiovascular: No: Chest Pain or Discomfort Respiratory: No: Shortness of Breath Gastrointestinal: Positive: Abdominal Pain (upper quadrant tenderness chronic) , No: Nausea, Vomiting Genitourinary: No: Frequency, Dysuria Musculoskeletal: No: Myalgias Neurologic: No: Weakness, Dizziness, Syncope Physical Exam Narrative GENERAL: Overweight, well-developed, alert female. Resting comfortably in no acute distress. SKIN: Focused skin assessment warm/dry. HEAD: Atraumatic. Normocephalic. EYES: Pupils equal and round. No scleral icterus. No injection or drainage. ENT: No nasal bleeding or discharge. Mucous membranes pink and moist. NECK: Trachea midline. No JVD. CARDIOVASCULAR: Regular rate and rhythm. 2/6 systolic murmur.. RESPIRATORY: No accessory muscle use. Clear to auscultation. Breath sounds equal bilaterally. GASTROINTESTINAL: Abdomen soft, only tender to palpation in right upper quadrant , no guarding, nondistended. Hepatic and splenic margins not palpable. Positive bowel sounds. MUSCULOSKELETAL: No obvious deformities. No clubbing. No cyanosis. No edema. NEUROLOGICAL: Awake and alert. No obvious cranial nerve deficits. Motor grossly within normal limits. Normal speech. PSYCHIATRIC: Appropriate mood and affect; insight and judgment normal. Data Data Last Documented VS Vital Signs Date Time Temp Pulse Resp B/P Pulse Ox O2 Delivery O2 Flow Rate FiO2 06/27/16 11:57 94 Room Air 06/27/16 10:44 98.5 76 18 174/76 Orders Electrocardiogram (06/27/16 11:34) ^ Insert Iv (06/27/16 11:34) Lipase (06/27/16 11:34) Complete Blood Count With Diff (06/27/16 11:34) Comprehensive Metabolic Panel (06/27/16 11:34) Magnesium (Mg) (06/27/16 11:34) Beta Hydroxybutyrate (Acetone) (06/27/16 11:34) Urinalysis - C+S If Indicated (06/27/16 11:34) Chest, Single Ap (06/27/16 ) Ecg Monitoring (06/27/16 11:34) Oximetry (06/27/16 11:34) Insulin Human Regular Inj (Novolin R Inj (06/27/16 12:45) Blood Glucose (06/27/16 13:18) Insulin Human Regular Inj (Novolin R Inj (06/27/16 13:30) Labs Laboratory Tests Test 06/27/16 06/27/16 11:30 13:10 White Blood Count 5.6 TH/MM3 Red Blood Count 4.57 MIL/MM3 Hemoglobin 11.9 GM/DL Hematocrit 38.6 % Mean Corpuscular Volume 84.5 FL Mean Corpuscular Hemoglobin 26.1 PG Mean Corpuscular Hemoglobin 30.9 % Concent Red Cell Distribution Width 18.8 % Platelet Count 160 TH/MM3 Mean Platelet Volume 10.8 FL Neutrophils (%) (Auto) 63.3 % Lymphocytes (%) (Auto) 24.5 % Monocytes (%) (Auto) 8.7 % Eosinophils (%) (Auto) 2.5 % Basophils (%) (Auto) 1.0 % Neutrophils # (Auto) 3.6 TH/MM3 Lymphocytes # (Auto) 1.4 TH/MM3 Monocytes # (Auto) 0.5 TH/MM3 Eosinophils # (Auto) 0.1 TH/MM3 Basophils # (Auto) 0.1 TH/MM3 CBC Comment DIFF FINAL Differential Comment Sodium Level 135 MEQ/L Potassium Level 4.8 MEQ/L Chloride Level 98 MEQ/L Carbon Dioxide Level 28.4 MEQ/L Anion Gap 9 MEQ/L Blood Urea Nitrogen 41 MG/DL Creatinine 3.79 MG/DL Estimat Glomerular Filtration 14 ML/MIN Rate Random Glucose 560 MG/DL Calcium Level 9.5 MG/DL Magnesium Level 1.9 MG/DL Total Bilirubin 0.5 MG/DL Aspartate Amino Transf 99 U/L (AST/SGOT) Alanine Aminotransferase 69 U/L (ALT/SGPT) Alkaline Phosphatase 431 U/L Total Protein 8.0 GM/DL Albumin 2.9 GM/DL Lipase 370 U/L B-Hydroxybutyrate 0.14 MMOL/L Urine Color LIGHT-YELLOW Urine Turbidity CLEAR Urine pH 5.5 Urine Specific [place] 1.007 Urine Protein TRACE mg/dL Urine Glucose (UA) 1000 mg/dL Urine Ketones NEG mg/dL Urine Occult Blood NEG Urine Nitrite NEG Urine Bilirubin NEG Urine Urobilinogen LESS THAN 2.0 MG/DL Urine Leukocyte Esterase NEG Urine RBC 1 /hpf Urine WBC 1 /hpf Urine Squamous Epithelial 1 /hpf Cells Microscopic Urinalysis Comment CULT NOT INDICATED MDM Medical Decision Making Medical Screen Exam Complete: Yes Emergency Medical Condition: Yes Interpretation(s) Last Impressions Chest X-Ray 06/27/16 0000 Signed Impressions: Service Date/Time: Monday, June 27, 2016 11:46 - CONCLUSION: Bibasilar atelectasis. Addy Nuñez MD Laboratory Tests Test 06/27/16 06/27/16 11:30 13:10 White Blood Count 5.6 TH/MM3 Red Blood Count 4.57 MIL/MM3 Hemoglobin 11.9 GM/DL Hematocrit 38.6 % Mean Corpuscular Volume 84.5 FL Mean Corpuscular Hemoglobin 26.1 PG Mean Corpuscular Hemoglobin 30.9 % Concent Red Cell Distribution Width 18.8 % Platelet Count 160 TH/MM3 Mean Platelet Volume 10.8 FL Neutrophils (%) (Auto) 63.3 % Lymphocytes (%) (Auto) 24.5 % Monocytes (%) (Auto) 8.7 % Eosinophils (%) (Auto) 2.5 % Basophils (%) (Auto) 1.0 % Neutrophils # (Auto) 3.6 TH/MM3 Lymphocytes # (Auto) 1.4 TH/MM3 Monocytes # (Auto) 0.5 TH/MM3 Eosinophils # (Auto) 0.1 TH/MM3 Basophils # (Auto) 0.1 TH/MM3 CBC Comment DIFF FINAL Differential Comment Sodium Level 135 MEQ/L Potassium Level 4.8 MEQ/L Chloride Level 98 MEQ/L Carbon Dioxide Level 28.4 MEQ/L Anion Gap 9 MEQ/L Blood Urea Nitrogen 41 MG/DL Creatinine 3.79 MG/DL Estimat Glomerular Filtration 14 ML/MIN Rate Random Glucose 560 MG/DL Calcium Level 9.5 MG/DL Magnesium Level 1.9 MG/DL Total Bilirubin 0.5 MG/DL Aspartate Amino Transf 99 U/L (AST/SGOT) Alanine Aminotransferase 69 U/L (ALT/SGPT) Alkaline Phosphatase 431 U/L Total Protein 8.0 GM/DL Albumin 2.9 GM/DL Lipase 370 U/L B-Hydroxybutyrate 0.14 MMOL/L Urine Color LIGHT-YELLOW Urine Turbidity CLEAR Urine pH 5.5 Urine Specific [place] 1.007 Urine Protein TRACE mg/dL Urine Glucose (UA) 1000 mg/dL Urine Ketones NEG mg/dL Urine Occult Blood NEG Urine Nitrite NEG Urine Bilirubin NEG Urine Urobilinogen LESS THAN 2.0 MG/DL Urine Leukocyte Esterase NEG Urine RBC 1 /hpf Urine WBC 1 /hpf Urine Squamous Epithelial 1 /hpf Cells Microscopic Urinalysis Comment CULT NOT INDICATED Vital Signs Date Time Temp Pulse Resp B/P Pulse Ox O2 Delivery O2 Flow Rate FiO2 06/27/16 11:57 94 Room Air 06/27/16 10:44 98.5 76 18 174/76 92 Differential Diagnosis DKA versus hyperglycemia versus urinary tract infection versus left foot abnormality versus cardiac arrhythmia versus other Narrative Course Patient is 75-year-old female presenting to the emergency room for evaluation of elevated blood glucose reading. She reports right upper quadrant abdominal pain, mildly tender on exam. She has documented liver mass for which she is supposed to follow-up with Dr. Mendes. Vital signs are stable, IV access established, labs and imaging ordered and pending. Daughter at bedside. Patient is resting comfortably in no acute distress. Beta hydroxybutyrate is 0.14 CBC is unremarkable Chemistry with elevated BUN/creatinine, this is to be expected patient is end- stage renal disease on hemodialysis. Anion gap is normal. Mild transaminitis noted. 10 units of regular insulin ordered. Urinalysis is unremarkable Blood glucose was 425 after administration of 10 units of regular insulin. Additional 5 units of insulin was given. Blood glucose reassessed at 189. Patient encouraged to maintain 1800-calorie diabetic diet, avoid concentrated sweets. She was encouraged follow-up with her primary care provider, Accu- Cheks before meals and at bedtime as previously advised. She was encouraged to return to emergency department for any new or worsening symptoms. Patient and daughter verbalized understanding of instructions. Patient is stable for discharge. Diagnosis Primary Impression: Hyperglycemia Additional Impression: Type 2 diabetes mellitus Qualified Code: E11.22 - Type 2 diabetes mellitus with chronic kidney disease on chronic dialysis, unspecified emt intermediate insulin use status Referrals: Jhon Vallecillo MD [facility] Primary Care Physician Patient Instructions: Diabetic Hyperglycemia (ED), General Instructions Additional Instructions: Maintain an 1800-calorie diabetic diet, avoid concentrated sweets, fruit juices , soda Continue monitoring blood glucose before meals and before bed Continue regular insulin sliding scale as previously advised Continue Levemir as previously advised Return to emergency department for any new or worsening symptoms Med/Other Pt SpecificInfo: No Change to Meds Disposition: 01 DISCHARGE HOME Condition: Stable Julisa Melendrez June 27, 2016 12:14
[2016-06-27 12:24] LABS: ALKALINE PHOSPHATASE 431 U/L (45-117); ALT (GPT) 69 U/L (10-53); ANION GAP 9 MEQ/L (5-15); AST (GOT) 99 U/L (15-37); BETA-HYDROXYBUTYRATE 0.14 MMOL/L (0.00-0.39); BICARBONATE 28.4 MEQ/L (21.0-32.0); BLOOD UREA NITROGEN 41 MG/DL (7-18); CHLORIDE 98 MEQ/L (98-107); GLOMERULAR FILTRATION RATE 14 ML/MIN (>89); MAGNESIUM 1.9 MG/DL (1.5-2.5); POTASSIUM 4.8 MEQ/L (3.5-5.1); SODIUM (NA) 135 MEQ/L (136-145); TOTAL BILIRUBIN ADULT 0.5 MG/DL (0.2-1.0)
--- NOTE | 2016-06-27 12:42 | RADRPT ---
EXAM DATE/TIME: 06/27/2016 11:46 [facility] COMPARISON: CHEST SINGLE AP, March 30, 2016, 15:27. INDICATIONS : Short of breath, increased blood pressure and high blood sugar. MEDICAL HISTORY : Diabetes mellitus type II. Renal failure, chronic. Hypertension. Diabetes mellitus type 2. Hep C SURGICAL HISTORY : Hysterectomy. ENCOUNTER: Initial ACUITY: 1 day PAIN SCORE: 0/10 LOCATION: Bilateral chest FINDINGS: A single view of the chest demonstrates bibasilar atelectasis. Heart normal in size. Osseous structu res are intact. CONCLUSION: Bibasilar atelectasis. Addy Nuñez MD on June 27, 2016 at 12:40 Board Certified Radiologist. This report was verified electronically.
[2016-06-27] MEDS ORDERED: INSULIN HUMAN REGULAR 1,000 UNITS/10 ML VIAL SQ ONE ×2 (12:45→13:30)
[2016-06-27 13:37] LABS: BLOOD, URINE NEG (NEG); COMMENT (UR) CULT NOT INDICATED; CULTURE IF INDICATED CULT NOT INDICATED; GLUCOSE,URINE 1000 mg/dL (NEG); KETONE, URINE NEG (NEG); NITRITE,URINE NEG (NEG); PH, URINE 5.5 (5.0-8.5); SQUAMOUS EPITHELIAL CELL URINE 1 /hpf (0-5); URINE COLOR LIGHT-YELLOW (YELLW/STRAW)
[2016-06-27 14:27] VITALS: BP 163/73
--- NOTE | 2016-06-28 11:07 | EKG ---
Date Performed: 06/27/2016 Time Performed: 12:26:34 PTAGE: 75 years EKG: Sinus rhythm POSSIBLE LEFT ATRIAL ENLARGEMENT MARKED LEFT AXIS DEVIATION ABNORMAL ECG PREVIOUS TRACING : 03/30/2016 19.02 DOCTOR: Santi Salinas Interpretating Date/Time 06/28/2016 11:06:12
== END 2016-06-27 14:31 | disposition home or self-care (01) ==
LOC: NEPC 10:37
DX: E11.65 Type 2 diabetes mellitus with hyperglycemia (principal); I12.0 Hypertensive chronic kidney disease with stage 5 chronic kidney disease or end stage renal disease; N18.6 End stage renal disease; D64.9 Anemia, unspecified; E78.00 Pure hypercholesterolemia, unspecified; I50.9 Heart failure, unspecified; I25.10 Atherosclerotic heart disease of native coronary artery without angina pectoris; B19.20 Unspecified viral hepatitis C without hepatic coma; G62.9 Polyneuropathy, unspecified; K21.9 Gastro-esophageal reflux disease without esophagitis; Z79.01 Long term (current) use of anticoagulants; Z86.73 Personal history of transient ischemic attack (TIA), and cerebral infarction without residual deficits; Z99.2 Dependence on renal dialysis
CPT/HCPCS: 71010; 80053; 81001; 82010; 83690; 83735; 85025; 93005; 96372; 99285; J1815